=== PATIENT | male | born 1990 | race Caucasian/White ===

== ENCOUNTER 2018-06-21 15:54 | Emergency (ER) | payer OTHER, SELFPAY ==
--- NOTE | 2018-06-21 15:56 | ED_ITS ---
HPI - Extremity Injury (Upper) <DORINDA Quevedo - Last Filed: 06/21/18 21:51> General Chief Complaint: Skin/Abscess/Foreign Body Stated Complaint: LT HAND INJURY Time Seen by Provider: 06/21/18 15:55 Source: patient Mode of arrival: ambulatory Limitations: no limitations History of Present Illness HPI narrative: 28-year-old male here for complaint of lacerations and abrasions to his left hand. He states that he got his hand caught into a drill press when he was wearing a glove and the glove caught in the bit of the drill press pulling his hand into the drill bit. He reports this happened just prior to arrival. He reports pain across the dorsal aspect of the left hand. Increased pain with motion of the left hand. He does not know when his last tetanus was. He denies any other injuries or concerns at this timeframe. complaint: injury to: left Related Data Home Medications Medication Instructions Recorded Confirmed No Known Home Medications 06/21/18 06/21/18 Allergies Allergy/AdvReac Type Severity Reaction Status Date / Time No Known Drug Allergies Allergy Verified 06/21/18 16:00 Review of Systems <DORINDA Quevedo - Last Filed: 06/21/18 21:51> Constitutional Denies chills, Denies fever(s), Denies lethargy and Denies weakness Eyes Denies change in vision, Denies eye discharge, Denies irritation and Denies loss of vision ENT Ears, Nose, Mouth, and Throat: Denies change in voice, Denies neck pain and Denies sore throat Cardiovascular Denies chest pain, Denies irregular heart rhythm, Denies lightheadedness, Denies palpitations, Denies dyspnea, Denies dyspnea on exertion and Denies orthopnea Respiratory Denies cough, Denies dyspnea, Denies dyspnea on exertion and Denies wheezing Gastrointestinal Gastrointestinal: Denies abdominal pain, Denies change in bowel habits, Denies diarrhea, Denies nausea and Denies vomiting Genitourinary Denies hematuria, Denies flank pain, Denies urinary incontinence and Denies urinary urgency Musculoskeletal Denies neck pain Comments: Left hand pain and abrasions Integumentary/Breasts Denies pruritus, Denies erythema, Denies rash and Denies wounds Neurologic Denies confusion, Denies loss of vision and Denies weakness Psychiatric Denies anxiety, Denies confusion, Denies depression, Denies homicidal ideation and Denies suicidal ideation Endocrine Denies palpitations Hematologic/Lymphatic Denies easy bruising Allergic/Immunologic Denies wheezing Exam <DORINDA Quevedo - Last Filed: 06/21/18 21:51> Initial Vital Signs Initial Vital Signs: Vital Signs Temperature 98.9 F 06/21/18 15:57 Pulse Rate 63 06/21/18 15:57 Respiratory Rate 14 06/21/18 15:57 Blood Pressure 119/77 06/21/18 15:57 Pulse Oximetry 97 06/21/18 15:57 Const General: cooperative and well developed Nutritional Appearance: well nourished Orientation: alert, awake, oriented x3 and not confused HENMT Mouth: oral mucosae normal and moist mucous membranes Eyes Conjunctivae: conjunctivae normal Sclera: sclerae normal Pupils: PERRL EOM: EOM intact bilaterally Resp Effort & Inspection: normal respiratory effort, able to speak in complete sentences, no respiratory distress and no use of accessory muscles Auscultation: clear to auscultation bilaterally, no rales, no rhonchi and no wheezes Cardio Rate: regular rate Rhythm: regular rhythm Heart Sounds: no click, no gallops, no murmurs and no rubs Pulses: normal peripheral pulses Skin General: no rashes or lesions noted, No jaundice and No petechiae Neuro General: alert, oriented x3, gait normal and no focal motor deficits Speech: speech normal Extrem Other: Left hand with abrasions to the dorsal aspect of the left hand. 1.5 cm laceration to the dorsal aspect of the left hand proximal to the thumb. Distal sensation is intact. Full range of motion. Distal cap refill less than 2 sec. Distal pulses intact <Regino Rice DO - Last Filed: 06/22/18 12:58> Initial Vital Signs Initial Vital Signs: Vital Signs Temperature 98.9 F 06/21/18 15:57 Pulse Rate 63 06/21/18 15:57 Respiratory Rate 14 06/21/18 15:57 Blood Pressure 119/77 06/21/18 15:57 Pulse Oximetry 97 06/21/18 15:57 Procedures <DORINDA Quevedo - Last Filed: 06/21/18 21:51> Laceration Repair Laceration 1: Site: hand Side (If applicable): left Size (cm): 2 Description: irregular Depth: simple, single layer Local Anesthetic: lidocaine 1% Amount of anesthesia used (mL): 2 Pre-repair: wound explored and irrigated extensively Skin layer closed with: nylon Size (cm): 5-0 Number of sutures: 4 Technique: simple, interrupted Course <DORINDA Quevedo - Last Filed: 06/21/18 21:51> Orders Ordered: Discontinued Medications Diphtheria/Tetanus/Acell Pertussis (Adacel) 0.5 ml IM .ONCE ONE Stop: 06/21/18 16:16 Last Admin: 06/21/18 17:05 Dose: 0.5 ml Vital Signs - 8 hr 06/21/18 15:57 06/21/18 18:38 Temperature 98.9 F Pulse Rate 63 80 Respiratory Rate 14 18 Blood Pressure 119/77 113/70 Pulse Oximetry 97 100 <Regino Rice DO - Last Filed: 06/22/18 12:58> Orders Ordered: Discontinued Medications Diphtheria/Tetanus/Acell Pertussis (Adacel) 0.5 ml IM .ONCE ONE Stop: 06/21/18 16:16 Last Admin: 06/21/18 17:05 Dose: 0.5 ml Vital Signs - 8 hr 06/21/18 15:57 06/21/18 18:38 Temperature 98.9 F Pulse Rate 63 80 Respiratory Rate 14 18 Blood Pressure 119/77 113/70 Pulse Oximetry 97 100 MDM - Extremity Injury (Upper) <DORINDA Quevedo - Last Filed: 06/21/18 21:51> Imaging Data Left hand: Radiologist's impression: XRay Report Signed Patient: Ciaran Garcia MR#: [id number] : 1990 Acct:[id number] Age/Sex: 28 / M Date of Service: 06/21/18 Loc: ED Accession Number: [id number] Procedure: XR hand LT min 3V Ordering Provider: Ciaran Tavarez PROCEDURE: XR HAND LT MIN 3V INDICATIONS: LEFT HAND PAIN TECHNIQUE: 3 views of the hand(s) acquired. COMPARISON: None. FINDINGS: Bones: No fractures or dislocations. Carpal bones are normally aligned. No suspicious bony lesions. Soft tissues: No suspicious soft tissue calcifications. IMPRESSION: No acute radiographic findings. If pain persists, repeat study in 5 -7 days is recommended to exclude occult fracture. Dictated by: Sherri Frost M.D. on 06/21/2018 at 18:01 Approved by: Sherri Frost M.D. on 06/21/2018 at 18:02 [facility] Narrative Medical decision making narrative: x-ray of left hand was obtained and was negative for fracture. Laceration to the left hand was closed with 4 sutures. Wounds dressed with bacitracin and a dressing. Tetanus was updated in the emergency room. Sutures removed in 7-10 days. Follow up with primary care provider later this week for re-evaluation. For any worsening symptoms return to the emergency room. Dress wound daily with bacitracin and a dressing until healed. Keep wound clean and dry for the next 24 hr. After this timeframe a shower briefly. No swimming or emergent. After shower dry wound dressed with bacitracin and dressing. [id number] Tylenol or Motrin as needed for any discomfort. Discharge Plan Departure Patient Disposition: Home Clinical Impression: Injury of hand, left, Laceration of hand, left Discharge Date/Time: 06/21/18 18:38 Interventions: ED Discharge Assessment Last Done: 06/21/18 18:38 Instructions: DI for Hand Injury Activity Restrictions/Additional Instructions: x-ray of left hand was obtained and was negative for fracture. Laceration to the left hand was closed with 4 sutures. Wounds dressed with bacitracin and a dressing. Tetanus was updated in the emergency room. Sutures removed in 7-10 days. Follow up with primary care provider later this week for re-evaluation. For any worsening symptoms return to the emergency room. Dress wound daily with bacitracin and a dressing until healed. Keep wound clean and dry for the next 24 hr. After this timeframe a shower briefly. No swimming or emergent. After shower dry wound dressed with bacitracin and dressing. [id number] Tylenol or Motrin as needed for any discomfort. Prescriptions: No Action No Known Home Medications RF: 0 Referrals: Ora Friend PA-C [Primary Care Provider] - Stand Alone Forms: Against Medical Advice <Regino Rice DO - Last Filed: 06/22/18 12:58> Cosign ED Attending Cosignature Attestation: I was immediately available in the department for consultation. Documentation has been reviewed. I agree with assessment and plan.
[2018-06-21 15:57] VITALS: BP 119/77; PULSE 63; RESP 14; TEMP 37.2; O2SAT 97; BMI 21.7
[2018-06-21] MEDS: TET,DIPH,PERTUSS(ACELL),VAC/PF 0.5 ML SYRINGE IM (17:05)
--- NOTE | 2018-06-21 17:45 | DI.RAD.S_ITS ---
PROCEDURE: XR HAND LT MIN 3V INDICATIONS: LEFT HAND PAIN TECHNIQUE: 3 views of the hand(s) acquired. COMPARISON: None. FINDINGS: Bones: No fractures or dislocations. Carpal bones are normally aligned. No suspicious bony lesions. Soft tissues: No suspicious soft tissue calcifications. IMPRESSION: No acute radiographic findings. If pain persists, repeat study in 5-7 days is recommended to exclude occult fracture. Dictated by: Sherri Frost M.D. on 06/21/2018 at 18:01 Approved by: Sherri Frost M.D. on 06/21/2018 at 18:02
--- NOTE | 2018-06-21 18:02 | PC.NURSE ---
placed telfa, conform and bacitracin per Corby.
[2018-06-21 18:38] VITALS: BP 113/70; PULSE 80; RESP 18; O2SAT 100
== END 2018-06-21 18:38 | disposition home or self-care (01) ==
PROVIDERS: Emergency Provider Nurse Practitioner Family; PCP Physician Assistant
DX: S61.412A Laceration without foreign body of left hand, initial encounter (principal); W31.1XXA Contact with metalworking machines, initial encounter
CPT/HCPCS: 12002; 73130; 90471; 99282; 99283; 90715

== ENCOUNTER → 2020-06-09 16:49 | Outpatient (CLI) | payer OTHER, MEDICAID, SELFPAY ==
--- NOTE | 2020-06-09 16:53 | DI.RAD.S_ITS ---
PROCEDURE: XR TIBIA FIBULA RT 2V INDICATIONS: trauma to hernandez, 2x2cm nontender lump, r/o bony abnormality TECHNIQUE: 2 views of the tibia and fibula were acquired. COMPARISON: None. FINDINGS: Bones: No fractures or dislocations. No suspicious bony lesions. Mild anterior soft tissue swelling IMPRESSION: No fracture Dictated by: Keanu Angel M.D. on 06/09/2020 at 17:20 Approved by: Keanu Angel M.D. on 06/09/2020 at 17:21
== END ==
PROVIDERS: Referring Provider Physician Assistant; Visit Provider Physician Assistant
DX: R22.42 Localized swelling, mass and lump, left lower limb (principal); S89.91XA Unspecified injury of right lower leg, initial encounter; X58.XXXA Exposure to other specified factors, initial encounter
CPT/HCPCS: 73590

== ENCOUNTER 2020-09-05 17:22 | Emergency (ER) | payer OTHER, MEDICAID, SELFPAY ==
--- NOTE | 2020-09-05 17:39 | DI.RAD.S_ITS ---
PROCEDURE: XR HIP W PEL IF DONE RT 2V INDICATIONS: Trauma, fell off skateboard hitting hip on concrete TECHNIQUE: Two views of the right hip (AP view of the pelvis and frog-leg view of the right hip) COMPARISON: None. FINDINGS: Bones: No fractures or dislocations. No suspicious bony lesions. The visualized pelvic ring appears intact. Soft tissues: No suspicious soft tissue calcifications or masses. IMPRESSION: Normal study. Dictated by: Jeferson Fonseca M.D. on 09/05/2020 at 18:15 Approved by: Jeferson Fonseca M.D. on 09/05/2020 at 18:15
[2020-09-05 17:40] VITALS: BP 125/78; PULSE 71; RESP 14; TEMP 36.7; O2SAT 99; BMI 21.1
[2020-09-05] MEDS: KETOROLAC 60 MG/2 ML VIAL 30 MG IM (18:24)
--- NOTE | 2020-09-05 19:16 | ED.LOWEXIN ---
HPI - Extremity Injury (Lower) <MERRITT Phan - Last Filed: 09/05/20 19:19> General Chief Complaint: Extremity Injury, Lower Stated Complaint: skateboard fall, injured right side hip Time Seen by Provider: 09/05/20 17:40 Source: patient Mode of arrival: Wheelchair Limitations: no limitations History of Present Illness HPI Narrative: The patient is a 30-year-old male former smoker with no pertinent medical history presents with a chief complaint of right-sided hip pain after falling off a skateboard. He slipped and fell this hip on a cement edge. He has an abrasion there. He states has been increasing his painful since that happened this afternoon. He did not hit his head, denies any neck or back pain. He states his tetanus is within the past few years. Related Data Home Medications Medication Instructions Recorded Confirmed No Known Home Medications 06/21/18 06/09/20 Previous Rx's Medication Instructions Recorded ketorolac 10 mg PO TID PRN #14 tab 09/05/20 Allergies Allergy/AdvReac Type Severity Reaction Status Date / Time No Known Drug Allergies Allergy Verified 09/05/20 17:40 Review of Systems <MERRITT Phan - Last Filed: 09/05/20 19:19> Review of Systems Narrative: GENERAL: Denies chills, fatigue, malaise, fever, sweats. HEENT: Denies sinus pain, ear pain, sore throat, difficulty swallowing, dizziness. RESPIRATORY: Denies dyspnea, cough, wheezing, hemoptysis, sputum. CARDIOVASCULAR: Denies chest pain, palpitations, orthopnea, edema, GASTROINTESTINAL: Denies nausea, vomiting, abdominal pain, diarrhea, constipation, melena. : Denies dysuria, frequency, incontinence, hematuria, urinary retention. MUSCULOSKELETAL: See HPI SKIN: See HPI NEUROLOGIC: Denies weakness, headache, numbness, change in speech, confusion, seizures, incoordination. PSYCHIATRIC: No concerning psychosocial issues. 12 point review of systems is negative except for those stated above Patient History <MERRITT Phan - Last Filed: 09/05/20 19:19> Medical History Lump of skin of left lower extremity (Acute) No significant past medical history (Acute) Family History Father Essential hypertension Heart muscle disorder caused by another medical condition Mother Essential hypertension Irritable bowel syndrome without diarrhea Alcoholism Social History Smoking Status: Former smoker Smoking Status: Former smoker alcohol intake frequency: 0-2 drinks per day Substance Use Type: does not use Exam <MERRITT Phan - Last Filed: 09/05/20 19:19> Narrative Exam Narrative: GENERAL: This is a well-nourished, well-developed patient, in no acute distress HEAD: Atraumatic. Normocephalic. No temporal or scalp tenderness. EYES: Pupils equal round and reactive. Extraocular motions intact. No scleral icterus. No injection or drainage. ENT: Nose without bleeding, purulent drainage or septal hematoma. Wearing a mask Airway patent. NECK: Trachea midline. No JVD or lymphadenopathy. Supple, nontender, no meningeal signs. CARDIOVASCULAR: Regular rate and rhythm without murmurs, gallops, or rubs. RESPIRATORY: Clear to auscultation. Breath sounds equal bilaterally. No wheezes, rales, or rhonchi. No cough. No increased respiratory effort. No accessory muscle use. GI: Active bowel sounds all 4 quadrants. No pain to palpation, no guarding EXTREMITIES: See skin exam. Pain to palpation generalized right hip. Decreased range of motion all montes. Positive right pedal pulses. BACK: No pain to CT or L-spine palpation. Nontender without deformity or crepitance. No flank tenderness. NEURO: AOx3. SKIN: 2 x 3 cm abrasion noted on right hip. Surrounded ecchymosis. Initial Vital Signs Initial Vital Signs: Vital Signs Temperature 98.0 F 09/05/20 17:40 Pulse Rate 71 09/05/20 17:40 Respiratory Rate 14 09/05/20 17:40 Blood Pressure 125/78 09/05/20 17:40 Pulse Oximetry 99 09/05/20 17:40 <Memo Castillo DO - Last Filed: 09/05/20 19:28> Initial Vital Signs Initial Vital Signs: Vital Signs Temperature 98.0 F 09/05/20 17:40 Pulse Rate 71 09/05/20 17:40 Respiratory Rate 14 09/05/20 17:40 Blood Pressure 125/78 09/05/20 17:40 Pulse Oximetry 99 09/05/20 17:40 Scores <MERRITT Phan - Last Filed: 09/05/20 19:19> GCS Branch coma scale eye opening: Spontaneous Lacey coma scale verbal response: Orientated Branch coma scale motor response: Obey commands Lacey coma scale total score: 15 Course <MERRITT Phan - Last Filed: 09/05/20 19:19> Orders Ordered: ED Orders 09/05/20 17:39 XR hip w pel if done RT 2V Stat Discontinued Medications Ketorolac Tromethamine (Toradol) 30 mg IM NOW ONE Stop: 09/05/20 18:21 Last Admin: 09/05/20 18:24 Dose: 30 mg Documented by: ARIANE Vital Signs Vital signs: Vital Signs - 8 hr 09/05/20 17:40 09/05/20 19:22 Temperature 98.0 F Pulse Rate 71 61 Respiratory Rate 14 14 Blood Pressure 125/78 119/66 Pulse Oximetry 99 98 <Memo Castillo DO - Last Filed: 09/05/20 19:28> Orders Ordered: ED Orders 09/05/20 17:39 XR hip w pel if done RT 2V Stat Discontinued Medications Ketorolac Tromethamine (Toradol) 30 mg IM NOW ONE Stop: 09/05/20 18:21 Last Admin: 09/05/20 18:24 Dose: 30 mg Documented by: ARIANE Vital Signs Vital signs: Vital Signs - 8 hr 09/05/20 17:40 09/05/20 19:22 Temperature 98.0 F Pulse Rate 71 61 Respiratory Rate 14 14 Blood Pressure 125/78 119/66 Pulse Oximetry 99 98 MDM - Extremity Injury (Lower) <MERRITT Phan - Last Filed: 09/05/20 19:19> Imaging Data Hip x-ray: Radiologist's Impression: [address] [place] [id number] XRay Report Signed Patient: Ciaran Garcia [facility]#: [id number] : 1990Acct:[id number] Age/Sex: 30 / MDate of Service: 09/05/20 Loc: ED Accession Number: [id number] Procedure: XR hip w pel if done RT 2V Ordering Provider: Nakita Mlils D.O. PROCEDURE: XR HIP W PEL IF DONE RT 2V INDICATIONS: Trauma, fell off skateboard hitting hip on concrete TECHNIQUE: Two views of the right hip (AP view of the pelvis and frog-leg view of the right hip) COMPARISON: None. FINDINGS: Bones: No fractures or dislocations. No suspicious bony lesions. The visualized pelvic ring appears intact. Soft tissues: No suspicious soft tissue calcifications or masses. IMPRESSION: Normal study. Dictated by: Jeferson Fonseca M.D. on 09/05/2020 at 18:15 Approved by: Jeferson Fonseca M.D. on 09/05/2020 at 18:15 [facility] Narrative Medical decision making narrative: The patient is a 30-year-old male who presents with a chief complaint of hip pain after follow-up of his skateboard. He is neurovascularly intact, has a negative x-ray nasal ambulate well. Toradol helped improve his pain, small prescription provided. Discussed not combining with Aleve or ibuprofen. Encouraged follow-up with primary care provider in the next few days. Discussed monitoring his abrasion for signs symptoms of infection such as redness extending erythema etcetera. Patient has no questions or concerns upon discharge and states understanding return precautions as well as follow-up care. He is able to ambulate hemodynamically stable upon discharge. Discharge Plan Departure Patient Disposition: Home Clinical Impression: Fall from skateboard, initial encounter, Abrasion Contusion of hip Qualifiers: Encounter type: initial encounter Laterality: right Qualified Code(s): S70.01XA - Contusion of right hip, initial encounter Discharge Date/Time: 09/05/20 19:22 Instructions: Help for Hip Pain, DI for Contusion, DI for Abrasion, DI for Hip Pain Activity Restrictions/Additional Instructions: Thank you for trusting us with your care today As I discussed, your x-ray shows no acute fracture. This does not rule out a soft tissue injury such as a ligament or tendon injury. It is important that you follow up with primary care provider, especially if worsening or no improvement. There can be fractures that did not show up on initial x-ray. I have given you a prescription of Toradol. This is an NSAID. Do not combine it with other NSAIDs such as Aleve or ibuprofen. I suggest taking it with some food, as it can irritate your stomach. Please use rest and ice as well. Please come back to emergency department for any acute concerns. Please follow-up with primary care provider next few days Prescriptions: New ketorolac 10 mg tablet 10 mg PO TID PRN (Reason: pain) Qty: 14 RF: 0 No Action No Known Home Medications RF: 0 <Memo Castillo, DO - Last Filed: 09/05/20 19:28> Cosign ED Attending Cosignature Attestation: Dr Castillo Co-Sign Statement: I was available for consultation during this patient's emergency department visit. This chart is signed by myself for administrative purposes only. I did not have direct contact with this patient during this visit. They were seen independently by the APC.
[2020-09-05 19:22] VITALS: BP 119/66; PULSE 61; RESP 14; O2SAT 98
== END 2020-09-05 19:22 | disposition home or self-care (01) ==
PROVIDERS: Emergency Provider Nurse Practitioner Family
DX: S70.01XA Contusion of right hip, initial encounter (principal); S70.211A Abrasion, right hip, initial encounter; V00.131A Fall from skateboard, initial encounter
CPT/HCPCS: 73502; 96372; 99283; J1885

== ENCOUNTER → 2020-09-19 09:54 | Outpatient (CLI) | payer OTHER, MEDICAID, SELFPAY ==
[2020-09-19 10:26] LABS: Add Manual Diff / Slide Review NO; Basophils Absolute Auto 0 /uL (0-100); Basophils Percent Auto 0.5 % (0-2); Eosinophils Absolute Auto 100 /uL (0-450); Eosinophils Percent Auto 2.8 % (2-4); Hematocrit 41.7 % (41-53); Hemoglobin 14.2 g/dL (13.5-17.5); Lymphocytes Absolute Auto 1100 /uL (1100-4500); Lymphocytes Percent Auto 43.7 % (25-40); Mean Corpuscular HGB Conc 34.1 % (30-36); Mean Corpuscular Hemoglobin 32.1 PG (26-34); Mean Corpuscular Volume 94.1 fL (80-100); Monocytes Absolute Auto 200 /uL (0-900); Monocytes Percent Auto 6.4 % (3-14); Neutrophils Absolute Auto 1200 /uL (1500-7000); Neutrophils Percent Auto 46.6 % (50-75); Platelet Count 203 X10^3/uL (150-400); Red Blood Cell Count 4.43 X10^6/uL (4.5-5.9); White Blood Cell Count 2.5 X10^3/uL (4.5-11.0)
[2020-09-19 10:41] LABS: Alanine Aminotransferase 17 IU/L (<50); Albumin 4.5 g/dL (3.5-5.0); Albumin Globulin Ratio 1.6 (1.0-2.8); Alkaline Phosphatase 71 U/L (38-126); Aspartate Aminotransferase 30 IU/L (17-59); BUN Creatinine Ratio 16.7 (6-22); Bilirubin Total 1.5 mg/dL (0.2-1.3); Blood Urea Nitrogen 13 mg/dL (9-20); Calcium 9.8 mg/dL (8.4-10.2); Carbon Dioxide 31 mmol/L (22-32); Chloride 103 mmol/L (98-107); Cholesterol 168 mg/dL (140-199); Estimated Glomerular Filt Rate > 60.0 mL/min (>60); Globulin 2.9 g/dL (1.7-4.1); Glucose 95 mg/dL (70-100); HDL Cholesterol 65 mg/dL (40-60); HEMOLYSIS < 15 (0-50); LDL Cholesterol Calculated 83 mg/dL (<100); Potassium 4.7 mmol/L (3.4-5.1); Sodium 137 mmol/L (137-145); Total Protein 7.4 g/dL (6.3-8.2); Triglycerides 99 mg/dL (35-150)
[2020-09-19 11:17] LABS: Creatinine Urine Random 49.5 mg/dL; Microalbumin Urine Random < 0.6 mg/dL (0-1.6)
[2020-09-19 11:37] LABS: TSH w/ Reflex to FT4 2.61 uIU/mL (0.47-4.68)
== END ==
PROVIDERS: PCP Family Medicine; Referring Provider Family Medicine; Visit Provider Family Medicine
DX: Z13.220 Encounter for screening for lipoid disorders (principal); Z13.228 Encounter for screening for other metabolic disorders; Z13.29 Encounter for screening for other suspected endocrine disorder; Z82.49 Family history of ischemic heart disease and other diseases of the circulatory system
CPT/HCPCS: 36415; 80053; 80061; 82043; 82570; 84443; 85025

== ENCOUNTER → 2020-09-29 10:43 | Outpatient (CLI) | payer OTHER, MEDICAID, SELFPAY ==
[2020-09-29 12:15] LABS: Add Manual Diff / Slide Review NO; Basophils Absolute Auto 0 /uL (0-100); Basophils Percent Auto 0.6 % (0-2); Eosinophils Absolute Auto 100 /uL (0-450); Eosinophils Percent Auto 2.8 % (2-4); Hematocrit 42.6 % (41-53); Hemoglobin 14.5 g/dL (13.5-17.5); Lymphocytes Absolute Auto 1500 /uL (1100-4500); Lymphocytes Percent Auto 47.9 % (25-40); Mean Corpuscular HGB Conc 34.1 % (30-36); Mean Corpuscular Volume 93.8 fL (80-100); Monocytes Absolute Auto 200 /uL (0-900); Monocytes Percent Auto 7.5 % (3-14); Neutrophils Absolute Auto 1300 /uL (1500-7000); Neutrophils Percent Auto 41.2 % (50-75); Platelet Count 184 X10^3/uL (150-400); Red Blood Cell Count 4.54 X10^6/uL (4.5-5.9); White Blood Cell Count 3.1 X10^3/uL (4.5-11.0)
== END ==
PROVIDERS: PCP Family Medicine; Referring Provider Family Medicine; Visit Provider Family Medicine
DX: Z13.220 Encounter for screening for lipoid disorders (principal); Z13.228 Encounter for screening for other metabolic disorders; Z13.29 Encounter for screening for other suspected endocrine disorder; Z82.49 Family history of ischemic heart disease and other diseases of the circulatory system
CPT/HCPCS: 36415; 85025

== ENCOUNTER → 2022-09-17 14:28 | Outpatient (CLI) | payer OTHER, MEDICAID, SELFPAY ==
[2022-09-17 15:35] LABS: Add Manual Diff / Slide Review NO; Basophils Absolute Auto 0 /uL (0-100); Basophils Percent Auto 0.4 % (0-2); Eosinophils Absolute Auto 0 /uL (0-450); Eosinophils Percent Auto 1.1 % (2-4); Hematocrit 38.4 % (41-53); Hemoglobin 13.1 g/dL (13.5-17.5); Lymphocytes Absolute Auto 1000 /uL (1100-4500); Lymphocytes Percent Auto 34.4 % (25-40); Mean Corpuscular HGB Conc 34.1 % (30-36); Mean Corpuscular Hemoglobin 31.8 PG (26-34); Mean Corpuscular Volume 93.2 fL (80-100); Monocytes Absolute Auto 200 /uL (0-900); Monocytes Percent Auto 6.8 % (3-14); Neutrophils Absolute Auto 1600 /uL (1500-7000); Neutrophils Percent Auto 57.3 % (50-75); Platelet Count 195 X10^3/uL (150-400); Red Blood Cell Count 4.12 X10^6/uL (4.5-5.9); Red Cell Distribution Width 13.3 % (11.6-14.8); White Blood Cell Count 2.9 X10^3/uL (4.5-11.0)
[2022-09-17 15:46] LABS: Hemoglobin A1C% w Est Avg Glu 5.1 % (4.0-6.0)
[2022-09-17 16:24] LABS: Alanine Aminotransferase 23 IU/L (<50); Albumin 4.5 g/dL (3.5-5.0); Albumin Globulin Ratio 1.6 (1.0-2.8); Alkaline Phosphatase 73 U/L (38-126); Aspartate Aminotransferase 36 IU/L (17-59); BUN Creatinine Ratio 16.3 (6-22); Bilirubin Total 1.8 mg/dL (0.2-1.3); Blood Urea Nitrogen 14 mg/dL (9-20); Calcium 9.1 mg/dL (8.4-10.2); Carbon Dioxide 29 mmol/L (22-32); Chloride 100 mmol/L (98-107); Cholesterol 164 mg/dL (140-199); Estimated Glomerular Filt Rate > 60 mL/min (>60); Globulin 2.9 g/dL (1.7-4.1); Glucose 87 mg/dL (70-100); HDL Cholesterol 76 mg/dL (40-60); HEMOLYSIS < 15 (0-50); LDL Cholesterol Calculated 76 mg/dL (<100); Sodium 137 mmol/L (137-145); Total Protein 7.4 g/dL (6.3-8.2); Triglycerides 62 mg/dL (35-150)
== END ==
PROVIDERS: PCP Family Medicine; Referring Provider Family Medicine; Visit Provider Family Medicine
DX: Z00.00 Encounter for general adult medical examination without abnormal findings (principal); Z13.9 Encounter for screening, unspecified
CPT/HCPCS: 36415; 80053; 80061; 83036; 84443; 85025

== ENCOUNTER → 2023-03-01 10:38 | Outpatient (CLI) | payer OTHER, MEDICAID, SELFPAY ==
[2023-03-01 11:31] LABS: Add Manual Diff / Slide Review NO; Basophils Absolute Auto 0 /uL (0-100); Basophils Percent Auto 0.4 % (0-2); Eosinophils Absolute Auto 100 /uL (0-450); Eosinophils Percent Auto 1.7 % (2-4); Hematocrit 41.1 % (41-53); Hemoglobin 14.1 g/dL (13.5-17.5); Lymphocytes Absolute Auto 1100 /uL (1100-4500); Lymphocytes Percent Auto 31.7 % (25-40); Mean Corpuscular HGB Conc 34.4 % (30-36); Mean Corpuscular Hemoglobin 32.2 PG (26-34); Mean Corpuscular Volume 93.6 fL (80-100); Monocytes Absolute Auto 200 /uL (0-900); Monocytes Percent Auto 5.2 % (3-14); Neutrophils Absolute Auto 2100 /uL (1500-7000); Platelet Count 178 X10^3/uL (150-400); Red Blood Cell Count 4.39 X10^6/uL (4.5-5.9); Red Cell Distribution Width 13.6 % (11.6-14.8); White Blood Cell Count 3.4 X10^3/uL (4.5-11.0)
[2023-03-01 13:15] LABS: HEMOLYSIS 18 (0-50); Iron 110 ug/dL (49-181)
[2023-03-01 13:20] LABS: Alanine Aminotransferase 26 IU/L (<50); Albumin 4.5 g/dL (3.5-5.0); Albumin Globulin Ratio 1.9 (1.0-2.8); Alkaline Phosphatase 77 U/L (38-126); Aspartate Aminotransferase 34 IU/L (17-59); BUN Creatinine Ratio 21.5 (6-22); Bilirubin Total 1.1 mg/dL (0.2-1.3); Blood Urea Nitrogen 17 mg/dL (9-20); Calcium 9.3 mg/dL (8.4-10.2); Carbon Dioxide 27 mmol/L (22-32); Chloride 103 mmol/L (98-107); Estimated Glomerular Filt Rate > 60 mL/min (>60); Globulin 2.4 g/dL (1.7-4.1); Glucose 72 mg/dL (70-100); HEMOLYSIS < 15 (0-50); Potassium 4.4 mmol/L (3.4-5.1); Sodium 138 mmol/L (137-145); Total Protein 6.9 g/dL (6.3-8.2)
[2023-03-01 13:27] LABS: Percent Iron Saturation 36 % (20-50); Total Iron Binding Capacity 302 ug/dL (261-462); Transferrin 231 mg/dL (206-381)
[2023-03-01 14:05] LABS: Vitamin B12 333 pg/mL (239-931)
[2023-03-01 15:31] LABS: Vitamin D 25 Hydroxy (D3) 25.4 ng/mL (30.0-100.0)
[2023-03-02 07:36] LABS: x Labcorp Estim. Avg Glu (eAG) 105 mg/dL (.); x Labcorp Hemoglobin A1c 5.3 % (4.8-5.6)
== END ==
PROVIDERS: Family Provider Family Medicine; PCP Family Medicine; Referring Provider Family Medicine; Visit Provider Family Medicine
DX: Z00.00 Encounter for general adult medical examination without abnormal findings (principal); Z13.1 Encounter for screening for diabetes mellitus; Z13.9 Encounter for screening, unspecified
CPT/HCPCS: 36415; 80053; 82306; 82607; 83036; 83540; 83550; 85025

== ENCOUNTER 2023-05-06 15:15 | Outpatient (RCR) | payer OTHER, MEDICAID, SELFPAY ==
--- NOTE | 2023-03-29 15:30 | PT.OIE ---
Current Diagnoses Stiffness of right hip, not elsewhere classified (03/29/23) Stiffness of left hip, not elsewhere classified (03/29/23) Stiffness of other specified joint, not elsewhere classified (03/29/23) Low back pain, unspecified (03/29/23) Past Medical History (Last Reviewed 03/16/23 @ 09:23 by Ruel Best DO) Allergic rhinitis Encounter for well adult exam without abnormal findings History of anemia due to vitamin B12 deficiency Leukopenia Lump of skin of left lower extremity Male fertility problem No significant past medical history Right hip pain Vitamin D deficiency Visit Care Team Role Provider Type Ruel Best DO Attending Provider Physician Family Provider Primary Care Provider Referring Provider Specialty: [facility] Practice Address: [address] [place] [address], [facility] Email: [email or web address] Physical Therapy Initial Evaluation PT-OP-A Visit Information Start: 03/29/23 17:38 Freq: Status: Active Protocol: Document 03/29/23 14:45 DCW (Rec: 03/29/23 17:47 DCW [id number]) Out-Patient Physical Therapy Visit Information Visit Information Visit Type Initial Evaluation Visit Start Time 14:45 Visit Stop Time 15:25 Total Visit Minutes 40 Visit Number 1 Number of SKIN CARE INSTRUCTOR Visits 0 Evaluation Information Evaluation Date 03/29/23 PT-OP-B Current Condition Start: 03/29/23 17:38 Freq: Status: Active Protocol: Document 03/29/23 14:45 DCW (Rec: 03/29/23 17:47 DCW [id number]) Current Condition History of Current Condition Onset Date A few month history Current Complaints Low back pain and stiffness History of Current Condition Pt is a 33 year old male presenting with a 2-3 month history of low back pain and stiffness. 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 Upon return to work, pt was noticing that his back just wasn't feeling right, and reports unusual nerve sensations, but only in his back, not down his legs. Notes his pain might be a little better since it began, has been seeing a chiropractor, does a lot of foam roll and LE stretching. Pain seems to be worse with extended static standing, bending over his sink to do dishes, or lifting weight. PT-OP-C Subjective Start: 03/29/23 17:38 Freq: Status: Active Protocol: Document 03/29/23 14:45 DCW (Rec: 03/29/23 17:47 DCW [id number]) OP-PT Subjective Patient Comments Patient Comments I know this is really fairly moderate pain, I just don't want it to get worse. Patient Questionnaires Oswestry Low Back Index Oswestry Score 8/50 = 16% OP-PT Pain Assessment Pain Assessment Grid Paper Pain Assessment Grid Completed See scan PT-OP-F Manual Assessment Start: 03/29/23 17:38 Freq: Status: Active Protocol: Document 03/29/23 14:45 DCW (Rec: 03/30/23 16:10 DCW [id number]) Manual Assessments Soft Tissue Assessment Soft Tissue Mobility Assessment Lumbar paraspinals (L>R) moderate tone with tenderness to palpation 2/4: Pain with wincing Joint Mobility Assessment Joint Mobility Assessment L1-L5 hypomobility PT-OP-K Range of Motion Start: 03/29/23 17:38 Freq: Status: Active Protocol: Document 03/29/23 14:45 DCW (Rec: 03/29/23 17:50 DCW [id number]) Lumbar Spine Range of Motion Lumbar Spine Active Degrees Testing Position Standing Flexion 75 Extension 10 Lateral Flexion Left 57 Lateral Flexion Right 61 ROM Limitations Bony Restriction Comments Lateral flexion measured in cm from fingertips to floor PT-OP-L Special Tests Start: 03/29/23 17:38 Freq: Status: Active Protocol: Document 03/29/23 14:45 DCW (Rec: 03/29/23 17:50 DCW [id number]) Special Tests Lumbar Spine Special Tests Vertical Spine Loading Test Results Increased pain with compression during left lateral flexion Straight Leg Raise Test Results Hamstring tightness at 50? bilaterally Standing Flexion Test Results Negative Slump Test Results Negative Manual Traction Test Results Negative Compression Test Results Negative A-P Shearing Test Results Negative PT-OP-M Strength Start: 03/29/23 17:38 Freq: Status: Active Protocol: Document 03/29/23 14:45 DCW (Rec: 03/30/23 16:10 DCW [id number]) Trunk Strength Trunk Manual Muscle Testing Core Stabilization Good core contraction, able to maintain abdominal bracing with double leg lift. PT-OP-T Assessment and Plan Start: 03/29/23 17:38 Freq: Status: Active Protocol: Document 03/29/23 14:45 DCW (Rec: 03/30/23 16:23 DCW [id number]) Physical Therapy Assessment Rehab Potential Rehabilitation Potential Good Evaluation Complexity Number of Personal Factors/Comorbidities 0 Number of Body Systems Impaired 1-2 Clinical Presentation at Evaluation Stable Impairments Impairments Activity Tolerance,Functional Activities,Functional Mobility ,Pain,Posture,ROM,Soft Tissue Mobility,Strength,Tone Goals Three Impairment Standing lumbar extension measured at 10? Chipper Operator Goal (LTG) Pt to display an increase in active lumbar extension of at least 15? to 25? to demonstrate ability to participate in pain-free functional mobility LTG Duration 05/29/23 Two Impairment Pt experiences increased pain when standing bent over at his sink Chipper Operator Goal (LTG) Pt to report ability to stand and wash dishes for 30 minutes without increased back pain. LTG Duration 05/29/23 One Impairment Pt does not have an appropriate home exercise program Short Term Goal (STG) Pt to be independent and compliant with an appropriate HEP STG Duration 04/29/23 Assessment Summary Assessment Pt presents with signs and symptoms consistent with referring diagnosis of low back pain. Pt has general soft tissue stiffness in paraspinals musculature, as well as hypomobility of lumbar vertebrae, both with joint mobilizations and limitations actively getting into extension. Also demonstrates hamstring tightness and hip flexor tightness, which is likely increasing limitations of lumbar mobility. Pt does display good overall strength, and has already begun an good low back stretching routine. Biggest current limitations include bending over at the sink to wash dishes, static standing, or lifting weights. Will benefit from skilled therapy focusing on body mechanics, stretching/ flexibility, ROM, core stabilization education, and traction. Physical Therapy Plan Frequency and Duration Frequency of Treatment 2x/Week Plan of Care Start Date 03/29/23 Plan of Care End Date 05/29/23 Therapeutic Interventions Therapeutic Interventions Home Exercise Program,Joint Mobilizations,Manual Therapy, Neuromuscular Re-education, Patient/Caregiver Education, Self-Care/Home Management,Soft Tissue Mobilization, Therapeutic Activities, Therapeutic Exercises Modalities Cold Pack/Ice Massage,Electric Stimulation,Hot Packs, Ultrasound Next Visit Focus/Plan Next Note Type Treatment Note Next Visit Plan Lumbar mobility, body mechanics training, STM
--- NOTE | 2023-03-29 15:30 | PT.OPPOC ---
Physical, Occupational & Speech Therapy At [facility] Current Diagnoses Stiffness of right hip, not elsewhere classified (03/29/23) Stiffness of left hip, not elsewhere classified (03/29/23) Stiffness of other specified joint, not elsewhere classified (03/29/23) Low back pain, unspecified (03/29/23) Visit Care Team Role Provider Type Ruel Best DO Attending Provider Physician Family Provider Primary Care Provider Referring Provider Specialty: Family Practice Address: [address] [place] [address] Email: [email or web address] Plan Of Care PT-OP-T Assessment and Plan Start: 03/29/23 17:38 Freq: Status: Active Protocol: Document 03/29/23 14:45 DCW (Rec: 03/30/23 16:23 DCW [id number]) Physical Therapy Assessment Rehab Potential Rehabilitation Potential Good Evaluation Complexity Number of Personal Factors/Comorbidities 0 Number of Body Systems Impaired 1-2 Clinical Presentation at Evaluation Stable Impairments Impairments Activity Tolerance,Functional Activities,Functional Mobility ,Pain,Posture,ROM,Soft Tissue Mobility,Strength,Tone Goals Three Impairment Standing lumbar extension measured at 10? Or Nurse Manager Goal (LTG) Pt to display an increase in active lumbar extension of at least 15? to 25? to demonstrate ability to participate in pain-free functional mobility LTG Duration 05/29/23 Two Impairment Pt experiences increased pain when standing bent over at his sink Care Home Goal (LTG) Pt to report ability to stand and wash dishes for 30 minutes without increased back pain. LTG Duration 05/29/23 One Impairment Pt does not have an appropriate home exercise program Short Term Goal (STG) Pt to be independent and compliant with an appropriate HEP STG Duration 04/29/23 Assessment Summary Assessment Pt presents with signs and symptoms consistent with referring diagnosis of low back pain. Pt has general soft tissue stiffness in paraspinals musculature, as well as hypomobility of lumbar vertebrae, both with joint mobilizations and limitations actively getting into extension. Also demonstrates hamstring tightness and hip flexor tightness, which is likely increasing limitations of lumbar mobility. Pt does display good overall strength, and has already begun an good low back stretching routine. Biggest current limitations include bending over at the sink to wash dishes, static standing, or lifting weights. Will benefit from skilled therapy focusing on body mechanics, stretching/ flexibility, ROM, core stabilization education, and traction. Physical Therapy Plan Frequency and Duration Frequency of Treatment 2x/Week Plan of Care Start Date 03/29/23 Plan of Care End Date 05/29/23 Therapeutic Interventions Therapeutic Interventions Home Exercise Program,Joint Mobilizations,Manual Therapy, Neuromuscular Re-education, Patient/Caregiver Education, Self-Care/Home Management,Soft Tissue Mobilization, Therapeutic Activities, Therapeutic Exercises Modalities Cold Pack/Ice Massage,Electric Stimulation,Hot Packs, Ultrasound Next Visit Focus/Plan Next Note Type Treatment Note Next Visit Plan Lumbar mobility, body mechanics training, STM Plan of Care Dates Plan of Care Start Date 03/29/23 Plan of Care End Date 05/29/23 Electronically Signed by: Omero Fox, PT 03/30/23 4126 If you are in agreement with this Plan of Care, please return a signed and dated copy. I have reviewed this Plan of Care and certify that the skilled therapy services above are required to meet the patient?s needs. Physician Signature Date Printed Name and Credentials Clinical Instructor Signature Printed Name and Credentials
--- NOTE | 2023-03-31 14:45 | PT.OTN ---
Current Diagnoses Stiffness of right hip, not elsewhere classified (03/31/23) Stiffness of left hip, not elsewhere classified (03/31/23) Stiffness of other specified joint, not elsewhere classified (03/31/23) Low back pain, unspecified (03/31/23) Physical Therapy Treatment Note PT-OP-A Visit Information Start: 03/29/23 17:38 Freq: Status: Active Protocol: Document 03/31/23 14:00 DCW (Rec: 03/31/23 14:45 DCW [id number]) Out-Patient Physical Therapy Visit Information Visit Information Visit Type Treatment Note Visit Start Time 14:00 Visit Stop Time 14:45 Total Visit Minutes 45 Visit Number 2 Number of RADIO DIVISION OFFICER Visits 0 Evaluation Information Evaluation Date 03/29/23 PT-OP-B Current Condition Start: 03/29/23 17:38 Freq: Status: Active Protocol: Document 03/29/23 14:45 DCW (Rec: 03/29/23 17:47 DCW [id number]) Current Condition History of Current Condition Onset Date A few month history Current Complaints Low back pain and stiffness History of Current Condition Pt is a 33 year old male presenting with a 2-3 month history of low back pain and stiffness. 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 Upon return to work, pt was noticing that his back just wasn't feeling right, and reports unusual nerve sensations, but only in his back, not down his legs. Notes his pain might be a little better since it began, has been seeing a chiropractor, does a lot of foam roll and LE stretching. Pain seems to be worse with extended static standing, bending over his sink to do dishes, or lifting weight. PT-OP-C Subjective Start: 03/29/23 17:38 Freq: Status: Active Protocol: Document 03/31/23 14:00 DCW (Rec: 03/31/23 14:45 DCW [id number]) OP-PT Subjective Patient Comments Patient Comments Pt reports his back feels pretty good, admits that he has been working on his hamstring stretch, but has maybe hit it too hard. PT-OP-F Manual Assessment Start: 03/29/23 17:38 Freq: Status: Active Protocol: Document 03/29/23 14:45 DCW (Rec: 03/30/23 16:10 DCW [id number]) Manual Assessments Soft Tissue Assessment Soft Tissue Mobility Assessment Lumbar paraspinals (L>R) moderate tone with tenderness to palpation 2/4: Pain with wincing Joint Mobility Assessment Joint Mobility Assessment L1-L5 hypomobility PT-OP-K Range of Motion Start: 03/29/23 17:38 Freq: Status: Active Protocol: Document 03/29/23 14:45 DCW (Rec: 03/29/23 17:50 DCW [id number]) Lumbar Spine Range of Motion Lumbar Spine Active Degrees Testing Position Standing Flexion 75 Extension 10 Lateral Flexion Left 57 Lateral Flexion Right 61 ROM Limitations Bony Restriction Comments Lateral flexion measured in cm from fingertips to floor PT-OP-L Special Tests Start: 03/29/23 17:38 Freq: Status: Active Protocol: Document 03/29/23 14:45 DCW (Rec: 03/29/23 17:50 DCW [id number]) Special Tests Lumbar Spine Special Tests Vertical Spine Loading Test Results Increased pain with compression during left lateral flexion Straight Leg Raise Test Results Hamstring tightness at 50? bilaterally Standing Flexion Test Results Negative Slump Test Results Negative Manual Traction Test Results Negative Compression Test Results Negative A-P Shearing Test Results Negative PT-OP-M Strength Start: 03/29/23 17:38 Freq: Status: Active Protocol: Document 03/29/23 14:45 DCW (Rec: 03/30/23 16:10 DCW [id number]) Trunk Strength Trunk Manual Muscle Testing Core Stabilization Good core contraction, able to maintain abdominal bracing with double leg lift. PT-OP-Q Treatments Start: 03/29/23 17:38 Freq: Status: Active Protocol: Document 03/31/23 14:00 DCW (Rec: 03/31/23 14:45 DCW [id number]) Gym Equipment Therapeutic Ball Pelvic tilts/circles Exercise Details Pelvic tilts/circles Ball Size/Color Green - 65 cm Body Position Sitting Therapeutic Exercises Standing Exercises Pallof press Standing Exercise Name Pallof press Side bilateral Resistance Green Manual Therapy Treatment Soft Tissue Mobilization Lumbar Paraspinals Body Location Lumbar paraspinals Mobilization Type Strumming,Sustained Pressure Intensity/Depth Moderate Body Position Prone Joint Mobilizations Lumbar Joint L1-5 Direction P-A Grade III Manual Traction Lower Extremity Details Short-axis B LE traction Body Position Hooklying Nerve Glides Sciatic Nerve glide Nerve Siatic nerve glide Body Position Seated Comments Hold LAQ with cervical flexion /extension combined with PF/DF PT-OP-T Assessment and Plan Start: 03/29/23 17:38 Freq: Status: Active Protocol: Document 03/31/23 14:00 DCW (Rec: 03/31/23 14:45 DCW [id number]) Physical Therapy Assessment Impairments Impairments Activity Tolerance,Functional Activities,Functional Mobility ,Pain,Posture,ROM,Soft Tissue Mobility,Strength,Tone Goals Three Impairment Standing lumbar extension measured at 10? Concrete Sculptor Goal (LTG) Pt to display an increase in active lumbar extension of at least 15? to 25? to demonstrate ability to participate in pain-free functional mobility LTG Duration 05/29/23 Two Impairment Pt experiences increased pain when standing bent over at his sink Concrete Sculptor Goal (LTG) Pt to report ability to stand and wash dishes for 30 minutes without increased back pain. LTG Duration 05/29/23 One Impairment Pt does not have an appropriate home exercise program Short Term Goal (STG) Pt to be independent and compliant with an appropriate HEP STG Duration 04/29/23 Assessment Summary Assessment Pt noted some small achiness with treatment, but admitted it felt really good to get it moving. Tolerated treatment well, continue to focus on decreasing lumbar paraspinal tone and work to address lifting mechanics. Physical Therapy Plan Frequency and Duration Frequency of Treatment 2x/Week Plan of Care Start Date 03/29/23 Plan of Care End Date 05/29/23 Therapeutic Interventions Therapeutic Interventions Home Exercise Program,Joint Mobilizations,Manual Therapy, Neuromuscular Re-education, Patient/Caregiver Education, Self-Care/Home Management,Soft Tissue Mobilization, Therapeutic Activities, Therapeutic Exercises Modalities Cold Pack/Ice Massage,Electric Stimulation,Hot Packs, Ultrasound Next Visit Focus/Plan Next Note Type Treatment Note Next Visit Plan Lumbar mobility, body mechanics training, STM
--- NOTE | 2023-04-06 11:04 | PT.OTN ---
Current Diagnoses Stiffness of right hip, not elsewhere classified (04/06/23) Stiffness of left hip, not elsewhere classified (04/06/23) Stiffness of other specified joint, not elsewhere classified (04/06/23) Low back pain, unspecified (04/06/23) Physical Therapy Treatment Note PT-OP-A Visit Information Start: 03/29/23 17:38 Freq: Status: Active Protocol: Document 04/06/23 10:15 DCW (Rec: 04/06/23 11:04 DCW [id number]) Out-Patient Physical Therapy Visit Information Visit Information Visit Type Treatment Note Visit Start Time 10:15 Visit Stop Time 11:00 Total Visit Minutes 45 Visit Number 3 Number of PASTRY SOUS CHEF Visits 0 Evaluation Information Evaluation Date 03/29/23 PT-OP-B Current Condition Start: 03/29/23 17:38 Freq: Status: Active Protocol: Document 03/29/23 14:45 DCW (Rec: 03/29/23 17:47 DCW [id number]) Current Condition History of Current Condition Onset Date A few month history Current Complaints Low back pain and stiffness History of Current Condition Pt is a 33 year old male presenting with a 2-3 month history of low back pain and stiffness. 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 Upon return to work, pt was noticing that his back just wasn't feeling right, and reports unusual nerve sensations, but only in his back, not down his legs. Notes his pain might be a little better since it began, has been seeing a chiropractor, does a lot of foam roll and LE stretching. Pain seems to be worse with extended static standing, bending over his sink to do dishes, or lifting weight. PT-OP-C Subjective Start: 03/29/23 17:38 Freq: Status: Active Protocol: Document 04/06/23 10:15 DCW (Rec: 04/06/23 11:04 DCW [id number]) OP-PT Subjective Patient Comments Patient Comments I feel like I irritated it over the weekend. PT-OP-F Manual Assessment Start: 03/29/23 17:38 Freq: Status: Active Protocol: Document 03/29/23 14:45 DCW (Rec: 03/30/23 16:10 DCW [id number]) Manual Assessments Soft Tissue Assessment Soft Tissue Mobility Assessment Lumbar paraspinals (L>R) moderate tone with tenderness to palpation 2/4: Pain with wincing Joint Mobility Assessment Joint Mobility Assessment L1-L5 hypomobility PT-OP-K Range of Motion Start: 03/29/23 17:38 Freq: Status: Active Protocol: Document 03/29/23 14:45 DCW (Rec: 03/29/23 17:50 DCW [id number]) Lumbar Spine Range of Motion Lumbar Spine Active Degrees Testing Position Standing Flexion 75 Extension 10 Lateral Flexion Left 57 Lateral Flexion Right 61 ROM Limitations Bony Restriction Comments Lateral flexion measured in cm from fingertips to floor PT-OP-L Special Tests Start: 03/29/23 17:38 Freq: Status: Active Protocol: Document 03/29/23 14:45 DCW (Rec: 03/29/23 17:50 DCW [id number]) Special Tests Lumbar Spine Special Tests Vertical Spine Loading Test Results Increased pain with compression during left lateral flexion Straight Leg Raise Test Results Hamstring tightness at 50? bilaterally Standing Flexion Test Results Negative Slump Test Results Negative Manual Traction Test Results Negative Compression Test Results Negative A-P Shearing Test Results Negative PT-OP-M Strength Start: 03/29/23 17:38 Freq: Status: Active Protocol: Document 03/29/23 14:45 DCW (Rec: 03/30/23 16:10 DCW [id number]) Trunk Strength Trunk Manual Muscle Testing Core Stabilization Good core contraction, able to maintain abdominal bracing with double leg lift. PT-OP-Q Treatments Start: 03/29/23 17:38 Freq: Status: Active Protocol: Document 04/06/23 10:15 DCW (Rec: 04/06/23 11:04 DCW [id number]) Gym Equipment Therapeutic Ball Pelvic tilts/circles Exercise Details Pelvic tilts/circles Ball Size/Color Green - 65 cm Body Position Sitting Therapeutic Exercises Supine Exercises Piriformis Supine Exercise Name Piriformis stretch Side bilateral Comments Opposite knee to shoulder Prone Exercises Hip Flexors Prone Exercise Name Hip Flexor stretch Side bilateral Comments Manual hip extension stretch Sidelying Exercises Open Book Sidelying Exercise Name Open Book Side bilateral Manual Therapy Treatment Soft Tissue Mobilization Lumbar Paraspinals Body Location Lumbar paraspinals Mobilization Type Strumming,Sustained Pressure Intensity/Depth Moderate Body Position Prone Joint Mobilizations Lumbar Joint L1-5 Direction P-A Grade III Manual Traction Lower Extremity Details Short-axis B LE traction Body Position Hooklying PT-OP-T Assessment and Plan Start: 03/29/23 17:38 Freq: Status: Active Protocol: Document 04/06/23 10:15 DCW (Rec: 04/06/23 11:04 DCW [id number]) Physical Therapy Assessment Impairments Impairments Activity Tolerance,Functional Activities,Functional Mobility ,Pain,Posture,ROM,Soft Tissue Mobility,Strength,Tone Goals Three Impairment Standing lumbar extension measured at 10? Chcf Goal (LTG) Pt to display an increase in active lumbar extension of at least 15? to 25? to demonstrate ability to participate in pain-free functional mobility LTG Duration 05/29/23 Two Impairment Pt experiences increased pain when standing bent over at his sink Chcf Goal (LTG) Pt to report ability to stand and wash dishes for 30 minutes without increased back pain. LTG Duration 05/29/23 One Impairment Pt does not have an appropriate home exercise program Short Term Goal (STG) Pt to be independent and compliant with an appropriate HEP STG Duration 04/29/23 Assessment Summary Assessment Pt felt as though his back has loosened up after treatment today, benefitting from stretching. Still requires better core bracing with most activities Physical Therapy Plan Frequency and Duration Frequency of Treatment 2x/Week Plan of Care Start Date 03/29/23 Plan of Care End Date 05/29/23 Therapeutic Interventions Therapeutic Interventions Home Exercise Program,Joint Mobilizations,Manual Therapy, Neuromuscular Re-education, Patient/Caregiver Education, Self-Care/Home Management,Soft Tissue Mobilization, Therapeutic Activities, Therapeutic Exercises Modalities Cold Pack/Ice Massage,Electric Stimulation,Hot Packs, Ultrasound Next Visit Focus/Plan Next Note Type Treatment Note Next Visit Plan Lumbar mobility, body mechanics training, STM
--- NOTE | 2023-04-08 09:00 | PT.OTN ---
Addendum entered and electronically signed by Caitlin Dixon PTA 04/08/23 17:31: Pt good feedback response to use foam roller and stretching to incorporate at work for decreased tightness BLEs. He no irritation in LS during added LS rotation and revisit palloff press. Pt will pay attention later day and home over weekend. Original Note: Current Diagnoses Stiffness of right hip, not elsewhere classified (04/08/23) Stiffness of left hip, not elsewhere classified (04/08/23) Stiffness of other specified joint, not elsewhere classified (04/08/23) Low back pain, unspecified (04/08/23) Physical Therapy Treatment Note PT-OP-A Visit Information Start: 03/29/23 17:38 Freq: Status: Active Protocol: Document 04/08/23 08:18 SP (Rec: 04/08/23 09:02 SP [id number]) Out-Patient Physical Therapy Visit Information Visit Information Visit Type Treatment Note Visit Start Time 08:18 Visit Stop Time 09:00 Total Visit Minutes 42 Visit Number 4 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 Upon return to work, pt was noticing that his back just wasn't feeling right, and reports unusual nerve sensations, but only in his back, not down his legs. Notes his pain might be a little better since it began, has been seeing a chiropractor, does a lot of foam roll and LE stretching. Pain seems to be worse with extended static standing, bending over his sink to do dishes, or lifting weight. 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 Doesn't have a tball to do at home. He reports has been engaging TA with activities as instructed to support back during job duties. Patient Reported Progress Improving PT-OP-F Manual Assessment Start: 03/29/23 17:38 Freq: Status: Active Protocol: Document 03/29/23 14:45 DCW (Rec: 03/30/23 16:10 DCW [id number]) Manual Assessments Soft Tissue Assessment Soft Tissue Mobility Assessment Lumbar paraspinals (L>R) moderate tone with tenderness to palpation 2/4: Pain with wincing Joint Mobility Assessment Joint Mobility Assessment L1-L5 hypomobility PT-OP-K Range of Motion Start: 03/29/23 17:38 Freq: Status: Active Protocol: Document 03/29/23 14:45 DCW (Rec: 03/29/23 17:50 DCW [id number]) Lumbar Spine Range of Motion Lumbar Spine Active Degrees Testing Position Standing Flexion 75 Extension 10 Lateral Flexion Left 57 Lateral Flexion Right 61 ROM Limitations Bony Restriction Comments Lateral flexion measured in cm from fingertips to floor PT-OP-L Special Tests Start: 03/29/23 17:38 Freq: Status: Active Protocol: Document 03/29/23 14:45 DCW (Rec: 03/29/23 17:50 DCW [id number]) Special Tests Lumbar Spine Special Tests Vertical Spine Loading Test Results Increased pain with compression during left lateral flexion Straight Leg Raise Test Results Hamstring tightness at 50? bilaterally Standing Flexion Test Results Negative Slump Test Results Negative Manual Traction Test Results Negative Compression Test Results Negative A-P Shearing Test Results Negative PT-OP-M Strength Start: 03/29/23 17:38 Freq: Status: Active Protocol: Document 03/29/23 14:45 DCW (Rec: 03/30/23 16:10 DCW [id number]) Trunk Strength Trunk Manual Muscle Testing Core Stabilization Good core contraction, able to maintain abdominal bracing with double leg lift. PT-OP-Q Treatments Start: 03/29/23 17:38 Freq: Status: Active Protocol: Document 04/08/23 08:18 SP (Rec: 04/08/23 09:02 SP [id number]) Gym Equipment Therapeutic Ball Pelvic tilts/circles Exercise Details Pelvic tilts/circles/ march/ LAQ/LS rotation (GTB/Rolling stool) Ball Size/Color Green - 65 cm Body Position Sitting Reps/Duration x10 reps each Comments cued slow, elevated posturing, neutral spine Therapeutic Exercises Sitting Exercises foam rolling Sitting Exercise Name REviewed self rolling: glut, HS, ITB, quad Side bilateral Equipment Used foam roller, also lacross ball HS&glut Reps/Minutes 5 min total Comments occasional cues for trunk/ UE/ LE positioning, tolerance time/pressure Standing Exercises Pallof press Standing Exercise Name Pallof press Side bilateral Resistance Green TB (seated roll stool) Reps/Minutes x10 Other Exercises Child's pose Other Exercise Name reviewed a self stretch Reps/Minutes 30 x2 Comments cued not over pressure or to long irritate back has experienced in past. 1/2 kneel hip flexor stretch Other Exercise Name added to HEP Side bilateral Reps/Minutes 60 Comments cued reach OH and neutral pelvis. Good stretch reported Self-Care/Home Management Treatment Education Patient Education Body Mechanics,Home Exercise Program,Joint Protection,Pain Management,Posture,Safety Other Education Brief time spent on TA and mechanics during ADLs, landscaping and importance of core stabililzation for back health with balance of flexibility use of foam roller has and proper use. PT-OP-T Assessment and Plan Start: 03/29/23 17:38 Freq: Status: Active Protocol: Document 04/08/23 08:18 SP (Rec: 04/08/23 09:02 SP [id number]) Physical Therapy Assessment Goals Three Impairment Standing lumbar extension measured at 10? Extension Edger Goal (LTG) Pt to display an increase in active lumbar extension of at least 15? to 25? to demonstrate ability to participate in pain-free functional mobility LTG Duration 05/29/23 Two Impairment Pt experiences increased pain when standing bent over at his sink Usp Goal (LTG) Pt to report ability to stand and wash dishes for 30 minutes without increased back pain. LTG Duration 05/29/23 One Impairment Pt does not have an appropriate home exercise program Short Term Goal (STG) Pt to be independent and compliant with an appropriate HEP STG Duration 04/29/23 Assessment Summary Assessment Pt good feedback response to review self use of foam roller for decreased tightness BLEs. He no irritation in LS during added resisted LS rotation and revisit palloff press with no adverse affects. Will pay attention later day and home over weekend. Declined HO. Physical Therapy Plan Frequency and Duration Frequency of Treatment 2x/Week Plan of Care Start Date 03/29/23 Plan of Care End Date 05/29/23 Therapeutic Interventions Therapeutic Interventions Home Exercise Program,Joint Mobilizations,Manual Therapy, Neuromuscular Re-education, Patient/Caregiver Education, Self-Care/Home Management,Soft Tissue Mobilization, Therapeutic Activities, Therapeutic Exercises Modalities Cold Pack/Ice Massage,Electric Stimulation,Hot Packs, Ultrasound Next Visit Focus/Plan Next Note Type Treatment Note Next Visit Plan REcheck added foam roller/ self STMs, progressed tball/ core progression. 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 POC: Lumbar mobility, body mechanics training, STM
--- NOTE | 2023-04-08 09:02 | PT.OTN ---
Current Diagnoses Stiffness of right hip, not elsewhere classified (04/08/23) Stiffness of left hip, not elsewhere classified (04/08/23) Stiffness of other specified joint, not elsewhere classified (04/08/23) Low back pain, unspecified (04/08/23) Physical Therapy Treatment Note PT-OP-A Visit Information Start: 03/29/23 17:38 Freq: Status: Active Protocol: Document 04/08/23 08:18 SP (Rec: 04/08/23 09:02 SP [id number]) Out-Patient Physical Therapy Visit Information Visit Information Visit Type Treatment Note Visit Start Time 08:18 Visit Stop Time 09:00 Total Visit Minutes 42 Visit Number 4 Number of UNDERCOVER COP Visits 1 Evaluation Information Evaluation Date 03/29/23 PT-OP-B Current Condition Start: 03/29/23 17:38 Freq: Status: Active Protocol: Document 03/29/23 14:45 DCW (Rec: 03/29/23 17:47 DCW [id number]) Current Condition History of Current Condition Onset Date A few month history Current Complaints Low back pain and stiffness History of Current Condition Pt is a 33 year old male presenting with a 2-3 month history of low back pain and stiffness. 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 Upon return to work, pt was noticing that his back just wasn't feeling right, and reports unusual nerve sensations, but only in his back, not down his legs. Notes his pain might be a little better since it began, has been seeing a chiropractor, does a lot of foam roll and LE stretching. Pain seems to be worse with extended static standing, bending over his sink to do dishes, or lifting weight. 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 Doesn't have a tball to do at home. He reports has been engaging TA with activities as instructed to support back. PT-OP-F Manual Assessment Start: 03/29/23 17:38 Freq: Status: Active Protocol: Document 03/29/23 14:45 DCW (Rec: 03/30/23 16:10 DCW [id number]) Manual Assessments Soft Tissue Assessment Soft Tissue Mobility Assessment Lumbar paraspinals (L>R) moderate tone with tenderness to palpation 2/4: Pain with wincing Joint Mobility Assessment Joint Mobility Assessment L1-L5 hypomobility PT-OP-K Range of Motion Start: 03/29/23 17:38 Freq: Status: Active Protocol: Document 03/29/23 14:45 DCW (Rec: 03/29/23 17:50 DCW [id number]) Lumbar Spine Range of Motion Lumbar Spine Active Degrees Testing Position Standing Flexion 75 Extension 10 Lateral Flexion Left 57 Lateral Flexion Right 61 ROM Limitations Bony Restriction Comments Lateral flexion measured in cm from fingertips to floor PT-OP-L Special Tests Start: 03/29/23 17:38 Freq: Status: Active Protocol: Document 03/29/23 14:45 DCW (Rec: 03/29/23 17:50 DCW [id number]) Special Tests Lumbar Spine Special Tests Vertical Spine Loading Test Results Increased pain with compression during left lateral flexion Straight Leg Raise Test Results Hamstring tightness at 50? bilaterally Standing Flexion Test Results Negative Slump Test Results Negative Manual Traction Test Results Negative Compression Test Results Negative A-P Shearing Test Results Negative PT-OP-M Strength Start: 03/29/23 17:38 Freq: Status: Active Protocol: Document 03/29/23 14:45 DCW (Rec: 03/30/23 16:10 DCW [id number]) Trunk Strength Trunk Manual Muscle Testing Core Stabilization Good core contraction, able to maintain abdominal bracing with double leg lift. PT-OP-Q Treatments Start: 03/29/23 17:38 Freq: Status: Active Protocol: Document 04/08/23 08:18 SP (Rec: 04/08/23 09:02 SP [id number]) Gym Equipment Therapeutic Ball Pelvic tilts/circles Exercise Details Pelvic tilts/circles/ march/ LAQ/LS rotation (GTB/Rolling stool) Ball Size/Color Green - 65 cm Body Position Sitting Reps/Duration x10 reps each Comments cued slow, elevated posturing, neutral spine Therapeutic Exercises Sitting Exercises foam rolling Sitting Exercise Name REviewed self rolling: glut, HS, ITB, quad Side bilateral Equipment Used foam roller, also lacross ball HS&glut Reps/Minutes 5 min total Comments occasional cues for trunk/ UE/ LE positioning, tolerance time/pressure Standing Exercises Pallof press Standing Exercise Name Pallof press Side bilateral Resistance Green TB (seated roll stool) Reps/Minutes x10 Other Exercises Child's pose Other Exercise Name reviewed a self stretch Reps/Minutes 30 x2 Comments cued not over pressure or to long irritate back has experienced in past. 1/2 kneel hip flexor stretch Other Exercise Name added to HEP Side bilateral Reps/Minutes 60 Comments cued reach OH and neutral pelvis. Good stretch reported PT-OP-T Assessment and Plan Start: 03/29/23 17:38 Freq: Status: Active Protocol: Document 04/08/23 08:18 SP (Rec: 04/08/23 09:02 SP [id number]) Physical Therapy Assessment Goals Three Impairment Standing lumbar extension measured at 10? Chcf Goal (LTG) Pt to display an increase in active lumbar extension of at least 15? to 25? to demonstrate ability to participate in pain-free functional mobility LTG Duration 05/29/23 Two Impairment Pt experiences increased pain when standing bent over at his sink Chcf Goal (LTG) Pt to report ability to stand and wash dishes for 30 minutes without increased back pain. LTG Duration 05/29/23 One Impairment Pt does not have an appropriate home exercise program Short Term Goal (STG) Pt to be independent and compliant with an appropriate HEP STG Duration 04/29/23 Assessment Summary Assessment Pt good feedback response to use foam roller and stretching to incorporate at work for decreased tightness BLEs. He no irritation in LS during added LS rotation and revisit palloff press. Will pay attention later day and home over weekend. Physical Therapy Plan Frequency and Duration Frequency of Treatment 2x/Week Plan of Care Start Date 03/29/23 Plan of Care End Date 05/29/23 Therapeutic Interventions Therapeutic Interventions Home Exercise Program,Joint Mobilizations,Manual Therapy, Neuromuscular Re-education, Patient/Caregiver Education, Self-Care/Home Management,Soft Tissue Mobilization, Therapeutic Activities, Therapeutic Exercises Modalities Cold Pack/Ice Massage,Electric Stimulation,Hot Packs, Ultrasound Next Visit Focus/Plan Next Note Type Treatment Note Next Visit Plan Lumbar mobility, body mechanics training, STM
--- NOTE | 2023-04-11 08:15 | PT.OTN ---
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 Visit Start Time 07:34 Visit Stop Time 08:15 Total Visit Minutes 41 Visit Number [address] MECHANICAL ENGINEER Visits 2 Evaluation Information Evaluation Date 03/29/23 PT-OP-B Current Condition Start: 03/29/23 17:38 Freq: Status: Active Protocol: Document 03/29/23 14:45 DCW (Rec: 03/29/23 17:47 DCW [id number]) Current Condition History of Current Condition Onset Date A few month history Current Complaints Low back pain and stiffness History of Current Condition Pt is a 33 year old male presenting with a 2-3 month history of low back pain and stiffness. 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 Upon return to work, pt was noticing that his back just wasn't feeling right, and reports unusual nerve sensations, but only in his back, not down his legs. Notes his pain might be a little better since it began, has been seeing a chiropractor, does a lot of foam roll and LE stretching. Pain seems to be worse with extended static standing, bending over his sink to do dishes, or lifting weight. PT-OP-C Subjective Start: 03/29/23 17:38 Freq: Status: Active Protocol: Document 04/11/23 07:34 SP (Rec: 04/11/23 08:19 SP [id number]) OP-PT Subjective Patient Comments Patient Comments Pt reports achiness across back. He felt much more mobile after last tx. Feels firey through his L piriformis. PT-OP-F Manual Assessment Start: 03/29/23 17:38 Freq: Status: Active Protocol: Document 03/29/23 14:45 DCW (Rec: 03/30/23 16:10 DCW [id number]) Manual Assessments Soft Tissue Assessment Soft Tissue Mobility Assessment Lumbar paraspinals (L>R) moderate tone with tenderness to palpation 2/4: Pain with wincing Joint Mobility Assessment Joint Mobility Assessment L1-L5 hypomobility PT-OP-K Range of Motion Start: 03/29/23 17:38 Freq: Status: Active Protocol: Document 03/29/23 14:45 DCW (Rec: 03/29/23 17:50 DCW [id number]) Lumbar Spine Range of Motion Lumbar Spine Active Degrees Testing Position Standing Flexion 75 Extension 10 Lateral Flexion Left 57 Lateral Flexion Right 61 ROM Limitations Bony Restriction Comments Lateral flexion measured in cm from fingertips to floor PT-OP-L Special Tests Start: 03/29/23 17:38 Freq: Status: Active Protocol: Document 03/29/23 14:45 DCW (Rec: 03/29/23 17:50 DCW [id number]) Special Tests Lumbar Spine Special Tests Vertical Spine Loading Test Results Increased pain with compression during left lateral flexion Straight Leg Raise Test Results Hamstring tightness at 50? bilaterally Standing Flexion Test Results Negative Slump Test Results Negative Manual Traction Test Results Negative Compression Test Results Negative A-P Shearing Test Results Negative PT-OP-M Strength Start: 03/29/23 17:38 Freq: Status: Active Protocol: Document 03/29/23 14:45 DCW (Rec: 03/30/23 16:10 DCW [id number]) Trunk Strength Trunk Manual Muscle Testing Core Stabilization Good core contraction, able to maintain abdominal bracing with double leg lift. PT-OP-Q Treatments Start: 03/29/23 17:38 Freq: Status: Active Protocol: Document 04/11/23 07:34 SP (Rec: 04/11/23 08:19 SP [id number]) Gym Equipment Therapeutic Ball Pelvic tilts/circles Exercise Details pelvic tilts, pallof press, lumbar rotation Ball Size/Color silver ball - 85 cm Body Position Sitting Reps/Duration 10 each Comments green band, good form Therapeutic Exercises Supine Exercises vinod stretch Side bilateral Equipment Used strap, rolled towel at low back Reps/Minutes 1 min Comments cued where to feel stretch and how to use strap bug Equipment Used rolled towel at low back Reps/Minutes 8 Comments tactial cues to hold proper form, started to feel heat in left glute Prone Exercises press up Prone Exercise Name added to HEP Reps/Minutes 20 sec hold x 4 Comments with cued breath, no pain or discomfort Other Exercises 1/2 kneel hip flexor stretch Other Exercise Name reviewed HEP - incorporated at work Side bilateral Reps/Minutes 60 Comments cued reach OH and neutral pelvis. Good stretch reported Manual Therapy Treatment Soft Tissue Mobilization Hip Body Location hip external rotators Mobilization Type Rolling,Sustained Pressure, Other Body Position Prone Comments manual STMs and MWM hip IR/ER while providing ed verbal review self mobilization over ball/foam roller. Lumbar Paraspinals Body Location ES, QL Mobilization Type Strumming,Sustained Pressure Intensity/Depth Moderate Body Position Prone Joint Mobilizations Lumbar Joint L1-5 Direction P-A Grade II Body Position Prone PT-OP-T Assessment and Plan Start: 03/29/23 17:38 Freq: Status: Active Protocol: Document 04/11/23 07:34 SP (Rec: 04/11/23 08:19 SP [id number]) Physical Therapy Assessment Goals Three Impairment Standing lumbar extension measured at 10? Legal Entity Controller Goal (LTG) Pt to display an increase in active lumbar extension of at least 15? to 25? to demonstrate ability to participate in pain-free functional mobility LTG Duration 05/29/23 Two Impairment Pt experiences increased pain when standing bent over at his sink Legal Entity Controller Goal (LTG) Pt to report ability to stand and wash dishes for 30 minutes without increased back pain. LTG Duration 05/29/23 One Impairment Pt does not have an appropriate home exercise program Short Term Goal (STG) Pt to be independent and compliant with an appropriate HEP STG Duration 04/29/23 Assessment Summary Assessment Pt reported less tightness over hip flexors and low back post stretching and manual to back and hip external rotators this tx. Initiated prone press up with breath, initial little reported stress on LS improved mobility without discomfort with rep progression. Pt good core effort support with initiated bug and review of resisted tball. Pt will be acquiring tball for home later today. Physical Therapy Plan Frequency and Duration Frequency of Treatment 2x/Week Plan of Care Start Date 03/29/23 Plan of Care End Date 05/29/23 Therapeutic Interventions Therapeutic Interventions Home Exercise Program,Joint Mobilizations,Manual Therapy, Neuromuscular Re-education, Patient/Caregiver Education, Self-Care/Home Management,Soft Tissue Mobilization, Therapeutic Activities, Therapeutic Exercises Modalities Cold Pack/Ice Massage,Electric Stimulation,Hot Packs, Ultrasound Next Visit Focus/Plan Next Note Type Treatment Note Next Visit Plan REcheck vinod stretch, prone press up, bug. Add HS/ITB /ADD/Pirfor stretch. STMs Psoas. 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 POC: Lumbar mobility, body mechanics training, STM
--- NOTE | 2023-04-18 09:00 | PT.OTN ---
Current Diagnoses Stiffness of right hip, not elsewhere classified (04/18/23) Stiffness of left hip, not elsewhere classified (04/18/23) Stiffness of other specified joint, not elsewhere classified (04/18/23) Low back pain, unspecified (04/18/23) Physical Therapy Treatment Note PT-OP-A Visit Information Start: 03/29/23 17:38 Freq: Status: Active Protocol: Document 04/18/23 08:18 SP (Rec: 04/18/23 09:30 SP [id number]) Out-Patient Physical Therapy Visit Information Visit Information Visit Type Treatment Note Visit Note CHAVA England provided instruction to pt of ther ex while under direct supervision and instruction of HYDRAULIC SPINNER Jaymie. Visit Start Time 08:18 Visit Stop Time 09:00 Total Visit Minutes 42 Visit Number 6 Number of HYDRAULIC SPINNER Visits 3 Evaluation Information Evaluation Date 03/29/23 PT-OP-B Current Condition Start: 03/29/23 17:38 Freq: Status: Active Protocol: Document 03/29/23 14:45 DCW (Rec: 03/29/23 17:47 DCW [id number]) Current Condition History of Current Condition Onset Date A few month history Current Complaints Low back pain and stiffness History of Current Condition Pt is a 33 year old male presenting with a 2-3 month history of low back pain and stiffness. 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 Upon return to work, pt was noticing that his back just wasn't feeling right, and reports unusual nerve sensations, but only in his back, not down his legs. Notes his pain might be a little better since it began, has been seeing a chiropractor, does a lot of foam roll and LE stretching. Pain seems to be worse with extended static standing, bending over his sink to do dishes, or lifting weight. PT-OP-C Subjective Start: 03/29/23 17:38 Freq: Status: Active Protocol: Document 04/18/23 08:18 SP (Rec: 04/18/23 09:30 SP [id number]) OP-PT Subjective Patient Comments Patient Comments Pt reports stiffness from sitting in the car for 7+ hours, stated was busy over weekend and didn't perform stretches but feels confident. PT-OP-F Manual Assessment Start: 03/29/23 17:38 Freq: Status: Active Protocol: Document 03/29/23 14:45 DCW (Rec: 03/30/23 16:10 DCW [id number]) Manual Assessments Soft Tissue Assessment Soft Tissue Mobility Assessment Lumbar paraspinals (L>R) moderate tone with tenderness to palpation 2/4: Pain with wincing Joint Mobility Assessment Joint Mobility Assessment L1-L5 hypomobility PT-OP-K Range of Motion Start: 03/29/23 17:38 Freq: Status: Active Protocol: Document 03/29/23 14:45 DCW (Rec: 03/29/23 17:50 DCW [id number]) Lumbar Spine Range of Motion Lumbar Spine Active Degrees Testing Position Standing Flexion 75 Extension 10 Lateral Flexion Left 57 Lateral Flexion Right 61 ROM Limitations Bony Restriction Comments Lateral flexion measured in cm from fingertips to floor PT-OP-L Special Tests Start: 03/29/23 17:38 Freq: Status: Active Protocol: Document 03/29/23 14:45 DCW (Rec: 03/29/23 17:50 DCW [id number]) Special Tests Lumbar Spine Special Tests Vertical Spine Loading Test Results Increased pain with compression during left lateral flexion Straight Leg Raise Test Results Hamstring tightness at 50? bilaterally Standing Flexion Test Results Negative Slump Test Results Negative Manual Traction Test Results Negative Compression Test Results Negative A-P Shearing Test Results Negative PT-OP-M Strength Start: 03/29/23 17:38 Freq: Status: Active Protocol: Document 03/29/23 14:45 DCW (Rec: 03/30/23 16:10 DCW [id number]) Trunk Strength Trunk Manual Muscle Testing Core Stabilization Good core contraction, able to maintain abdominal bracing with double leg lift. PT-OP-Q Treatments Start: 03/29/23 17:38 Freq: Status: Active Protocol: Document 04/18/23 08:18 SP (Rec: 04/18/23 09:30 SP [id number]) Therapeutic Exercises Supine Exercises sciatic nerve glide Supine Exercise Name Siatic nerve glide Side bilateral Comments instructed hold LAQ with cervical flexion/extension combined with PF/DF bug Equipment Used rolled towel at low back Reps/Minutes 8 Comments tactial cues to hold proper form, started to feel heat in left glute Piriformis Supine Exercise Name Piriformis stretch, prone pigeon pose (self HEP) Side bilateral Equipment Used Opposite knee to shoulder Reps/Minutes 2 min total Comments good form Prone Exercises press up Prone Exercise Name reviewed HEP Reps/Minutes 20 sec hold x 4 Comments with cued breath, no pain or discomfort Sitting Exercises foam rolling Sitting Exercise Name REviewed self rolling: glut, HS, ITB, quad, LS/TS, instructed bilateral/pec Side bilateral Equipment Used foam roller, also lacross ball HS&glut Reps/Minutes 5 min total Comments occasional cues for trunk/ UE/ LE positioning, tolerance time/pressure Standing Exercises dynamic lunges Standing Exercise Name lunge steps, set with trunk horizontal/oblique rotation Reps/Minutes 3 laps x 15 ft Comments cued for stride width to maintain balance; cued neutral pel core engagement Other Exercises 1/2 kneel hip flexor stretch Other Exercise Name reviewed HEP - incorporated at work Side bilateral Reps/Minutes 60 Comments cued reach OH and neutral pelvis. Good stretch reported Manual Therapy Treatment Joint Mobilizations Hip Joint Hip Direction P-A Grade II Body Position Prone Comments L>R manual w/ instruction under seld application. 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 Cues for straight back/PPT/TA with hip hinge squat/1/2 kneel for spinal stabilization support. Good demonstration post cuing. Utilized crate and 20# DBs. PT-OP-T Assessment and Plan Start: 03/29/23 17:38 Freq: Status: Active Protocol: Document 04/18/23 08:18 SP (Rec: 04/18/23 09:30 SP [id number]) Physical Therapy Assessment Goals Three Impairment Standing lumbar extension measured at 10? Fdc Goal (LTG) Pt to display an increase in active lumbar extension of at least 15? to 25? to demonstrate ability to participate in pain-free functional mobility LTG Duration 05/29/23 Two Impairment Pt experiences increased pain when standing bent over at his sink Fdc Goal (LTG) Pt to report ability to stand and wash dishes for 30 minutes without increased back pain. LTG Duration 05/29/23 One Impairment Pt does not have an appropriate home exercise program Short Term Goal (STG) Pt to be independent and compliant with an appropriate HEP 04/18/23: reviewed bug, stretching/foam rolling, stretching, added dynamic lunges, sciatic nerve glide, self hip mob. STG Duration 04/29/23 updated 04/18/23 Assessment Summary Assessment Pt good recall to HEP, curing required for JUANA wider to maintain balance with added walking lunges, hip hinge w/ wt close to body, pivot turns and core facilitation during lifting body mechanics to support spinal stabilliztaion. Physical Therapy Plan Frequency and Duration Frequency of Treatment 2x/Week Plan of Care Start Date 03/29/23 Plan of Care End Date 05/29/23
--- NOTE | 2023-04-27 16:29 | PT.OTN ---
Current Diagnoses Stiffness of right hip, not elsewhere classified (04/27/23) Stiffness of left hip, not elsewhere classified (04/27/23) Stiffness of other specified joint, not elsewhere classified (04/27/23) Low back pain, unspecified (04/27/23) Physical Therapy Treatment Note PT-OP-A Visit Information Start: 03/29/23 17:38 Freq: Status: Active Protocol: Document 04/27/23 15:45 DCW (Rec: 04/27/23 16:29 DCW [id number]) Out-Patient Physical Therapy Visit Information Visit Information Visit Type Treatment Note Visit Start Time 15:45 Visit Stop Time 16:30 Total Visit Minutes 45 Visit Number 7 Number of BUSINESS CONTINUITY PLANNING DIRECTOR Visits 0 Evaluation Information Evaluation Date 03/29/23 PT-OP-B Current Condition Start: 03/29/23 17:38 Freq: Status: Active Protocol: Document 03/29/23 14:45 DCW (Rec: 03/29/23 17:47 DCW [id number]) Current Condition History of Current Condition Onset Date A few month history Current Complaints Low back pain and stiffness History of Current Condition Pt is a 33 year old male presenting with a 2-3 month history of low back pain and stiffness. 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 Upon return to work, pt was noticing that his back just wasn't feeling right, and reports unusual nerve sensations, but only in his back, not down his legs. Notes his pain might be a little better since it began, has been seeing a chiropractor, does a lot of foam roll and LE stretching. Pain seems to be worse with extended static standing, bending over his sink to do dishes, or lifting weight. PT-OP-C Subjective Start: 03/29/23 17:38 Freq: Status: Active Protocol: Document 04/27/23 15:45 DCW (Rec: 04/27/23 16:29 DCW [id number]) OP-PT Subjective Patient Comments Patient Comments It was getting better for a while, there were a few days that it wasn't bothering me at all, but I think maybe I stopped stretching as much, and it's not quite as good any more. PT-OP-F Manual Assessment Start: 03/29/23 17:38 Freq: Status: Active Protocol: Document 03/29/23 14:45 DCW (Rec: 03/30/23 16:10 DCW [id number]) Manual Assessments Soft Tissue Assessment Soft Tissue Mobility Assessment Lumbar paraspinals (L>R) moderate tone with tenderness to palpation 2/4: Pain with wincing Joint Mobility Assessment Joint Mobility Assessment L1-L5 hypomobility PT-OP-K Range of Motion Start: 03/29/23 17:38 Freq: Status: Active Protocol: Document 03/29/23 14:45 DCW (Rec: 03/29/23 17:50 DCW [id number]) Lumbar Spine Range of Motion Lumbar Spine Active Degrees Testing Position Standing Flexion 75 Extension 10 Lateral Flexion Left 57 Lateral Flexion Right 61 ROM Limitations Bony Restriction Comments Lateral flexion measured in cm from fingertips to floor PT-OP-L Special Tests Start: 03/29/23 17:38 Freq: Status: Active Protocol: Document 03/29/23 14:45 DCW (Rec: 03/29/23 17:50 DCW [id number]) Special Tests Lumbar Spine Special Tests Vertical Spine Loading Test Results Increased pain with compression during left lateral flexion Straight Leg Raise Test Results Hamstring tightness at 50? bilaterally Standing Flexion Test Results Negative Slump Test Results Negative Manual Traction Test Results Negative Compression Test Results Negative A-P Shearing Test Results Negative PT-OP-M Strength Start: 03/29/23 17:38 Freq: Status: Active Protocol: Document 03/29/23 14:45 DCW (Rec: 03/30/23 16:10 DCW [id number]) Trunk Strength Trunk Manual Muscle Testing Core Stabilization Good core contraction, able to maintain abdominal bracing with double leg lift. PT-OP-Q Treatments Start: 03/29/23 17:38 Freq: Status: Active Protocol: Document 04/27/23 15:45 DCW (Rec: 04/27/23 16:29 DCW [id number]) Gym Equipment Therapeutic Ball Pelvic tilts/circles Exercise Details pelvic tilts Ball Size/Color silver ball - 85 cm Body Position Sitting Reps/Duration 10 each Comments green band, good form Therapeutic Exercises Standing Exercises Hip Extension Standing Exercise Name Hip Extension Side bilateral Resistance Blue Other Exercises Resisted Ambulation Other Exercise Name Resisted side-stepping Resistance Blue Manual Therapy Treatment Soft Tissue Mobilization Hip Body Location hip external rotators Mobilization Type Rolling,Sustained Pressure, Other Body Position Prone Lumbar Paraspinals Body Location ES, QL Mobilization Type Strumming,Sustained Pressure Intensity/Depth Moderate Body Position Prone Joint Mobilizations Lumbar Joint L1-5 Direction P-A Grade II Body Position Prone Manual Traction Lower Extremity Details Short-axis B LE traction Body Position Hooklying PT-OP-T Assessment and Plan Start: 03/29/23 17:38 Freq: Status: Active Protocol: Document 04/27/23 15:45 DCW (Rec: 04/27/23 16:29 DCW [id number]) Physical Therapy Assessment Goals Three Impairment Standing lumbar extension measured at 10? Mcc Goal (LTG) Pt to display an increase in active lumbar extension of at least 15? to 25? to demonstrate ability to participate in pain-free functional mobility LTG Duration 05/29/23 Two Impairment Pt experiences increased pain when standing bent over at his sink Hat Stock Laminating Machine Operator Goal (LTG) Pt to report ability to stand and wash dishes for 30 minutes without increased back pain. LTG Duration 05/29/23 One Impairment Pt does not have an appropriate home exercise program Short Term Goal (STG) Pt to be independent and compliant with an appropriate HEP 04/18/23: reviewed bug, stretching/foam rolling, stretching, added dynamic lunges, sciatic nerve glide, self hip mob. STG Duration 04/29/23 updated 04/18/23 Assessment Summary Assessment Pt doing fairly well with HEP, does admit that he occasionally doesn't have time to do it all before leaving for work. Showing good progress with paraspinal tone and vertebral mobility. Recommend continuing current HEP with addition of new hip strengthening exercises. Physical Therapy Plan Frequency and Duration Frequency of Treatment 2x/Week Plan of Care Start Date 03/29/23 Plan of Care End Date 05/29/23 Therapeutic Interventions Therapeutic Interventions Home Exercise Program,Joint Mobilizations,Manual Therapy, Neuromuscular Re-education, Patient/Caregiver Education, Self-Care/Home Management,Soft Tissue Mobilization, Therapeutic Activities, Therapeutic Exercises Modalities Cold Pack/Ice Massage,Electric Stimulation,Hot Packs, Ultrasound Next Visit Focus/Plan Next Note Type Treatment Note Next Visit Plan Recheck vinod stretch, prone press up, bug. Add HS/ITB /ADD/Pirfor stretch. STMs Psoas. 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 POC: Lumbar mobility, body mechanics training, STM
--- NOTE | 2023-04-29 16:54 | PT.OTN ---
Current Diagnoses Stiffness of right hip, not elsewhere classified (04/29/23) Stiffness of left hip, not elsewhere classified (04/29/23) Stiffness of other specified joint, not elsewhere classified (04/29/23) Low back pain, unspecified (04/29/23) Physical Therapy Treatment Note PT-OP-A Visit Information Start: 03/29/23 17:38 Freq: Status: Active Protocol: Document 04/29/23 16:00 DCW (Rec: 04/29/23 16:54 DCW [id number]) Out-Patient Physical Therapy Visit Information Visit Information Visit Type Treatment Note Visit Start Time 16:00 Visit Stop Time 16:45 Total Visit Minutes 45 Visit Number 8 Number of CARDING MACHINE OPERATOR Visits 0 Evaluation Information Evaluation Date 03/29/23 PT-OP-B Current Condition Start: 03/29/23 17:38 Freq: Status: Active Protocol: Document 03/29/23 14:45 DCW (Rec: 03/29/23 17:47 DCW [id number]) Current Condition History of Current Condition Onset Date A few month history Current Complaints Low back pain and stiffness History of Current Condition Pt is a 33 year old male presenting with a 2-3 month history of low back pain and stiffness. 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 Upon return to work, pt was noticing that his back just wasn't feeling right, and reports unusual nerve sensations, but only in his back, not down his legs. Notes his pain might be a little better since it began, has been seeing a chiropractor, does a lot of foam roll and LE stretching. Pain seems to be worse with extended static standing, bending over his sink to do dishes, or lifting weight. 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 PT-OP-F Manual Assessment Start: 03/29/23 17:38 Freq: Status: Active Protocol: Document 03/29/23 14:45 DCW (Rec: 03/30/23 16:10 DCW [id number]) Manual Assessments Soft Tissue Assessment Soft Tissue Mobility Assessment Lumbar paraspinals (L>R) moderate tone with tenderness to palpation 2/4: Pain with wincing Joint Mobility Assessment Joint Mobility Assessment L1-L5 hypomobility PT-OP-K Range of Motion Start: 03/29/23 17:38 Freq: Status: Active Protocol: Document 03/29/23 14:45 DCW (Rec: 03/29/23 17:50 DCW [id number]) Lumbar Spine Range of Motion Lumbar Spine Active Degrees Testing Position Standing Flexion 75 Extension 10 Lateral Flexion Left 57 Lateral Flexion Right 61 ROM Limitations Bony Restriction Comments Lateral flexion measured in cm from fingertips to floor PT-OP-L Special Tests Start: 03/29/23 17:38 Freq: Status: Active Protocol: Document 03/29/23 14:45 DCW (Rec: 03/29/23 17:50 DCW [id number]) Special Tests Lumbar Spine Special Tests Vertical Spine Loading Test Results Increased pain with compression during left lateral flexion Straight Leg Raise Test Results Hamstring tightness at 50? bilaterally Standing Flexion Test Results Negative Slump Test Results Negative Manual Traction Test Results Negative Compression Test Results Negative A-P Shearing Test Results Negative PT-OP-M Strength Start: 03/29/23 17:38 Freq: Status: Active Protocol: Document 03/29/23 14:45 DCW (Rec: 03/30/23 16:10 DCW [id number]) Trunk Strength Trunk Manual Muscle Testing Core Stabilization Good core contraction, able to maintain abdominal bracing with double leg lift. PT-OP-Q Treatments Start: 03/29/23 17:38 Freq: Status: Active Protocol: Document 04/29/23 16:00 DCW (Rec: 04/29/23 16:54 DCW [id number]) Gym Equipment Shuttle Balance Red Comments WBOS Staggered weight shift Lateral weight shift Therapeutic Exercises Sidelying Exercises Reverse Clamshell Sidelying Exercise Name Reverse Clamshell Side bilateral Resistance Green Clamshell Sidelying Exercise Name Clamshell Side bilateral Resistance Green Other Exercises BOSU Lunge Other Exercise Name BOSU Lunge Side bilateral Equipment Used Blue JUANAU Reps/Minutes x15 each Manual Therapy Treatment Soft Tissue Mobilization Hip Body Location hip external rotators Mobilization Type Rolling,Sustained Pressure, Other Body Position Prone Lumbar Paraspinals Body Location ES, QL Mobilization Type Strumming,Sustained Pressure Intensity/Depth Moderate Body Position Prone Joint Mobilizations Lumbar Joint L1-5 Direction P-A Grade II Body Position Prone Manual Traction Lower Extremity Details Short-axis B LE traction Body Position Hooklying PT-OP-T Assessment and Plan Start: 03/29/23 17:38 Freq: Status: Active Protocol: Document 04/29/23 16:00 DCW (Rec: 04/29/23 16:54 DCW [id number]) Physical Therapy Assessment Goals Three Impairment Standing lumbar extension measured at 10? Radiographic Technologist Goal (LTG) Pt to display an increase in active lumbar extension of at least 15? to 25? to demonstrate ability to participate in pain-free functional mobility LTG Duration 05/29/23 Two Impairment Pt experiences increased pain when standing bent over at his sink Radiographic Technologist Goal (LTG) Pt to report ability to stand and wash dishes for 30 minutes without increased back pain. LTG Duration 05/29/23 One Impairment Pt does not have an appropriate home exercise program Short Term Goal (STG) Pt to be independent and compliant with an appropriate HEP 04/18/23: reviewed bug, stretching/foam rolling, stretching, added dynamic lunges, sciatic nerve glide, self hip mob. STG Duration 04/29/23 updated 04/18/23 Assessment Summary Assessment Noted significant improvement by end of session, showing good progress with HEP stretching and strengthening, happy with recent improvements Physical Therapy Plan Frequency and Duration Frequency of Treatment 2x/Week Plan of Care Start Date 03/29/23 Plan of Care End Date 05/29/23 Therapeutic Interventions Therapeutic Interventions Home Exercise Program,Joint Mobilizations,Manual Therapy, Neuromuscular Re-education, Patient/Caregiver Education, Self-Care/Home Management,Soft Tissue Mobilization, Therapeutic Activities, Therapeutic Exercises Modalities Cold Pack/Ice Massage,Electric Stimulation,Hot Packs, Ultrasound Next Visit Focus/Plan Next Note Type Treatment Note Next Visit Plan Recheck vinod stretch, prone press up, bug. Add HS/ITB /ADD/Pirfor stretch. STMs Psoas. 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 POC: Lumbar mobility, body mechanics training, STM
--- NOTE | 2023-05-06 16:00 | PT.OTN ---
Current Diagnoses Stiffness of right hip, not elsewhere classified (05/06/23) Stiffness of left hip, not elsewhere classified (05/06/23) Stiffness of other specified joint, not elsewhere classified (05/06/23) Low back pain, unspecified (05/06/23) Physical Therapy Treatment Note PT-OP-A Visit Information Start: 03/29/23 17:38 Freq: Status: Active Protocol: Document 05/06/23 15:16 DCW (Rec: 05/06/23 16:00 DCW [id number]) Out-Patient Physical Therapy Visit Information Visit Information Visit Type Treatment Note Visit Start Time 15:16 Visit Stop Time 16:00 Total Visit Minutes 44 Visit Number 9 Number of CUTTER INSPECTOR Visits 0 Evaluation Information Evaluation Date 03/29/23 PT-OP-B Current Condition Start: 03/29/23 17:38 Freq: Status: Active Protocol: Document 03/29/23 14:45 DCW (Rec: 03/29/23 17:47 DCW [id number]) Current Condition History of Current Condition Onset Date A few month history Current Complaints Low back pain and stiffness History of Current Condition Pt is a 33 year old male presenting with a 2-3 month history of low back pain and stiffness. 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 Upon return to work, pt was noticing that his back just wasn't feeling right, and reports unusual nerve sensations, but only in his back, not down his legs. Notes his pain might be a little better since it began, has been seeing a chiropractor, does a lot of foam roll and LE stretching. Pain seems to be worse with extended static standing, bending over his sink to do dishes, or lifting weight. PT-OP-C Subjective Start: 03/29/23 17:38 Freq: Status: Active Protocol: Document 05/06/23 15:16 DCW (Rec: 05/06/23 16:00 DCW [id number]) OP-PT Subjective Patient Comments Patient Comments Feeling better overall, having multiple days without pain, but admits that his was trying to do the Pallof press and it caused some increased back pain. PT-OP-F Manual Assessment Start: 03/29/23 17:38 Freq: Status: Active Protocol: Document 03/29/23 14:45 DCW (Rec: 03/30/23 16:10 DCW [id number]) Manual Assessments Soft Tissue Assessment Soft Tissue Mobility Assessment Lumbar paraspinals (L>R) moderate tone with tenderness to palpation 2/4: Pain with wincing Joint Mobility Assessment Joint Mobility Assessment L1-L5 hypomobility PT-OP-K Range of Motion Start: 03/29/23 17:38 Freq: Status: Active Protocol: Document 03/29/23 14:45 DCW (Rec: 03/29/23 17:50 DCW [id number]) Lumbar Spine Range of Motion Lumbar Spine Active Degrees Testing Position Standing Flexion 75 Extension 10 Lateral Flexion Left 57 Lateral Flexion Right 61 ROM Limitations Bony Restriction Comments Lateral flexion measured in cm from fingertips to floor PT-OP-L Special Tests Start: 03/29/23 17:38 Freq: Status: Active Protocol: Document 03/29/23 14:45 DCW (Rec: 03/29/23 17:50 DCW [id number]) Special Tests Lumbar Spine Special Tests Vertical Spine Loading Test Results Increased pain with compression during left lateral flexion Straight Leg Raise Test Results Hamstring tightness at 50? bilaterally Standing Flexion Test Results Negative Slump Test Results Negative Manual Traction Test Results Negative Compression Test Results Negative A-P Shearing Test Results Negative PT-OP-M Strength Start: 03/29/23 17:38 Freq: Status: Active Protocol: Document 03/29/23 14:45 DCW (Rec: 03/30/23 16:10 DCW [id number]) Trunk Strength Trunk Manual Muscle Testing Core Stabilization Good core contraction, able to maintain abdominal bracing with double leg lift. PT-OP-Q Treatments Start: 03/29/23 17:38 Freq: Status: Active Protocol: Document 05/06/23 15:16 DCW (Rec: 05/06/23 16:00 DCW [id number]) Gym Equipment Shuttle Balance Red Comments Staggered weight shift Lateral weight shift Therapeutic Exercises Supine Exercises Hamstring stretch Supine Exercise Name HS stretch Side bilateral Piriformis Supine Exercise Name Piriformis stretch Side bilateral Equipment Used Opposite knee to shoulder Reps/Minutes 2 min total Comments good form Other Exercises BOSU Lunge Other Exercise Name WU Tesfaye Side bilateral Equipment Used Blue WU Reps/Minutes x15 each Manual Therapy Treatment Soft Tissue Mobilization Hip Body Location hip external rotators Mobilization Type Rolling,Sustained Pressure, Other Body Position Prone Lumbar Paraspinals Body Location ES, QL Mobilization Type Strumming,Sustained Pressure Intensity/Depth Moderate Body Position Prone Joint Mobilizations Lumbar Joint L1-5 Direction P-A Grade II Body Position Prone PT-OP-T Assessment and Plan Start: 03/29/23 17:38 Freq: Status: Active Protocol: Document 05/06/23 15:16 DCW (Rec: 05/06/23 16:00 DCW [id number]) Physical Therapy Assessment Goals Three Impairment Standing lumbar extension measured at 10? Survey And Mapping Technician Goal (LTG) Pt to display an increase in active lumbar extension of at least 15? to 25? to demonstrate ability to participate in pain-free functional mobility LTG Duration 05/29/23 Two Impairment Pt experiences increased pain when standing bent over at his sink Custodial Goal (LTG) Pt to report ability to stand and wash dishes for 30 minutes without increased back pain. LTG Duration 05/29/23 One Impairment Pt does not have an appropriate home exercise program Short Term Goal (STG) Pt to be independent and compliant with an appropriate HEP 04/18/23: reviewed bug, stretching/foam rolling, stretching, added dynamic lunges, sciatic nerve glide, self hip mob. STG Duration 04/29/23 updated 04/18/23 Assessment Summary Assessment Pt continues to show good improvement with lumbar mobility, decreased paraspinal tone. Doing well with HEP compliance. Physical Therapy Plan Frequency and Duration Frequency of Treatment 2x/Week Plan of Care Start Date 03/29/23 Plan of Care End Date 05/29/23 Therapeutic Interventions Therapeutic Interventions Home Exercise Program,Joint Mobilizations,Manual Therapy, Neuromuscular Re-education, Patient/Caregiver Education, Self-Care/Home Management,Soft Tissue Mobilization, Therapeutic Activities, Therapeutic Exercises Modalities Cold Pack/Ice Massage,Electric Stimulation,Hot Packs, Ultrasound Next Visit Focus/Plan Next Note Type Treatment Note Next Visit Plan Recheck vinod stretch, prone press up, bug. Add HS/ITB /ADD/Pirfor stretch. STMs Psoas. 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 POC: Lumbar mobility, body mechanics training, STM
--- NOTE | 2023-12-12 16:36 | PT.OPDS ---
Current Diagnoses Stiffness of right hip, not elsewhere classified (05/06/23) Stiffness of left hip, not elsewhere classified (05/06/23) Stiffness of other specified joint, not elsewhere classified (05/06/23) Low back pain, unspecified (05/06/23) Visit Care Team Role Provider Type Ruel Best DO Attending Provider Physician Family Provider Primary Care Provider Referring Provider Specialty: [facility] Practice Address: [address] [place] [address], [facility] Email: [email or web address] Visit Number Visit Number 9 Discharge Summary PT-OP-B Current Condition Start: 03/29/23 17:38 Freq: Status: Active Protocol: Document 03/29/23 14:45 DCW (Rec: 03/29/23 17:47 DCW [id number]) Current Condition History of Current Condition Onset Date A few month history Current Complaints Low back pain and stiffness History of Current Condition Pt is a 33 year old male presenting with a 2-3 month history of low back pain and stiffness. 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 Upon return to work, pt was noticing that his back just wasn't feeling right, and reports unusual nerve sensations, but only in his back, not down his legs. Notes his pain might be a little better since it began, has been seeing a chiropractor, does a lot of foam roll and LE stretching. Pain seems to be worse with extended static standing, bending over his sink to do dishes, or lifting weight. PT-OP-C Subjective Start: 03/29/23 17:38 Freq: Status: Active Protocol: Document 05/06/23 15:16 DCW (Rec: 05/06/23 16:00 DCW [id number]) OP-PT Subjective Patient Comments Patient Comments Feeling better overall, having multiple days without pain, but admits that his was trying to do the Pallof press and it caused some increased back pain. PT-OP-F Manual Assessment Start: 03/29/23 17:38 Freq: Status: Active Protocol: Document 03/29/23 14:45 DCW (Rec: 03/30/23 16:10 DCW [id number]) Manual Assessments Soft Tissue Assessment Soft Tissue Mobility Assessment Lumbar paraspinals (L>R) moderate tone with tenderness to palpation 2/4: Pain with wincing Joint Mobility Assessment Joint Mobility Assessment L1-L5 hypomobility PT-OP-K Range of Motion Start: 03/29/23 17:38 Freq: Status: Active Protocol: Document 03/29/23 14:45 DCW (Rec: 03/29/23 17:50 DCW [id number]) Lumbar Spine Range of Motion Lumbar Spine Active Degrees Testing Position Standing Flexion 75 Extension 10 Lateral Flexion Left 57 Lateral Flexion Right 61 ROM Limitations Bony Restriction Comments Lateral flexion measured in cm from fingertips to floor PT-OP-L Special Tests Start: 03/29/23 17:38 Freq: Status: Active Protocol: Document 03/29/23 14:45 DCW (Rec: 03/29/23 17:50 DCW [id number]) Special Tests Lumbar Spine Special Tests Vertical Spine Loading Test Results Increased pain with compression during left lateral flexion Straight Leg Raise Test Results Hamstring tightness at 50? bilaterally Standing Flexion Test Results Negative Slump Test Results Negative Manual Traction Test Results Negative Compression Test Results Negative A-P Shearing Test Results Negative PT-OP-M Strength Start: 03/29/23 17:38 Freq: Status: Active Protocol: Document 03/29/23 14:45 DCW (Rec: 03/30/23 16:10 DCW [id number]) Trunk Strength Trunk Manual Muscle Testing Core Stabilization Good core contraction, able to maintain abdominal bracing with double leg lift. PT-OP-T Assessment and Plan Start: 03/29/23 17:38 Freq: Status: Active Protocol: Document 12/12/23 16:35 DCW (Rec: 12/12/23 16:36 DCW [id number]) Physical Therapy Assessment Assessment Summary Assessment Pt no-showed to last scheduled visit, and has now not been seen in more than seven months . Pt has no further follow-up visits scheduled. Pt will be discharged from skilled therapy at this time, will require a new referral in order to return in the future. Physical Therapy Plan Discharge Physical Therapy Discharge Reasons No Longer Attending PT
== END 2023-12-14 10:36 | disposition home or self-care (01) ==
LOC: PHYS 15:15
PROVIDERS: Family Provider Family Medicine; PCP Family Medicine; Referring Provider Family Medicine; Visit Provider Family Medicine
DX: M54.50 Low back pain, unspecified (principal); M25.69 Stiffness of other specified joint, not elsewhere classified; M25.651 Stiffness of right hip, not elsewhere classified; M25.652 Stiffness of left hip, not elsewhere classified
CPT/HCPCS: 97110; 97140; 97161; 97535

== ENCOUNTER → 2023-12-16 07:03 | Outpatient (CLI) | payer OTHER, MEDICAID, SELFPAY ==
--- NOTE | 2023-12-16 07:04 | DI.ECHO.S_ITS ---
[facility]---------+ [facility] +---------+ : : [address] : : : : [id number] : : : : Phone: [phone] +---------+ Echocardiogram Report + + :Name: JAYSHREE PERALTA Study Date: 12/16/2023 Height: 73 in : :[facility] ReadingLocation: Weight: 165 lb : : Gender: Male BSA: 2.0 m2 : :: 1990 Age: 33 yrs BP: 119/78 mmHg: :Reason For Study: CHEST PAIN : :Ordering Physician: JANY, : :ALE Performed By: Jeferson Dumont : :Referring: ALE CARMICHAEL : + + Interpretation Summary The ejection fraction is estimated to be 60-65%. The right ventricular systolic function is normal. The IVC is dilated (diameter is greater than 2.1 cm) and it collapses less than 50% with a sniff. This suggests a high right atrial pressure of 15 mm Hg. No significant valvular abnormality. Procedure: A two-dimensional transthoracic echocardiogram with color flow and Doppler was performed. The study quality was technically adequate. Comparison is made with the echocardiogram of 12/26/15. The patient was in normal sinus rhythm during the exam. The heart rate ranged between 46-56 bpm during the study. Left Ventricle: The left ventricle is normal in size and wall thickness. The ejection fraction is estimated to be 60-65%. There are no obvious focal wall motion abnormalities noted but poor endocardial definition reduces the sensitivity for the detection of such. Diastolic parameters suggest probable normal left ventricular diastolic function and normal filling pressures. Right Ventricle: The right ventricle is borderline dilated. The right ventricular systolic function is normal. Atria: The left atrial size is normal. Right atrial size is normal. Mitral Valve: The mitral valve is normal in structure and function. There is no mitral valve stenosis. There is trace mitral regurgitation. Aortic Valve: The aortic valve is trileaflet. There is no aortic valve stenosis. No aortic regurgitation is present. Tricuspid Valve: The tricuspid valve is normal in structure and function. There is no tricuspid stenosis. There is a trace or physiologic amount of tricuspid regurgitation. Pulmonic Valve: The pulmonic valve is normal in structure and function. There is no pulmonic valvular stenosis. There is no pulmonic valvular regurgitation. Great Vessels: The aortic root is normal size. The dimensions of the ascending aorta are normal. The IVC is dilated (diameter is greater than 2.1 cm) and it collapses less than 50% with a sniff. This suggests a high right atrial pressure of 15 mm Hg. Pericardium/ Pleura There is no pericardial effusion. There is no pleural effusion. MMode/2D Measurements & Calculations LVIDd: 5.3 cm LVOT diam: 2.1 cm LVIDs: 3.5 cm Ao root diam: 3.3 cm FS: 34.9 % asc Aorta Diam: 3.2 cm IVSd: 0.64 cm Ao Arch Diam (Prox Trans): 2.3 cm LVPWd: 0.73 cm LV barreto. diameter/BSA (cm/m^2): 2.7 LV sys. diameter/BSA (cm/m^2): 1.8 LA A2 area: 17.5 cm2 RA long axis: 4.7 cm LA A4 area: 18.8 cm2 RA area: 18.5 cm2 LA length (vol): 5.1 cm RA vol: 62.1 ml LA vol: 54.9 ml RA : 31.3 ml/m2 LA vol index: 27.7 ml/m2 IVC diam: 2.8 cm RVD1 (basal): 4.1 cm RVD2 (mid): 3.8 cm TAPSE: 2.7 cm Doppler Measurements & Calculations Ao V2 max: 138.0 cm/sec LVOT Max Javon: 113.5 cm/sec Ao V2 mean: 94.7 cm/sec LV V1 max P.2 mmHg Ao max P.6 mmHg LV V1 VTI: 28.9 cm Ao mean P.1 mmHg EJ(I,D): 2.8 cm2 Ao V2 VTI: 36.2 cm EJ(V,D): 2.9 cm2 sev ratio: 0.80 EJ indexed to BSA (cm^2/m^2): 1.4 MV E max javon: 121.8 cm/sec PA V2 max: 104.7 cm/sec MV A max javon: 57.3 cm/sec PA V2 mean: 75.7 cm/sec MV E/A: 2.1 PA mean P.6 mmHg Med Peak E' Javon: 13.1 cm/sec PA pr(Accel): 7.1 mmHg E/E' med: 9.3 Lat Peak E' Javon: 15.9 cm/sec E/E' lat: 7.7 E/e' average: 8.5 MV dec time: 0.20 sec SVLVOT): 102.0 ml Reading Physician:FLORIAN
== END ==
LOC: ECHO 07:04
PROVIDERS: Family Provider Family Medicine; PCP Family Medicine; Referring Provider Family Medicine; Visit Provider Family Medicine
DX: R07.9 Chest pain, unspecified (principal); Z82.49 Family history of ischemic heart disease and other diseases of the circulatory system
CPT/HCPCS: 93306

== ENCOUNTER → 2023-12-21 15:07 | Outpatient (CLI) | payer OTHER, MEDICAID, SELFPAY | LOC: CAR 15:08 | PROVIDERS: Family Provider Family Medicine; PCP Family Medicine; Referring Provider Family Medicine; Visit Provider Family Medicine | DX: R07.9 Chest pain, unspecified (principal); Z82.49 Family history of ischemic heart disease and other diseases of the circulatory system | CPT/HCPCS: 93242 ==

== ENCOUNTER → 2024-02-08 09:11 | Outpatient (CLI) | payer OTHER, MEDICAID, SELFPAY ==
[2024-02-08 09:55] LABS: Add Manual Diff / Slide Review NO; Basophils Absolute Auto 0 /uL (0-100); Basophils Percent Auto 0.7 % (0-2); Eosinophils Absolute Auto 100 /uL (0-450); Eosinophils Percent Auto 2.6 % (2-4); Hematocrit 41.8 % (41-53); Hemoglobin 14.1 g/dL (13.5-17.5); Lymphocytes Absolute Auto 1400 /uL (1100-4500); Mean Corpuscular HGB Conc 33.7 % (30-36); Mean Corpuscular Hemoglobin 31.5 PG (26-34); Mean Corpuscular Volume 93.4 fL (80-100); Monocytes Absolute Auto 200 /uL (0-900); Monocytes Percent Auto 6.6 % (3-14); Neutrophils Absolute Auto 1000 /uL (1500-7000); Neutrophils Percent Auto 38.1 % (50-75); Platelet Count 207 X10^3/uL (150-400); Red Blood Cell Count 4.47 X10^6/uL (4.5-5.9); Red Cell Distribution Width 13.3 % (11.6-14.8); White Blood Cell Count 2.7 X10^3/uL (4.5-11.0)
[2024-02-08 10:11] LABS: HEMOLYSIS 25 (0-50); Iron 161 ug/dL (49-181)
[2024-02-08 10:24] LABS: Percent Iron Saturation 55 % (20-50); Total Iron Binding Capacity 295 ug/dL (261-462); Transferrin 243 mg/dL (206-381)
[2024-02-08 10:44] LABS: TSH w/ Reflex to FT4 1.72 uIU/mL (0.47-4.68)
[2024-02-08 11:04] LABS: Vitamin B12 815 pg/mL (239-931)
[2024-02-08 16:52] LABS: Vitamin D 25 Hydroxy (D3) 34.1 ng/mL (30.0-100.0)
== END ==
LOC: LAB 09:13
PROVIDERS: Family Provider Family Medicine; PCP Family Medicine; Referring Provider Family Medicine; Visit Provider Family Medicine
DX: D72.819 Decreased white blood cell count, unspecified (principal); E55.9 Vitamin D deficiency, unspecified; Z86.2 Personal history of diseases of the blood and blood-forming organs and certain disorders involving the immune mechanism; Z82.49 Family history of ischemic heart disease and other diseases of the circulatory system; R13.10 Dysphagia, unspecified
CPT/HCPCS: 36415; 82306; 82607; 83540; 83550; 84443; 85025

== ENCOUNTER 2025-04-01 16:38 | Emergency (ER) | payer OTHER, SELFPAY ==
[2025-04-01] VITALS (7 sets, daily range): BP systolic 103–109; BP diastolic 55–65; PULSE 58–72; RESP 16–20; TEMP 36.8; O2SAT 69–100; BMI 21.2
--- NOTE | 2025-04-01 16:59 | DI.RAD.S_ITS ---
PROCEDURE: XR HAND RT MIN 3V INDICATIONS: fall TECHNIQUE: 3 views of the hand acquired. COMPARISON: None. FINDINGS: Bones: Comminuted minimally displaced fractures of the 3rd and 4th metacarpal shafts. Remaining visualized osseous structures are intact. Soft tissues: No suspicious soft tissue calcifications. IMPRESSION: Comminuted minimally displaced fractures of the 3rd and 4th metacarpal shafts. Approved by: Cj Oro M.D. on 04/01/2025 at 17:02
--- NOTE | 2025-04-01 17:11 | DI.RAD.S_ITS ---
PROCEDURE: XR RIBS LT MIN 3V W CXR1V INDICATIONS: skateboard trauma/Lft rib px TECHNIQUE: 2 views of the ribs were acquired, along with a single view chest. COMPARISON: None. FINDINGS: Surgical changes and devices: None. Bones and chest wall: No acute displaced rib fracture. No suspicious bony lesions. Overlying soft tissues appear unremarkable. Lungs and pleura: No pleural effusions or pneumothorax. Lungs appear clear. Mediastinum: Mediastinal contours appear normal. Heart size is normal. IMPRESSION: No acute displaced rib fracture or pneumothorax. Approved by: Cj Oro M.D. on 04/01/2025 at 17:04
--- NOTE | 2025-04-01 18:35 | ED_ITS ---
HPI - Fall General Chief Complaint: Fall Stated Complaint: fell RT hand, can't move and swelling Time Seen by Provider: 04/01/25 18:00 Mode of arrival: Ambulatory History of Present Illness HPI Narrative: 35-year-old gentleman healthy otherwise with no significant past medical or past surgical history presents with skateboard injury with complaints of left-sided chest wall pain and right hand injury. He denies headache, dizziness, loss of consciousness, neck pain, chest pain, shortness of breath, dyspnea on exertion, bowel or bladder incontinence, abdominal pain or back pain. Other than what is stated 14 point review of system is negative. Related Data Previous Rx's Medication Instructions Recorded minoxidil 2.5 mg tablet 2.5 mg PO DAILY #90 tabs 07/16/24 hydrocodone 5 mg-acetaminophen 325 1 tab PO Q4-6H PRN pain #20 tabs 04/01/25 mg tablet Allergies Allergy/AdvReac Type Severity Reaction Status Date / Time No Known Drug Allergies Allergy Verified 07/16/24 14:54 Review of Systems Review of Systems ROS Unobtainable: All systems reviewed & are unremarkable except as noted in HPI and below Patient History Medical History Hair loss ADD (attention deficit disorder) Dysphagia Leukopenia Vitamin D deficiency History of anemia due to vitamin B12 deficiency Encounter for well adult exam without abnormal findings Male fertility problem Allergic rhinitis Right hip pain Lump of skin of left lower extremity No significant past medical history Family History Father Essential hypertension Heart muscle disorder caused by another medical condition Mother Essential hypertension Irritable bowel syndrome without diarrhea Alcoholism Smoking Status: Former smoker alcohol intake frequency: 0-2 drinks per day Exam Narrative Exam Narrative: GENERAL: [35] year old patient appears stated age. Well-developed patient, in mild distress. HEAD: Atraumatic. Normocephalic. EYES: Pupils equal round and reactive. Extraocular motions intact. No scleral icterus. No injection or drainage. NECK: Trachea midline. Non tender CARDIOVASCULAR: Regular rate and rhythm without murmurs, gallops, or rubs. L sided chest wall TTP anterolateral region 6-10 with no crepitus RESPIRATORY: Clear to auscultation. Breath sounds equal bilaterally. No wheezes, rales, or rhonchi. EXTREMITIES: R dorsum hand swelling 3rd and 4th metacarpal region, motor and sensory intact +2 rad pulse cap refill <2secs, able to make a fist and make stop sign with his hand. FROM OF R shoulder, elbow, and wrist. BACK: Nontender without deformity or crepitance. No flank tenderness. NEURO: AOx3. GCS 15 nonfocal neuro exam moving all limbs spontaneously with no difficulty SKIN: No rash or erythema of visible areas Initial Vital Signs Initial Vital Signs: Vital Signs Temperature 98.2 F 04/01/25 16:46 Pulse Rate 72 04/01/25 16:46 Respiratory Rate 20 04/01/25 16:46 Blood Pressure 103/64 04/01/25 16:46 Pulse Oximetry 69 L 04/01/25 16:46 Oxygen Delivery Method Room Air 04/01/25 16:46 Course Orders Ordered: ED Orders 04/01/25 16:59 XR hand RT min 3V Stat 04/01/25 17:11 XR ribs LT min 3V w CXR1V Stat Vital Signs Vital signs: Vital Signs - 8 hr 04/01/25 16:46 Temperature 98.2 F Pulse Rate 72 Respiratory Rate 20 Blood Pressure 103/64 Pulse Oximetry 69 L Oxygen Delivery Method Room Air MDM - Fall Imaging Data Chest x-ray: Radiologist's Impression: [place] [address] XRay Report Signed Patient: Ciaran Garcia MR#: [id number] : 1990 Acct:[id number] Age/Sex: 35 / M Date of Service: 04/01/25 Loc: ED Accession Number: [id number] Procedure: XR ribs LT min 3V w CXR1V Ordering Provider: Christopher Gonzalez MD PROCEDURE: XR RIBS LT MIN 3V W CXR1V INDICATIONS: skateboard trauma/Lft rib px TECHNIQUE: 2 views of the ribs were acquired, along with a single view chest. COMPARISON: None. FINDINGS: Surgical changes and devices: None. Bones and chest wall: No acute displaced rib fracture. No suspicious bony lesions. Overlying soft tissues appear unremarkable. Lungs and pleura: No pleural effusions or pneumothorax. Lungs appear clear. Mediastinum: Mediastinal contours appear normal. Heart size is normal. IMPRESSION: No acute displaced rib fracture or pneumothorax. Extremity x-ray #1: Radiologist's Impression: [address] [address] XRay Report Signed Patient: Ciaran Garcia MR#: [id number] : 1990 Acct:[id number] Age/Sex: 35 / M Date of Service: 04/01/25 Loc: ED Accession Number: [id number] Procedure: XR hand RT min 3V Ordering Provider: Christopher Gonzalez MD PROCEDURE: XR HAND RT MIN 3V INDICATIONS: fall TECHNIQUE: 3 views of the hand acquired. COMPARISON: None. FINDINGS: Bones: Comminuted minimally displaced fractures of the 3rd and 4th metacarpal shafts. Remaining visualized osseous structures are intact. Soft tissues: No suspicious soft tissue calcifications. IMPRESSION: Comminuted minimally displaced fractures of the 3rd and 4th metacarpal shafts. MDM Narrative Medical decision making narrative: Vital signs, nurse triage note, medication list, previous ER visits, and all imaging studies reviewed. Chest x-ray did not show any acute displaced rib fracture or pneumothorax. Hand x-ray showed comminuted minimally displaced fractures of the 3rd and 4th metacarpal chest. Patient placed in a short-arm cast given ibuprofen and Soso here. Patient will follow up as outpatient with Dr. Shaw at [facility]. Differential diagnosis includes fracture, dislocation, pneumothorax, rib fractures, and contusion. Discharge Plan Departure Patient Disposition: Home Clinical Impression: Chest wall contusion Qualifiers: Encounter type: initial encounter Laterality: left Qualified Code(s): S20.212A - Contusion of left front wall of thorax, initial encounter Fracture, metacarpal shaft Qualifiers: Encounter type: initial encounter Metacarpal bone: third Fracture type: closed Fracture alignment: displaced Laterality: right Qualified Code(s): S62.322A - Displaced fracture of shaft of third metacarpal bone, right hand, initial encounter for closed fracture Activity Restrictions/Additional Instructions: Return with new or worsening symptoms. Take medicines as directed. Follow up with Dr. Cohn [facility]. Prescriptions: New hydrocodone-acetaminophen 5-325 mg tablet 1 tab PO Q4-6H PRN (Reason: pain) Qty: 20 0RF No Action minoxidil 2.5 mg tablet 2.5 mg PO DAILY Qty: 90 3RF Referrals: Ruel Best DO [Primary Care Provider] - Angel Shaw MD [Physician] - 3-5 days Stand Alone Forms: Patient Portal/API/Survey
[2025-04-01] MEDS: HYDROCODONE/ACET 5/325 TABLET 1 TAB PO (19:22)
[2025-04-01] MEDS: IBUPROFEN 400 MG TABLET 800 MG PO (19:24)
== END 2025-04-01 19:54 | disposition home or self-care (01) ==
PROVIDERS: Emergency Provider Family Medicine; Family Provider Family Medicine; PCP Family Medicine
DX: S62.322A Displaced fracture of shaft of third metacarpal bone, right hand, initial encounter for closed fracture (principal); S20.212A Contusion of left front wall of thorax, initial encounter; V00.131A Fall from skateboard, initial encounter
CPT/HCPCS: 71101; 73130; 99283

== ENCOUNTER 2025-08-27 11:30 | Outpatient (RCR) | payer OTHER, SELFPAY ==
--- NOTE | 2025-06-04 13:16 | OT.OPPOC ---
Physical, Occupational & Speech Therapy At [facility] GarciaCiaran [id number] 1990 Visit Care Team Role Provider Type Ruel Best DO Family Provider Physician Primary Care Provider Address: [address] [place] [address], [address] Hoa Rojas PA-C Attending Provider Advanced Relief Map Modeler Referring Provider Address: [address] [place] [address], [id number] Occupational Therapy Plan of Care OT Outpatient Adult Evaluation Start: 06/04/25 08:31 Freq: Status: Active Protocol: Document 06/04/25 09:45 (Rec: 06/04/25 08:48 [id number]) General Information - Adult Visit Information Visit Number 1 of 12 Plan of Care Dates 06/04/25-08/27/25 Insurance no pre-auth;no copay/deductible;max 12 OT visits, Information including 1 evaluation, pe Session Time Visit Start Date 06/04/25 Visit Start Time 09:45 Visit Stop Time 10:30 Setting Treatment Setting Outpatient Care Visit Type Note Type Initial Evaluation Referral Referring Physician Hoa Rojas PA-C Reason for Referral right 3rd and 4th metacarpal fractures Identification Identification Yes Confirmed Identification EMR Confirmed By Social Information Social History I have noticed my hand and fingers will start to tingle mostly at night, but just in the last week or so Patient Questionnaires Quick Dash- Upper Extremity Quick Dash UE Score 34.1 Quick Dash- Work and Sports Modules Quick Dash W&S Score W: 56.3, S: 31.3 Quick Dash Work and 40 to 59% Impaired (Score 40-59) Sport Impairment Goals Objective Measurements Objective Gore Inserter Strength (Average of 3 trials): Measurements ? R: 19.7 lbs () ? L: 62 lbs (6262/62) 3-Jaw Kobe Pinch (Average of 3 trials): ? R: 17.3 lbs (18) ? L: 31.3 lbs (3032/32) AROM Measurements: Left Hand MCPs: 1st: 83?, 2nd: 92?, 3rd: 90?, 4th: 91? PIPs: 1st: 110?, 2nd: 108?, 3rd: 108?, 4th: 102? DIPs: 1st: 82?, 2nd: 90?, 3rd: 80?, 4th: 84? Right Hand MCPs: 1st: 94?, 2nd: 80?, 3rd: 72?, 4th: 70? PIPs: 1st: 96?, 2nd: 96?, 3rd: 100?, 4th: 94? DIPs: 1st: 62?, 2nd: 80?, 3rd: 60?, 4th: 64? Otenies significant pain but reports general stiffness and tightness in hand with use. Treatment Treatment Patient was educated on the physiology of fracture healing and potential causes of current paresthesia symptoms, which may be related to prolonged immobilization or increased activity demands. Discussion included expected progression through therapy, potential use of ice or heat modalities for inflammation, stiffness, or discomfort, and strategies for monitoring symptom provocation. Patient was instructed in a home exercise program including gentle active range of motion exercises for the wrist and digits, tendon gliding exercises, and thumb opposition with use of the left hand to assist as needed. Emphasis was placed on remaining within a pain-free range and avoiding overexertion. 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 Patient demonstrated good understanding and return demonstration of the home program. Short Term Goals Short Term Goals Within 6 weeks: 1. Patient will perform home tendon gliding and AROM exercises independently with 100% accuracy in form and adherence at least 5 days/week as reported or documented. 2. Patient will report a =50% reduction in frequency and severity of paresthesia in R hand during daily activities and sleep, as measured by subjective report and symptom log. 3. 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 Half-Way Goals Half-Way Goals Within 10 weeks: 1. 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 2. Patient will perform all functional grasp, release, and manipulation tasks with RUE during simulated work tasks without symptom provocation and with normalized movement patterns. 3. Patient will demonstrate full pain-free AROM of the R hand and wrist, including digit flexion and extension within functional limits for age and job demands. 4. Patient will increase perceived level of independence during ADL and IADL task as evidenced by a QuickDASH score of </= 20 for all sections. Assessment/Plan Assessment Patient Response Good Rehabilitation Excellent Potential Impairments ADLs,Body Mechanics,Coordination/Dexterity,Flexibility, Identified Functional Activities,Motor Function,Weakness,Range of Motion,Recreational Activities,Meaningful Activities, Stiffness Treatment Assessment 35 year old RHD male referred to occupational therapy by Hoa Rojas PA-C after a ground level fall while skateboarding on 04/01/25. Pt presents today at 9 weeks post R 3rd and 4th metacarpal fractures with residual stiffness and moderate weakness of the R hand. 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 Paresthesia in the ulnar nerve distribution has emerged in the last week, potentially related to post-immobilization nerve irritation or cumulative stress with return to activity. Patient is highly motivated and demonstrates good insight and carryover. Will continue to benefit from skilled OT for progression of AROM, strengthening, edema/paresthesia management, and functional task retraining for return to full work participation. Home Exercise introduced tendon glides, AROM stretches Program Reviewed with Goals,Progress Being Made,Home Exercise Program Patient Patient Good Understanding Plan Length of treatment 12 (weeks) Plan of Care Start 06/04/25 Date Plan of Care End 08/27/25 Date Comment 1-2x week as needed Treatment Frequency Once a Week Treatment Duration 45 Minutes Therapeutic Contents Active Range of Motion,Client Education,Functional Activities,Home Exercise Program,Education,Self-Care, Stretching/Flexibility Activities,Therapeutic Activities,Therapeutic Exercises,Modalities Modalities As Needed Types of Modalities Other Additional Types of ice bath, MHP, paraffin Modalities Patient Instruction Home Exercise Program,Plan of Care,Questions/Concerns Patient Continue with Current Program Recommendations Electronically Signed by: Ana Hickman OT 06/04/25 5039 If you are in agreement with this Plan of Care, please return a signed and dated copy. I have reviewed this Plan of Care and certify that the skilled therapy services above are required to meet the patient?s needs. Physician Signature Date Printed Name and Credentials Clinical Instructor Signature Printed Name and Credentials
--- NOTE | 2025-06-05 13:31 | OT.OP.TRT ---
Visit Care Team Role Provider Type Ruel Best DO Family Provider Physician Primary Care Provider Specialty: Family Practice Address: [address] [place] [address], [address] Email: [email or web address] Hoa Rojas PA-C Attending Provider Advanced Cardiac Cath Rn Referring Provider Specialty: Orthopedics Orthopedic Surgery Address: [address] [place] [address], [id number] Email: [email or web address] Occupational Therapy Treatment Note OT Outpatient Treatment Note - Adult Start: 06/04/25 08:31 Freq: Status: Active Protocol: Document 06/05/25 10:45 (Rec: 06/05/25 10:42 [id number]) OT Outpatient Adult Treatment Note Session Time Visit Start Date 06/05/25 Visit Start Time 10:45 Visit Stop Time 11:30 Visit Information Visit Number 2 of 12 Plan of Care Dates 06/04/25-08/27/25 Insurance no pre-auth;no copay/deductible;max 12 OT visits, Information including 1 evaluation Setting Treatment Setting Outpatient Care Visit Type Note Type Treatment Note - Subjective Identification Type Name Identification Medical Record Reconciled With Observations I haven't really had a chance to look at the exercises you gave me yet - Objective Objective Flowers Pinch: [L: , average 27lb ] [R: , Measurements average 23lb] Short Term Goals Within 6 weeks: 1. Patient will perform home tendon gliding and AROM exercises independently with 100% accuracy in form and adherence at least 5 days/week as reported or documented. 2. Patient will report a =50% reduction in frequency and severity of paresthesia in R hand during daily activities and sleep, as measured by subjective report and symptom log. 3. 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 Fpc Goals Within 10 weeks: 1. 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 2. Patient will perform all functional grasp, release, and manipulation tasks with RUE during simulated work tasks without symptom provocation and with normalized movement patterns. 3. Patient will demonstrate full pain-free AROM of the R hand and wrist, including digit flexion and extension within functional limits for age and job demands. 4. Patient will increase perceived level of independence during ADL and IADL task as evidenced by a QuickDASH score of </= 20 for all sections. - Exercises 1 Descriptor Reviewed HEP: Including tendon glides, theraputty exercises for hook/ flat/composite fists, finger abduction/adduction, wrist flex/ext, ulnar/radial deviation, finger extension, thumb opposition Reviewed retrograde massage as pt with significant swelling in R hand versus at eval the day prior. Pt stated actively holding a table top position with MCPs caused some low grade pain (1-2/10) and introduced use of coban for prolonged stretching, pt verbalized good understanding and fair return demo of all exercises with max verbal and visual cues. Educated patient on heat versus ice for pain and swelling management with pt verbalizing good understanding Side Right - Assessment Patient Response to Good Treatment Rehabilitation Excellent Potential Impairments ADLs,Body Mechanics,Coordination/Dexterity,Flexibility, Identified Functional Activities,Motor Function,Weakness,Range of Motion,Recreational Activities,Meaningful Activities, Stiffness Progress Towards Good Progress Goals Assessment of Improving Overall Progress Assessment of Patient presents with continued deficits in right hand Improvement strength and ROM following 3rd and 4th metacarpal fractures, with new lateral pinch strength measured at 23 lbs (compared to 27 lbs on L). Notable increase in R hand swelling since prior session, potentially due to recent activity. Patient demonstrated mild pain (1?2/10 ) during sustained MCP flexion in tabletop position, indicating soft tissue tightness and early joint stiffness. HEP was expanded to include tendon glides, graded putty work for composite and differential grasp patterns, and wrist/forearm AROM. Coban wrap was introduced for prolonged stretch, and retrograde massage was reviewed for edema management. Patient required maximal cues for correct execution of exercises but demonstrated fair return demonstration and good insight. Will continue to benefit from skilled OT to address edema, improve AROM and strength, and support safe reintegration into functional tasks. Home Exercise Tendon glides, theraputty hand/finger/wrist, retrograde Program massage Reviewed with Goals,Progress Being Made,Home Exercise Program Patient/Caregiver Patient/Caregiver Good Understanding - Plan Therapy Continue with Current Program Recommendations Amount of Therapy 2-3 Months Recommended Comment 1-2x/week as needed Frequency of Once a Week Treatment Length of Session 45 Minutes Therapeutic Contents Active Range of Motion,Client Education,Functional Activities,Home Exercise Program,Education,Self-Care, Stretching/Flexibility Activities,Therapeutic Activities,Therapeutic Exercises,Modalities Modalities As Needed Types of Modalities Other Additional Types of ice bath, MHP, paraffin Modalities
--- NOTE | 2025-06-11 13:38 | OT.OP.TRT ---
Visit Care Team Role Provider Type Ruel Best DO Family Provider Physician Primary Care Provider Specialty: Family Practice Address: [address] [place] [address], [id number] Email: [email or web address] Hoa Rojas PA-C Attending Provider Advanced Display Designer Referring Provider Specialty: Orthopedics Orthopedic Surgery Address: [address] [place] [address], [address] Email: [email or web address] Occupational Therapy Treatment Note OT Outpatient Treatment Note - Adult Start: 06/04/25 08:31 Freq: Status: Active Protocol: Document 06/11/25 11:40 (Rec: 06/11/25 08:53 [id number]) OT Outpatient Adult Treatment Note Session Time Visit Start Date 06/05/25 Visit Start Time 11:30 Visit Stop Time 12:15 Visit Information Visit Number 3 of 12 Plan of Care Dates 06/04/25-08/27/25 Insurance no pre-auth;no copay/deductible;max 12 OT visits, Information including 1 evaluation Setting Treatment Setting Outpatient Care Visit Type Note Type Treatment Note - Subjective Identification Type Name Identification Medical Record Reconciled With Observations The tingling is a lot better and I feel like my fingers go into a fist easier - Objective Short Term Goals Within 6 weeks: 1. Patient will perform home tendon gliding and AROM exercises independently with 100% accuracy in form and adherence at least 5 days/week as reported or documented. 2. Patient will report a =50% reduction in frequency and severity of paresthesia in R hand during daily activities and sleep, as measured by subjective report and symptom log. 3. 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 Type Disk Quality Control Supervisor Goals Within 10 weeks: 1. 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 2. Patient will perform all functional grasp, release, and manipulation tasks with RUE during simulated work tasks without symptom provocation and with normalized movement patterns. 3. Patient will demonstrate full pain-free AROM of the R hand and wrist, including digit flexion and extension within functional limits for age and job demands. 4. Patient will increase perceived level of independence during ADL and IADL task as evidenced by a QuickDASH score of </= 20 for all sections. - Treatment 1 Descriptor Therapeutic education was provided regarding continued swelling, including review of proper icing protocol, use of retrograde massage, activity modification, and elevation of the hand. A compression glove was discussed as a potential adjunct for edema control pending ongoing symptom monitoring. Exercises 1 Descriptor Flexbar (Red) 2x10 for the following on R hand: 1. wrist flex/ext 2. Radial/ulnar deviation 3. Pronation/supination FA massage with flexbar Green finger extension exercises 2x10 - Assessment Patient Response to Good Treatment Rehabilitation Excellent Potential Impairments ADLs,Body Mechanics,Coordination/Dexterity,Flexibility, Identified Functional Activities,Motor Function,Weakness,Range of Motion,Recreational Activities,Meaningful Activities, Stiffness Progress Towards Good Progress Goals Assessment of Improving Overall Progress Assessment of Patient continues to demonstrate swelling, stiffness, Improvement and mild weakness in the right hand and forearm following metacarpal fractures. Therapeutic exercises were well tolerated with no increase in reported symptoms during or after activity. Edema remains a primary limiting factor for both motion and functional use, and may be contributing to intermittent paresthesia. Patient was receptive to education regarding edema management strategies and demonstrated appropriate insight into the need for activity modification. Will continue skilled OT to support edema reduction, restore strength and mobility, and promote functional reintegration into daily and work-related tasks. Home Exercise Tendon glides, theraputty hand/finger/wrist, retrograde Program massage Reviewed with Goals,Progress Being Made,Home Exercise Program Patient/Caregiver Patient/Caregiver Good Understanding - Plan Therapy Continue with Current Program Recommendations Amount of Therapy 2-3 Months Recommended Comment 1-2x/week as needed Frequency of Once a Week Treatment Length of Session 45 Minutes Therapeutic Contents Active Range of Motion,Client Education,Functional Activities,Home Exercise Program,Education,Self-Care, Stretching/Flexibility Activities,Therapeutic Activities,Therapeutic Exercises,Modalities Modalities As Needed Types of Modalities Other Additional Types of ice bath, MHP, paraffin Modalities
--- NOTE | 2025-06-14 17:05 | OT.OP.TRT ---
Visit Care Team Role Provider Type Ruel Best DO Family Provider Physician Primary Care Provider Specialty: Family Practice Address: [address] [place] [address], [id number] Email: [email or web address] Hoa Rojas PA-C Attending Provider Advanced Locomotive Operator Referring Provider Specialty: Orthopedics Orthopedic Surgery Address: [address] [place] [address] Email: [email or web address] Occupational Therapy Treatment Note OT Outpatient Treatment Note - Adult Start: 06/04/25 08:31 Freq: Status: Active Protocol: Document 06/14/25 16:15 (Rec: 06/13/25 16:17 [id number]) OT Outpatient Adult Treatment Note Session Time Visit Start Date 06/14/25 Visit Start Time 16:15 Visit Stop Time 17:00 Visit Information Visit Number 4 of 12 Plan of Care Dates 06/04/25-08/27/25 Insurance no pre-auth;no copay/deductible;max 12 OT visits, Information including 1 evaluation Setting Treatment Setting Outpatient Care Visit Type Note Type Treatment Note - Subjective Identification Type Name Identification Medical Record Reconciled With Observations I got a couple of compression sleeves that really seemed to help Patient/Caregiver Good Compliance with Home Exercise Program - Objective Short Term Goals Within 6 weeks: 1. Patient will perform home tendon gliding and AROM exercises independently with 100% accuracy in form and adherence at least 5 days/week as reported or documented. 2. Patient will report a =50% reduction in frequency and severity of paresthesia in R hand during daily activities and sleep, as measured by subjective report and symptom log. 3. 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 Detention Goals Within 10 weeks: 1. 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 2. Patient will perform all functional grasp, release, and manipulation tasks with RUE during simulated work tasks without symptom provocation and with normalized movement patterns. 3. Patient will demonstrate full pain-free AROM of the R hand and wrist, including digit flexion and extension within functional limits for age and job demands. 4. Patient will increase perceived level of independence during ADL and IADL task as evidenced by a QuickDASH score of </= 20 for all sections. - Exercises 1 Descriptor Flexbar (Red) 2x10 for the following on R hand: 1. wrist flex/ext 2. Radial/ulnar deviation 3. Pronation/supination FA massage with flexbar Yellow putty with 20 beads, good return demo In-hand manipulation tasks using coins of various sizes and weights - Assessment Patient Response to Good Treatment Rehabilitation Excellent Potential Impairments ADLs,Body Mechanics,Coordination/Dexterity,Flexibility, Identified Functional Activities,Motor Function,Weakness,Range of Motion,Recreational Activities,Meaningful Activities, Stiffness Progress Towards Good Progress Goals Assessment of Improving Overall Progress Assessment of Patient presents with notable improvement in right hand Improvement edema since last session, reporting that consistent use of compression sleeves has been beneficial. Visible reduction in swelling observed, with restored knuckle creases evident today. Patient demonstrated decreased fine motor control during in-hand manipulation tasks, with multiple drops noted when translating coins from palm to fingertips, indicating ongoing deficits in intrinsic muscle coordination and dexterity. Therapeutic exercise session focused on progressive wrist and forearm strengthening using red Flexbar ( wrist flexion/extension, radial/ulnar deviation, pronation/supination) and forearm massage with Flexbar to promote circulation and tissue mobility. Yellow putty activity with 20 beads was performed to challenge grasp/release, coordination, and endurance, with good return demonstration. Patient is making measurable progress toward edema reduction and tolerance for strengthening, but continues to require skilled OT to address fine motor coordination, mold builder stability, and strength for work-related and daily functional tasks. Home Exercise Tendon glides, theraputty hand/finger/wrist, retrograde Program massage Reviewed with Goals,Progress Being Made,Home Exercise Program Patient/Caregiver Patient/Caregiver Good Understanding - Plan Therapy Continue with Current Program Recommendations Amount of Therapy 2-3 Months Recommended Comment 1-2x/week as needed Frequency of Once a Week Treatment Length of Session 45 Minutes Therapeutic Contents Active Range of Motion,Client Education,Functional Activities,Home Exercise Program,Education,Self-Care, Stretching/Flexibility Activities,Therapeutic Activities,Therapeutic Exercises,Modalities Modalities As Needed Types of Modalities Other Additional Types of ice bath, MHP, paraffin Modalities
--- NOTE | 2025-06-18 12:57 | OT.OPPN ---
Current Diagnoses Displaced fracture of shaft of third metacarpal bone, right hand, subsequent encounter for fracture with routine healing (06/18/25) Displaced fracture of shaft of fourth metacarpal bone, right hand, subsequent encounter for fracture with routine healing (06/18/25) OT Progress Note OT Outpatient Treatment Note - Adult Start: 06/04/25 08:31 Freq: Status: Active Protocol: Document 06/18/25 11:30 (Rec: 06/18/25 10:53 [id number]) OT Outpatient Adult Treatment Note Session Time Visit Start Date 06/18/25 Visit Start Time 11:30 Visit Stop Time 12:15 Visit Information Visit Number 5 of 12 Plan of Care Dates 06/04/25-08/27/25 Insurance no pre-auth;no copay/deductible;max 12 OT visits, Information including 1 evaluation Setting Treatment Setting Outpatient Care Visit Type Note Type Progress Note - Subjective Identification Type Name Identification Medical Record Reconciled With Observations After the coban stretching this week, I was able to get my finger tips to touch my palm which was new! Patient/Caregiver Good Compliance with Home Exercise Program - Objective Short Term Goals Within 6 weeks: 1. Patient will perform home tendon gliding and AROM exercises independently with 100% accuracy in form and adherence at least 5 days/week as reported or documented. [MET 06/18/25] 2. Patient will report a =50% reduction in frequency and severity of paresthesia in R hand during daily activities and sleep, as measured by subjective report and symptom log. [PROGRESSING 06/18/25] 3. Patient will improve R rear admiral strength to =30 lbs to support return to modified work tasks without increased symptoms. [PROGRESSING 06/18/25] Detention Goals Within 10 weeks: 1. 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 [ PROGRESSING 06/18/25] 2. Patient will perform all functional grasp, release, and manipulation tasks with RUE during simulated work tasks without symptom provocation and with normalized movement patterns. [PROGRESSING 06/18/25] 3. Patient will demonstrate full pain-free AROM of the R hand and wrist, including digit flexion and extension within functional limits for age and job demands. [ PROGRESSING 06/18/25] 4. Patient will increase perceived level of independence during ADL and IADL task as evidenced by a QuickDASH score of </= 20 for all sections. [ PROGRESSING 06/18/25] - Treatment 1 Descriptor HEP was reviewed and modified to focus on increased strengthening through use of theraputty and rubber bands, as well as incorporation of in-hand manipulation activities such as [id number] assembly, clothespin transfers, and Kapandji-type thumb opposition exercises . Patient participated in in-hand manipulation training using the game [employer], holding multiple pieces in the palm and using the thumb, index, and middle fingers to orient and place each piece. Patient reported this was easier than coin translation but noted fatigue along the ulnar side of the hand with sustained holding . Education was also provided regarding positioning strategies to reduce nighttime numbness/tingling, including sleeping with the elbow elevated; patient reports partial benefit from this but difficulty keeping pillow in place overnight. Exercises 1 Descriptor 2x10 for all exercises performed: Patient completed finger extension exercises using a green finger extensor band, performing full MCP extension and joint- blocked extension at the PIP and DIP joints of each digit. This was followed by finger flexion and extension with isometric resistance for each finger individually. The patient then completed usual Flexbar exercises (wrist flexion/extension, radial/ulnar deviation, pronation/supination) with progression from red to green Flexbar, reporting the increased resistance as a good challenge. Finger extension exercises were also performed with the hand flat on the table, lifting each finger individually with good return demonstration. Side Right Visual Cues Max Cues Verbal Cues Mod Cues - Assessment Patient Response to Good Treatment Rehabilitation Excellent Potential Impairments ADLs,Body Mechanics,Coordination/Dexterity,Flexibility, Identified Functional Activities,Motor Function,Weakness,Range of Motion,Recreational Activities,Meaningful Activities, Stiffness Progress Towards Good Progress Goals Assessment of Improving Overall Progress Assessment of Patient demonstrates ongoing progress in R hand Improvement recovery with improved strength tolerance, ability to achieve hook fist to palm following coban stretch, and increased challenge tolerated with green Flexbar compared to red. Notable endurance limitations remain in intrinsic musculature, evidenced by ulnar-sided hand fatigue during sustained in-hand manipulation. Patient continues to require maximal cueing for correct execution of extensor strengthening, but demonstrates good return demonstration and high motivation. Paresthesia symptoms remain intermittently present, particularly in the morning, but appear reduced with improved edema management and positional modifications. Patient is overall pleased with progress and will continue to benefit from skilled OT for progressive strengthening, dexterity retraining, and targeted coordination work to support return to full occupational and functional demands. Home Exercise Tendon glides, theraputty hand/finger/wrist, retrograde Program massage, extension/flexion with resistance Reviewed with Goals,Progress Being Made,Home Exercise Program Patient/Caregiver Patient/Caregiver Good Understanding - Plan Therapy Continue with Current Program Recommendations Amount of Therapy 2-3 Months Recommended Comment 1-2x/week as needed Frequency of Once a Week Treatment Length of Session 45 Minutes Therapeutic Contents Active Range of Motion,Client Education,Functional Activities,Home Exercise Program,Education,Self-Care, Stretching/Flexibility Activities,Therapeutic Activities,Therapeutic Exercises,Modalities Modalities As Needed Types of Modalities Other Additional Types of ice bath, MHP, paraffin Modalities If you are in agreement with this Plan of Care, please return a signed and dated copy. I have reviewed this Plan of Care and certify that the skilled therapy services above are required to meet the patient?s needs. Physician Signature Date Printed Name and Credentials Clinical Instructor Signature Printed Name and Credentials
--- NOTE | 2025-06-25 12:56 | OT.OP.TRT ---
Visit Care Team Role Provider Type Ruel Best DO Family Provider Physician Primary Care Provider Specialty: Family Practice Address: [address] [place] [address], [address] Email: [email or web address] Attending Provider Advanced Pbx Manager Referring Provider Specialty: Orthopedics Orthopedic Surgery Address: [address] [place] [address], [id number] Email: [email or web address] Occupational Therapy Treatment Note OT Outpatient Treatment Note - Adult Start: 06/04/25 08:31 Freq: Status: Active Protocol: Document 06/25/25 11:30 (Rec: 06/25/25 08:23 [id number]) OT Outpatient Adult Treatment Note Session Time Visit Start Date 06/25/25 Visit Start Time 11:30 Visit Stop Time 12:15 Visit Information Visit Number 6 of 12 Plan of Care Dates 06/04/25-08/27/25 Insurance no pre-auth;no copay/deductible;max 12 OT visits, Information including 1 evaluation Setting Treatment Setting Outpatient Care Visit Type Note Type Treatment Note - Subjective Identification Type Name Identification Medical Record Reconciled With Observations I don't know if my hand feels stronger per se, but my wrist definitely hurts less than it used to when I am gripping Patient/Caregiver Good Compliance with Home Exercise Program - Objective Short Term Goals Within 6 weeks: 1. Patient will perform home tendon gliding and AROM exercises independently with 100% accuracy in form and adherence at least 5 days/week as reported or documented. [MET 06/18/25] 2. Patient will report a =50% reduction in frequency and severity of paresthesia in R hand during daily activities and sleep, as measured by subjective report and symptom log. [PROGRESSING 06/18/25] 3. Patient will improve R nut roaster strength to =30 lbs to support return to modified work tasks without increased symptoms. [PROGRESSING 06/18/25] Mcc Goals Within 10 weeks: 1. 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 [ PROGRESSING 06/18/25] 2. Patient will perform all functional grasp, release, and manipulation tasks with RUE during simulated work tasks without symptom provocation and with normalized movement patterns. [PROGRESSING 06/18/25] 3. Patient will demonstrate full pain-free AROM of the R hand and wrist, including digit flexion and extension within functional limits for age and job demands. [ PROGRESSING 06/18/25] 4. Patient will increase perceived level of independence during ADL and IADL task as evidenced by a QuickDASH score of </= 20 for all sections. [ PROGRESSING 06/18/25] - Treatment 1 Descriptor Patient engaged in an in-hand manipulation task using a [employer] activity, holding multiple pegs in the ulnar side of the palm while translating them to radial digits for placement into the design board. Patient reported the task was not difficult, but noted mild fatigue toward the end of the activity, particularly during peg removal, and stated he had to focus on translation movements. Patient verbalized that this activity was easier to manage than the prior coin translation activity. Exercises 1 Descriptor Flexbar (Green) 2x10 for the following on R hand: 1. wrist flex/ext 2. Radial/ulnar deviation 3. Pronation/supination FA massage with flexbar Patient was also instructed in upper extremity nerve glides for the ulnar, radial, and median nerves, and demonstrated good return performance. Prayer and reverse prayer forearm stretches were introduced for additional flexibility and forearm extensibility. Tolerance Good Complexity Upgraded - Assessment Patient Response to Good Treatment Rehabilitation Excellent Potential Impairments ADLs,Body Mechanics,Coordination/Dexterity,Flexibility, Identified Functional Activities,Motor Function,Weakness,Range of Motion,Recreational Activities,Meaningful Activities, Stiffness Progress Towards Good Progress Goals Assessment of Improving Overall Progress Assessment of Patient continues to make gradual progress in right Improvement hand function with improved tolerance for strengthening and functional dexterity activities. Flexbar strengthening was well tolerated, and progression to green resistance is appropriate at this stage of recovery. Ongoing intermittent paresthesia is primarily localized to the ulnar digits, though at times affects the entire hand, warranting continued monitoring. Patient demonstrated good engagement and return demonstration of multi-nerve glides and forearm stretches, indicating readiness to integrate these into his HEP. In-hand manipulation tasks are improving in ease, though endurance deficits persist with sustained grasp and translation, evidenced by ulnar-sided fatigue during [employer] activity. Patient remains motivated and is progressing toward goals of restoring strength, coordination, and functional use of the right hand for work and daily activities. Pt will continue to benefit from skilled OT to address ongoing deficits for increased independence and function during ADL and IADL tasks. Home Exercise Tendon glides, theraputty hand/finger/wrist, retrograde Program massage, extension/flexion with resistance, ADDED: upper extremity nerve glides for the ulnar, radial, and median nerves, prayer/reverse prayer stretches Reviewed with Goals,Progress Being Made,Home Exercise Program Patient/Caregiver Patient/Caregiver Good Understanding - Plan Therapy Continue with Current Program Recommendations Amount of Therapy 2-3 Months Recommended Comment 1-2x/week as needed Frequency of Once a Week Treatment Length of Session 45 Minutes Treatment Emphasis figure 8 in-hand manipulation Next Session Therapeutic Contents Active Range of Motion,Client Education,Functional Activities,Home Exercise Program,Education,Self-Care, Stretching/Flexibility Activities,Therapeutic Activities,Therapeutic Exercises,Modalities Modalities As Needed Types of Modalities Other Additional Types of ice bath, MHP, paraffin Modalities
--- NOTE | 2025-07-02 12:40 | OT.OP.TRT ---
Visit Care Team Role Provider Type Ruel Best DO Family Provider Physician Primary Care Provider Specialty: Family Practice Address: [address] [place] [address], [id number] Email: [email or web address] Attending Provider Advanced [employer] Sciences Department Chair Referring Provider Specialty: Orthopedics Orthopedic Surgery Address: [address] [place] [address], [id number] Email: [email or web address] Occupational Therapy Treatment Note OT Outpatient Treatment Note - Adult Start: 06/04/25 08:31 Freq: Status: Active Protocol: Document 07/02/25 11:30 (Rec: 07/02/25 09:56 [id number]) OT Outpatient Adult Treatment Note Session Time Visit Start Date 07/02/25 Visit Start Time 11:30 Visit Stop Time 12:15 Visit Information Visit Number 7 of 12 Plan of Care Dates 06/04/25-08/27/25 Insurance no pre-auth;no copay/deductible;max 12 OT visits, Information including 1 evaluation Setting Treatment Setting Outpatient Care Visit Type Note Type Treatment Note - Subjective Identification Type Name Identification Medical Record Reconciled With Observations The tingling and numbness has gotten a lot better, I didn't even notice it last night Patient/Caregiver Good Compliance with Home Exercise Program - Objective Short Term Goals Within 6 weeks: 1. Patient will perform home tendon gliding and AROM exercises independently with 100% accuracy in form and adherence at least 5 days/week as reported or documented. [MET 06/18/25] 2. Patient will report a =50% reduction in frequency and severity of paresthesia in R hand during daily activities and sleep, as measured by subjective report and symptom log. [PROGRESSING 06/18/25] 3. 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 [PROGRESSING 06/18/25] Bull Gang Supervisor Goals Within 10 weeks: 1. 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 [ PROGRESSING 06/18/25] 2. Patient will perform all functional grasp, release, and manipulation tasks with RUE during simulated work tasks without symptom provocation and with normalized movement patterns. [PROGRESSING 06/18/25] 3. Patient will demonstrate full pain-free AROM of the R hand and wrist, including digit flexion and extension within functional limits for age and job demands. [ PROGRESSING 06/18/25] 4. Patient will increase perceived level of independence during ADL and IADL task as evidenced by a QuickDASH score of </= 20 for all sections. [ PROGRESSING 06/18/25] - Exercises 2 Descriptor Patient demonstrated subjective improvement of AROM in both composite and hook fists. Patient also completed figure-8 ball coordination activity, reporting mild tension but no pain or fatigue. Card shuffling with both regular and mini playing cards was performed, with patient noting some tension when pressing cards with index fingers but otherwise tolerating activity well and identifying the coordination aspect as the main challenge. In-hand manipulation was further challenged through the [employer] game with concurrent squeezing of a blue foam block in the ulnar digits; patient noted early fatigue and described this as a good intrinsic endurance challenge. Education provided to continue massage, icing as needed, and monitoring for tightness or blanching in digits. 1 Descriptor Flexbar (Green and progressed to Blue) 2x10 for the following on R hand: 1. wrist flex/ext 2. Radial/ulnar deviation 3. Pronation/supination FA massage with flexbar Patient also indep with upper extremity nerve glides for the ulnar, radial, and median nerves as well as Prayer and reverse prayer forearm stretches with good compliance reported at home. Tolerance Good Complexity Upgraded - Assessment Patient Response to Good Treatment Rehabilitation Excellent Potential Impairments ADLs,Body Mechanics,Coordination/Dexterity,Flexibility, Identified Functional Activities,Motor Function,Weakness,Range of Motion,Recreational Activities,Meaningful Activities, Stiffness Progress Towards Good Progress Goals Assessment of Improving Overall Progress Assessment of Patient continues to demonstrate gradual improvement in Improvement right hand mobility, coordination, and strength with appropriate challenge at progressed resistance levels. Notable carryover is observed in AROM gains and tolerance for dexterity activities, with no pain reproduction during exercises. Early fatigue remains a limiting factor in intrinsic musculature, particularly with sustained ulnar-sided loading. Mild blanching at finger joints suggests ongoing but improving intrinsic swelling, though global edema is largely resolved. Patient also reported a prior episode of extensive dorsal hand bruising following incidental hyperextension of the middle finger in the context of wrist extension. No current tenderness, pain, or functional limitation is present, and mechanism is unclear but appears to be resolving spontaneously without complication. Patient remains highly engaged and is making steady progress toward functional congregational. Continued OT is indicated to further progress strengthening, coordination, and intrinsic endurance for return to full work demands. Home Exercise Tendon glides, theraputty hand/finger/wrist, retrograde Program massage, extension/flexion with resistance, ADDED: upper extremity nerve glides for the ulnar, radial, and median nerves, prayer/reverse prayer stretches Reviewed with Goals,Progress Being Made,Home Exercise Program Patient/Caregiver Patient/Caregiver Good Understanding - Plan Therapy Continue with Current Program Recommendations Amount of Therapy 2-3 Months Recommended Comment 1-2x/week as needed Frequency of Once a Week Treatment Length of Session 45 Minutes Therapeutic Contents Active Range of Motion,Client Education,Functional Activities,Home Exercise Program,Education,Self-Care, Stretching/Flexibility Activities,Therapeutic Activities,Therapeutic Exercises,Modalities Modalities As Needed Types of Modalities Other Additional Types of ice bath, MHP, paraffin Modalities
--- NOTE | 2025-07-09 12:50 | OT.OP.TRT ---
Visit Care Team Role Provider Type Ruel Best DO Family Provider Physician Primary Care Provider Specialty: Family Practice Address: [address] [place] [address], [id number] Email: [email or web address] Attending Provider [employer] Consultant Referring Provider Specialty: Orthopedics Orthopedic Surgery Address: [address] [place] [address], [id number] Email: [email or web address] Occupational Therapy Treatment Note OT Outpatient Treatment Note - Adult Start: 06/04/25 08:31 Freq: Status: Active Protocol: Document 07/09/25 11:30 (Rec: 07/05/25 18:50 [id number]) OT Outpatient Adult Treatment Note Session Time Visit Start Date 07/09/25 Visit Start Time 11:30 Visit Stop Time 12:15 Visit Information Visit Number 8 of 12 Plan of Care Dates 06/04/25-08/27/25 Insurance no pre-auth;no copay/deductible;max 12 OT visits, Information including 1 evaluation Setting Treatment Setting Outpatient Care Visit Type Note Type Treatment Note - Subjective Identification Type Name Identification Medical Record Reconciled With Observations I've noticed my hand hurts a lot less when I am gripping although it seems to hurt now when I extend my wrist with my fingers flat ever since that bruise showed up Patient/Caregiver Good Compliance with Home Exercise Program - Objective Short Term Goals Within 6 weeks: 1. Patient will perform home tendon gliding and AROM exercises independently with 100% accuracy in form and adherence at least 5 days/week as reported or documented. [MET 06/18/25] 2. Patient will report a =50% reduction in frequency and severity of paresthesia in R hand during daily activities and sleep, as measured by subjective report and symptom log. [PROGRESSING 06/18/25] 3. Patient will improve R lens coater strength to =30 lbs to support return to modified work tasks without increased symptoms. [PROGRESSING 06/18/25] Nursing Home Goals Within 10 weeks: 1. 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 [ PROGRESSING 06/18/25] 2. Patient will perform all functional grasp, release, and manipulation tasks with RUE during simulated work tasks without symptom provocation and with normalized movement patterns. [PROGRESSING 06/18/25] 3. Patient will demonstrate full pain-free AROM of the R hand and wrist, including digit flexion and extension within functional limits for age and job demands. [ PROGRESSING 06/18/25] 4. Patient will increase perceived level of independence during ADL and IADL task as evidenced by a QuickDASH score of </= 20 for all sections. [ PROGRESSING 06/18/25] - Treatment 1 Descriptor Patient participated in dexterity and fine motor training tasks. Patient also engaged in the Dexteria ? Tap It!? activity for fine motor coordination and reaction time, achieving the following scores: Level 1 ? 17.96 sec, 96.9% accuracy; Level 2 ? 18.87 sec, 100% accuracy; Level 3 ? 20.20 sec, 96.9% accuracy; Level 4 ? 13.38 sec, 88.6% accuracy; Level 5 ? trial 1: 14.82 sec, 63.3% accuracy; trial 2: 10.53 sec, 100% accuracy. Patient reported needing to focus to sustain accuracy during higher levels, though was able to self-correct with repetition, good endurance and finger isolation as levels progressed. The tuning fork sequence was completed to address residual neural tension and fascial thickening at the volar wrist crease, as well as ongoing paresthesia in the right ring finger. Sequence targeted interosseous spaces with weighted fork placement for local tissue and intrinsic activation, and was followed by unweighted clearing passes for neural calming and integration. Patient tolerated the sequence well with no symptom provocation. Verbal Cues Min Cues Tolerance Excellent Exercises 2 Descriptor He completed the spring clip ladder using isolated digits completing 3 sets of 6 with digits 2-5, performing three sets with each finger. Accuracy diminished by the third set, with patient reporting the activity provided a strong challenge for both strength and dexterity. Assistance with setup and correction of clip placement was required, primarily when using the right ring and small fingers. Patient performed isometric wrist flexion and extension (1 set of 10 reps each direction) and weight-bearing through both upper extremities to target wrist proprioception, stretching, and strengthening. He required moderate verbal and visual cues for setup and form but demonstrated excellent return demonstration. Nerve glides for the ulnar, median, and radial nerves were reviewed, with patient reporting consistent tingling at the tip of the right ring finger but decreased frequency of full-hand numbness at night when glides are performed regularly. Side Right Visual Cues Mod Cues Verbal Cues Mod Cues Tolerance Excellent - Assessment Patient Response to Good Treatment Rehabilitation Excellent Potential Impairments ADLs,Body Mechanics,Coordination/Dexterity,Flexibility, Identified Functional Activities,Motor Function,Weakness,Range of Motion,Recreational Activities,Meaningful Activities, Stiffness Progress Towards Good Progress Goals Assessment of Improving Overall Progress Assessment of Patient demonstrates ongoing progress in strength, Improvement dexterity, and nerve symptom management. He reports less pain during gripping for work and functional tasks , indicating improved tolerance for daily activities. Nerve glides appear beneficial for reducing nocturnal paresthesia, though low-grade tingling persists at the tip of the right ring finger, suggesting residual ulnar nerve irritability or incomplete neural recovery. Dexterity challenges, particularly with isolated use of the ring and small fingers, remain evident as seen in spring clip activity where accuracy decreased with fatigue and setup required assistance. Performance on the Dexteria task indicates strong accuracy at lower levels with some decline in speed/precision at higher levels, though ability to self-correct and improve with repetition reflects good neuroplastic potential. Overall, patient is making steady gains in coordination , strength, and proprioception. Continued skilled OT is warranted to progress intrinsic and extrinsic hand strength, refine dexterity under fatigue, and reinforce neural mobility to reduce residual paresthesia and optimize functional hand use. Home Exercise Tendon glides, theraputty hand/finger/wrist, retrograde Program massage, extension/flexion with resistance, ADDED: upper extremity nerve glides for the ulnar, radial, and median nerves, prayer/reverse prayer stretches-UPDATED 07/09/25-WB on BUE at table with graded pressure, isometric wrist flex/ext Reviewed with Goals,Progress Being Made,Home Exercise Program Patient/Caregiver Patient/Caregiver Good Understanding - Plan Therapy Continue with Current Program Recommendations Amount of Therapy 2-3 Months Recommended Comment 1-2x/week as needed Frequency of Once a Week Treatment Length of Session 45 Minutes Therapeutic Contents Active Range of Motion,Client Education,Functional Activities,Home Exercise Program,Education,Self-Care, Stretching/Flexibility Activities,Therapeutic Activities,Therapeutic Exercises,Modalities Modalities As Needed Types of Modalities Other Additional Types of ice bath, MHP, paraffin Modalities
--- NOTE | 2025-08-06 12:49 | OT.OP.TRT ---
Visit Care Team Role Provider Type Ruel Best DO Family Provider Physician Primary Care Provider Specialty: Family Practice Address: [address] [place] [address], [id number] Email: [email or web address] Attending Provider Advanced [employer] Pipeman Referring Provider Specialty: Orthopedics Orthopedic Surgery Address: [address] [place] [address], [id number] Email: [email or web address] Occupational Therapy Treatment Note OT Outpatient Treatment Note - Adult Start: 06/04/25 08:31 Freq: Status: Active Protocol: Document 08/06/25 11:35 (Rec: 08/06/25 11:36 [id number]) OT Outpatient Adult Treatment Note Session Time Visit Start Date 08/06/25 Visit Start Time 11:30 Visit Stop Time 12:15 Visit Information Visit Number 9 of 12 Plan of Care Dates 06/04/25-08/27/25 Insurance no pre-auth;no copay/deductible;max 12 OT visits, Information including 1 evaluation Setting Treatment Setting Outpatient Care Visit Type Note Type Progress Note - Subjective Identification Type Name Identification Medical Record Reconciled With Observations The numbness has been so much better Patient/Caregiver Good Compliance with Home Exercise Program - Objective Objective Quick Dash: 18 (34.1 on eval) Measurements W: 18.75 (56.3 on eval), S: 12.5 (31.3 on eval) Welt Butter Hand Strength (Average of 3 trials): (mistakenly noted in eval as lb, measurements on eval were measured in kg for respite worker in eval and today) 06/04/25 (on eval)-R: 19.7 kg () L: 62 kg (62/ 62/62) 08/06/25 R: Avg 42kg (44, 44 painful at wrist, 38) L: Avg 64.2kg (65, 66, 62) 3-Jaw Kobe Pinch (Average of 3 trials): 06/04/25 R: 17.3 lbs (1816/18) ? L: 31.3 lbs (3032/32) 08/06/25 R: Avg 20.3lbs ( 21, 19, 21 ); L: Avg 31.3 (30 , 32, 32) AROM Measurements: Left Hand: 06/04/25 MCPs: 1st: 83?, 2nd: 92?, 3rd: 90?, 4th: 91? 08/06/25 MCPs 1st: 96?, 2nd: 104?, 3rd: 102?, 4th: 96? 06/04/25 PIPs: 1st: 110?, 2nd: 108?, 3rd: 108?, 4th: 102? 08/06/25 PIPs: 1st:108 ?, 2nd: 106?, 3rd: 112?, 4th: 102 06/04/25 DIPs: 1st: 82?, 2nd: 90?, 3rd: 80?, 4th: 84? 08/06/35 1st: 74?, 2nd: 90?, 3rd: 86?, 4th: 89 Right Hand: 06/04/25 MCPs: 1st: 94?, 2nd: 80?, 3rd: 72?, 4th: 70? 08/06/25 MCPs 1st: 98?, 2nd: 94?, 3rd: 84?, 4th: 88 06/04/25 PIPs: 1st: 96?, 2nd: 96?, 3rd: 100?, 4th: 94? 08/06/25 PIPs 1st: 108?, 2nd: 108?, 3rd: 112?, 4th: 106? 06/04/25 DIPs: 1st: 62?, 2nd: 80?, 3rd: 60?, 4th: 64? 08/06/25 DIPs: 1st: 90?, 2nd: 92?, 3rd: 80?, 4th: 80 Short Term Goals Within 6 weeks: 1. Patient will perform home tendon gliding and AROM exercises independently with 100% accuracy in form and adherence at least 5 days/week as reported or documented. [MET 06/18/25] 2. Patient will report a =50% reduction in frequency and severity of paresthesia in R hand during daily activities and sleep, as measured by subjective report and symptom log. [MET 08/06/25] 3. Patient will improve R respite worker strength to =30 kg to support return to modified work tasks without increased symptoms. [PROGRESSING 08/06/25] Group Home Goals Within 10 weeks: 1. 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 [ PROGRESSING 06/18/25] 2. Patient will perform all functional grasp, release, and manipulation tasks with RUE during simulated work tasks without symptom provocation and with normalized movement patterns. [MET 08/06/25] 3. Patient will demonstrate full pain-free AROM of the R hand and wrist, including digit flexion and extension within functional limits for age and job demands. [MET 08/06/25] 4. Patient will increase perceived level of independence during ADL and IADL task as evidenced by a QuickDASH score of </= 20 for all sections. [ PROGRESSING 08/06/25] - Treatment 1 Descriptor Patient was seen for reassessment following a three- week lapse in visits due to scheduling conflicts and vacation. He reports fair compliance with his home exercise program, noting he has not consistently performed theraputty exercises but continues to use his right hand as normally as possible in daily activities and has resumed skateboarding and most hobbies with only slight limitations and no pain. No visible swelling was observed today. Objective measures were repeated, including respite worker and pinch strength, AROM, and QuickDASH. QuickDASH score improved to 18 (from 34.1 at evaluation), with work subscale 18.75 (from 56.3) and symptom subscale 12.5 (from 31.3). Welt Butter Hand strength improved significantly, with right hand average now 42 kg (from 19.7 kg at evaluation), compared to left hand 64.2 kg. Three-jaw kobe pinch strength improved modestly to right 20.3 lbs (from 17.3 lbs), with left unchanged at 31.3 lbs. AROM improved bilaterally, with right hand MCPs, PIPs, and DIPs all demonstrating increased degrees of motion, now within functional limits compared to left. Patient verbalized continued understanding of HEP and demonstrated good functional use of the right hand during daily tasks. - Assessment Patient Response to Good Treatment Rehabilitation Excellent Potential Impairments ADLs,Body Mechanics,Coordination/Dexterity,Flexibility, Identified Functional Activities,Motor Function,Weakness,Range of Motion,Recreational Activities,Meaningful Activities, Stiffness Progress Towards Good Progress Goals Assessment of Improving Overall Progress Assessment of Patient demonstrates excellent progress since Improvement evaluation, with significant improvements in functional scores, respite worker and pinch strength, and AROM. He now reports no pain with daily use, minimal swelling, and ability to resume most hobbies and occupational tasks. Strength deficits remain present, with right hand respite worker averaging approximately 22 kg lower than the left, representing a clinically meaningful variance in dominant versus non-dominant function. Pinch strength has improved but remains below baseline of the unaffected side. AROM is now within normal limits and symmetric bilaterally, indicating resolution of stiffness. Patient continues to progress toward goals, but ongoing strengthening is indicated to address residual respite worker and pinch deficits and to support return to full, unrestricted use of the right hand in higher- level occupational and recreational demands. Continuation of current plan of care with emphasis on strengthening is recommended. Home Exercise Tendon glides, theraputty hand/finger/wrist, retrograde Program massage, extension/flexion with resistance, ADDED: upper extremity nerve glides for the ulnar, radial, and median nerves, prayer/reverse prayer stretches-UPDATED 07/09/25-WB on BUE at table with graded pressure, isometric wrist flex/ext Reviewed with Goals,Progress Being Made,Home Exercise Program Patient/Caregiver Patient/Caregiver Good Understanding - Plan Therapy Continue with Current Program Recommendations Amount of Therapy 2-3 Months Recommended Comment 1-2x/week as needed Frequency of Once a Week Treatment Length of Session 45 Minutes Therapeutic Contents Active Range of Motion,Client Education,Functional Activities,Home Exercise Program,Education,Self-Care, Stretching/Flexibility Activities,Therapeutic Activities,Therapeutic Exercises,Modalities Modalities As Needed Types of Modalities Other Additional Types of ice bath, MHP, paraffin Modalities
--- NOTE | 2025-08-27 12:59 | OT.OP.DC ---
Visit Care Team Role Provider Type Ruel Best DO Family Provider Physician Primary Care Provider Address: [address] [place] [address], [id number] Email: [email or web address] Hoa Rojas PA-C Attending Provider Advanced Shuttle Van Driver Referring Provider Address: [address] [place] [address], [id number] Email: [email or web address] OT Outpatient Adult Evaluation Start: 06/04/25 08:31 Freq: Status: Active Protocol: Document 06/04/25 09:45 (Rec: 06/04/25 08:48 [id number]) General Information - Adult Visit Information Visit Number 1 of 12 Plan of Care Dates 06/04/25- Insurance no pre-auth;no copay/deductible;max 12 OT visits, Information including 1 evaluation, pe Session Time Visit Start Date 06/04/25 Visit Start Time 09:45 Visit Stop Time 10:30 Setting Treatment Setting Outpatient Care Visit Type Note Type Initial Evaluation Referral Referring Physician Hoa Rojas PA-C Reason for Referral right 3rd and 4th metacarpal fractures Identification Identification Yes Confirmed Identification EMR Confirmed By Social Information Social History I have noticed my hand and fingers will start to tingle mostly at night, but just in the last week or so Patient Questionnaires Quick Dash- Upper Extremity Quick Dash UE Score 34.1 Quick Dash- Work and Sports Modules Quick Dash W&S Score W: 56.3, S: 31.3 Quick Dash Work and 40 to 59% Impaired (Score 40-59) Sport Impairment Goals Objective Measurements Objective Rug Designer Strength (Average of 3 trials): Measurements ? R: 19.7 lbs () ? L: 62 lbs (6262/62) 3-Jaw Kobe Pinch (Average of 3 trials): ? R: 17.3 lbs (1618) ? L: 31.3 lbs (/32) AROM Measurements: Left Hand MCPs: 1st: 83?, 2nd: 92?, 3rd: 90?, 4th: 91? PIPs: 1st: 110?, 2nd: 108?, 3rd: 108?, 4th: 102? DIPs: 1st: 82?, 2nd: 90?, 3rd: 80?, 4th: 84? Right Hand MCPs: 1st: 94?, 2nd: 80?, 3rd: 72?, 4th: 70? PIPs: 1st: 96?, 2nd: 96?, 3rd: 100?, 4th: 94? DIPs: 1st: 62?, 2nd: 80?, 3rd: 60?, 4th: 64? Otenies significant pain but reports general stiffness and tightness in hand with use. Treatment Treatment Patient was educated on the physiology of fracture healing and potential causes of current paresthesia symptoms, which may be related to prolonged immobilization or increased activity demands. Discussion included expected progression through therapy, potential use of ice or heat modalities for inflammation, stiffness, or discomfort, and strategies for monitoring symptom provocation. Patient was instructed in a home exercise program including gentle active range of motion exercises for the wrist and digits, tendon gliding exercises, and thumb opposition with use of the left hand to assist as needed. Emphasis was placed on remaining within a pain-free range and avoiding overexertion. 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 Patient demonstrated good understanding and return demonstration of the home program. Short Term Goals Short Term Goals Within 6 weeks: 1. Patient will perform home tendon gliding and AROM exercises independently with 100% accuracy in form and adherence at least 5 days/week as reported or documented. 2. Patient will report a =50% reduction in frequency and severity of paresthesia in R hand during daily activities and sleep, as measured by subjective report and symptom log. 3. Patient will improve R binding folder machine strength to =30 lbs to support return to modified work tasks without increased symptoms. Longterm Goals Longterm Goals Within 10 weeks: 1. 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 2. Patient will perform all functional grasp, release, and manipulation tasks with RUE during simulated work tasks without symptom provocation and with normalized movement patterns. 3. Patient will demonstrate full pain-free AROM of the R hand and wrist, including digit flexion and extension within functional limits for age and job demands. 4. Patient will increase perceived level of independence during ADL and IADL task as evidenced by a QuickDASH score of </= 20 for all sections. Assessment/Plan Assessment Patient Response Good Rehabilitation Excellent Potential Impairments ADLs,Body Mechanics,Coordination/Dexterity,Flexibility, Identified Functional Activities,Motor Function,Weakness,Range of Motion,Recreational Activities,Meaningful Activities, Stiffness Treatment Assessment 35 year old RHD male referred to occupational therapy by Hoa Rojas PA-C after a ground level fall while skateboarding on 04/01/25. Pt presents today at 9 weeks post R 3rd and 4th metacarpal fractures with residual stiffness and moderate weakness of the R hand. Objective deficits include significant reductions in binding folder machine and pinch strength compared to the L hand, and mild to moderate ROM limitations primarily in the 3rd and 4th digits. Paresthesia in the ulnar nerve distribution has emerged in the last week, potentially related to post-immobilization nerve irritation or cumulative stress with return to activity. Patient is highly motivated and demonstrates good insight and carryover. Will continue to benefit from skilled OT for progression of AROM, strengthening, edema/paresthesia management, and functional task retraining for return to full work participation. Home Exercise introduced tendon glides, AROM stretches Program Reviewed with Goals,Progress Being Made,Home Exercise Program Patient Patient Good Understanding Plan Length of treatment 12 (weeks) Plan of Care Start 06/04/25 Date Plan of Care End 08/27/25 Date Comment 1-2x week as needed Treatment Frequency Once a Week Treatment Duration 45 Minutes Therapeutic Contents Active Range of Motion,Client Education,Functional Activities,Home Exercise Program,Education,Self-Care, Stretching/Flexibility Activities,Therapeutic Activities,Therapeutic Exercises,Modalities Modalities As Needed Types of Modalities Other Additional Types of ice bath, MHP, paraffin Modalities Patient Instruction Home Exercise Program,Plan of Care,Questions/Concerns Patient Continue with Current Program Recommendations Functional Wrist/Hand Scan Hand Side Sensory Assessment Sensory Profile2 OT Outpatient Treatment Note - Adult Start: 06/04/25 08:31 Freq: Status: Active Protocol: Document 08/27/25 11:30 (Rec: 08/16/25 09:28 [id number]) OT Outpatient Adult Treatment Note Session Time Visit Start Date 08/27/25 Visit Start Time 11:30 Visit Stop Time 12:15 Visit Information Visit Number 10 of 12 Plan of Care Dates 06/04/25-08/27/25 Insurance no pre-auth;no copay/deductible;max 12 OT visits, Information including 1 evaluation Setting Treatment Setting Outpatient Care Visit Type Note Type Discharge Summary - Subjective Identification Type Name Identification Medical Record Reconciled With Observations I feel like I haven't been doing a good job of doing my exercises Patient/Caregiver Good Compliance with Home Exercise Program - Objective Objective Tinel's sign (+), Phalen's test (+) Measurements Quick Dash: 18 (34.1 on eval) W: 18.75 (56.3 on eval), S: 12.5 (31.3 on eval) Rug Designer Strength (Average of 3 trials): (mistakenly noted in eval as lb, measurements on eval were measured in kg for binding folder machine in eval and today) 06/04/25 (on eval)-R: 19.7 kg (//18) L: 62 kg (62/ 62/62) 08/06/25 R: Avg 42kg (44, 44 painful at wrist, 38) L: Avg 64.2kg (65, 66, 62) 3-Jaw Kobe Pinch (Average of 3 trials): 06/04/25 R: 17.3 lbs (18/16/18) ? L: 31.3 lbs (30/32/32) 08/06/25 R: Avg 20.3lbs ( 21, 19, 21 ); L: Avg 31.3 (30 , 32, 32) AROM Measurements: Left Hand: 06/04/25 MCPs: 1st: 83?, 2nd: 92?, 3rd: 90?, 4th: 91? 08/06/25 MCPs 1st: 96?, 2nd: 104?, 3rd: 102?, 4th: 96? 06/04/25 PIPs: 1st: 110?, 2nd: 108?, 3rd: 108?, 4th: 102? 08/06/25 PIPs: 1st:108 ?, 2nd: 106?, 3rd: 112?, 4th: 102 06/04/25 DIPs: 1st: 82?, 2nd: 90?, 3rd: 80?, 4th: 84? 08/06/35 1st: 74?, 2nd: 90?, 3rd: 86?, 4th: 89 Right Hand: 06/04/25 MCPs: 1st: 94?, 2nd: 80?, 3rd: 72?, 4th: 70? 08/06/25 MCPs 1st: 98?, 2nd: 94?, 3rd: 84?, 4th: 88 06/04/25 PIPs: 1st: 96?, 2nd: 96?, 3rd: 100?, 4th: 94? 08/06/25 PIPs 1st: 108?, 2nd: 108?, 3rd: 112?, 4th: 106? 06/04/25 DIPs: 1st: 62?, 2nd: 80?, 3rd: 60?, 4th: 64? 08/06/25 DIPs: 1st: 90?, 2nd: 92?, 3rd: 80?, 4th: 80 Short Term Goals Within 6 weeks: 1. Patient will perform home tendon gliding and AROM exercises independently with 100% accuracy in form and adherence at least 5 days/week as reported or documented. [MET 06/18/25] 2. Patient will report a =50% reduction in frequency and severity of paresthesia in R hand during daily activities and sleep, as measured by subjective report and symptom log. [MET 08/06/25] 3. Patient will improve R binding folder machine strength to =30 kg to support return to modified work tasks without increased symptoms. [MET 08/27/25] Telephony Engineer Goals Within 10 weeks: 1. 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 [ NOT MET 08/27/25] 2. Patient will perform all functional grasp, release, and manipulation tasks with RUE during simulated work tasks without symptom provocation and with normalized movement patterns. [MET 08/06/25] 3. Patient will demonstrate full pain-free AROM of the R hand and wrist, including digit flexion and extension within functional limits for age and job demands. [MET 08/06/25] 4. Patient will increase perceived level of independence during ADL and IADL task as evidenced by a QuickDASH score of </= 20 for all sections. [MET 08/27] - Treatment 1 Descriptor Patient was seen today for reassessment and review of progress toward established goals following right 3rd and 4th metacarpal fractures sustained on 04/01/25. Objective measures and functional status were reviewed in conjunction with patient report. Patient reports full resolution of pain related to the fractures and ability to complete all functional and work-related tasks independently. He notes a recent increase in numbness and tingling in the right hand, particularly following several consecutive workdays and a recent sailing trip that required sustained gripping and wrist use. Clinical testing today revealed positive Tinel?s and Phalen?s signs, consistent with possible carpal tunnel involvement. Patient was educated on carpal tunnel management strategies including activity modification, nighttime wrist positioning, and continuation of nerve gliding exercises. Discussion was held differentiating current nerve symptoms from previous post-fracture recovery. Patient reports overall satisfaction with progress and feels functionally ready for discharge from therapy. - Assessment Patient Response to Good Treatment Rehabilitation Excellent Potential Impairments ADLs,Body Mechanics,Coordination/Dexterity,Flexibility, Identified Functional Activities,Motor Function,Weakness,Range of Motion,Recreational Activities,Meaningful Activities, Stiffness Progress Towards Good Progress Goals Assessment of Improving Overall Progress Assessment of 35-year-old right-hand dominant male who sustained Improvement right 3rd and 4th metacarpal fractures after a skateboard fall on 04/01/25. At initial evaluation (06/04), he presented with significant swelling, stiffness , and weakness in the right hand and limited composite and hook fist formation. Sensory symptoms included intermittent tingling in the middle, ring, and small fingers. Skilled OT intervention included progressive AROM, tendon gliding, edema management, therapeutic strengthening with putty and Flexbar, coordination and dexterity retraining, proprioceptive and sensory activities, and use of tuning fork and massage for fascial mobility and neural desensitization. Education was provided throughout on activity modification, home exercise adherence, and symptom management. Since initiation of therapy, the patient has demonstrated excellent progress. Objective measures show substantial gains in binding folder machine strength from 19.7 kg to 42 kg, improved pinch strength from 17.3 lbs to 20.3 lbs, and full, pain-free AROM of the right hand and wrist. QuickDASH scores improved from 34.1 to 18, reflecting increased perceived independence and reduction in functional limitation. All short-term and long-term goals were met except for full binding folder machine strength symmetry, which is functionally adequate for his daily and occupational needs. 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 Mild recurrent paresthesia is likely attributable to increased hand use and potential early carpal tunnel irritation rather than fracture-related deficits. The patient was educated on conservative carpal tunnel management and advised to seek re-evaluation if symptoms persist or worsen. At this time, he has achieved functional recovery from his metacarpal fractures and is appropriate for discharge from occupational therapy. Home Exercise Tendon glides, theraputty hand/finger/wrist, retrograde Program massage, extension/flexion with resistance, ADDED: upper extremity nerve glides for the ulnar, radial, and median nerves, prayer/reverse prayer stretches-UPDATED 07/09/25-WB on BUE at table with graded pressure, isometric wrist flex/ext Reviewed with Goals,Progress Being Made,Home Exercise Program Patient/Caregiver Patient/Caregiver Good Understanding - Plan Therapy Discharge to Home Exercise Program Recommendations Amount of Therapy No Further Therapy Recommended Comment 1-2x/week as needed Frequency of No Further Therapy Treatment Therapeutic Contents Active Range of Motion,Client Education,Functional Activities,Home Exercise Program,Education,Self-Care, Stretching/Flexibility Activities,Therapeutic Activities,Therapeutic Exercises,Modalities Modalities As Needed Types of Modalities Other Additional Types of ice bath, MHP, paraffin Modalities
--- NOTE | 2025-08-28 11:02 | OT.OPPOC ---
Physical, Occupational & Speech Therapy At [facility] Ciaran Garcia [id number] 1990 Visit Care Team Role Provider Type Ruel Best DO Family Provider Physician Primary Care Provider Address: [address] [place] [address], [id number] Hoa Rojas PA-C Attending Provider Advanced Control Clerk Referring Provider Address: [address] [place] [address], [id number] UPDATED Occupational Therapy Plan of Care OT Outpatient Adult Evaluation Start: 06/04/25 08:31 Freq: Status: Active Protocol: Document 06/04/25 09:45 (Rec: 06/04/25 08:48 [id number]) General Information - Adult Visit Information Visit Number 1 of 12 Plan of Care Dates 06/04/25-09/19/25 Insurance no pre-auth;no copay/deductible;max 12 OT visits, Information including 1 evaluation, pe Session Time Visit Start Date 06/04/25 Visit Start Time 09:45 Visit Stop Time 10:30 Setting Treatment Setting Outpatient Care Visit Type Note Type Initial Evaluation Referral Referring Physician Hoa Rojas PA-C Reason for Referral right 3rd and 4th metacarpal fractures Identification Identification Yes Confirmed Identification EMR Confirmed By Social Information Social History I have noticed my hand and fingers will start to tingle mostly at night, but just in the last week or so Patient Questionnaires Quick Dash- Upper Extremity Quick Dash UE Score 34.1 Quick Dash- Work and Sports Modules Quick Dash W&S Score W: 56.3, S: 31.3 Quick Dash Work and 40 to 59% Impaired (Score 40-59) Sport Impairment Goals Objective Measurements Objective Oyster Planter Strength (Average of 3 trials): Measurements ? R: 19.7 lbs () ? L: 62 lbs (62/62) 3-Jaw Kobe Pinch (Average of 3 trials): ? R: 17.3 lbs (181618) ? L: 31.3 lbs (3032/32) AROM Measurements: Left Hand MCPs: 1st: 83?, 2nd: 92?, 3rd: 90?, 4th: 91? PIPs: 1st: 110?, 2nd: 108?, 3rd: 108?, 4th: 102? DIPs: 1st: 82?, 2nd: 90?, 3rd: 80?, 4th: 84? Right Hand MCPs: 1st: 94?, 2nd: 80?, 3rd: 72?, 4th: 70? PIPs: 1st: 96?, 2nd: 96?, 3rd: 100?, 4th: 94? DIPs: 1st: 62?, 2nd: 80?, 3rd: 60?, 4th: 64? Otenies significant pain but reports general stiffness and tightness in hand with use. Treatment Treatment Patient was educated on the physiology of fracture healing and potential causes of current paresthesia symptoms, which may be related to prolonged immobilization or increased activity demands. Discussion included expected progression through therapy, potential use of ice or heat modalities for inflammation, stiffness, or discomfort, and strategies for monitoring symptom provocation. Patient was instructed in a home exercise program including gentle active range of motion exercises for the wrist and digits, tendon gliding exercises, and thumb opposition with use of the left hand to assist as needed. Emphasis was placed on remaining within a pain-free range and avoiding overexertion. 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 Patient demonstrated good understanding and return demonstration of the home program. Short Term Goals Short Term Goals Within 6 weeks: 1. Patient will perform home tendon gliding and AROM exercises independently with 100% accuracy in form and adherence at least 5 days/week as reported or documented. 2. Patient will report a =50% reduction in frequency and severity of paresthesia in R hand during daily activities and sleep, as measured by subjective report and symptom log. 3. Patient will improve R dispersion mixer strength to =30 lbs to support return to modified work tasks without increased symptoms. Production Consultant Goals Detention Goals Within 10 weeks: 1. 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 2. Patient will perform all functional grasp, release, and manipulation tasks with RUE during simulated work tasks without symptom provocation and with normalized movement patterns. 3. Patient will demonstrate full pain-free AROM of the R hand and wrist, including digit flexion and extension within functional limits for age and job demands. 4. Patient will increase perceived level of independence during ADL and IADL task as evidenced by a QuickDASH score of </= 20 for all sections. Assessment/Plan Assessment Patient Response Good Rehabilitation Excellent Potential Impairments ADLs,Body Mechanics,Coordination/Dexterity,Flexibility, Identified Functional Activities,Motor Function,Weakness,Range of Motion,Recreational Activities,Meaningful Activities, Stiffness Treatment Assessment 35 year old RHD male referred to occupational therapy by Hoa Rojas PA-C after a ground level fall while skateboarding on 04/01/25. Pt presents today at 9 weeks post R 3rd and 4th metacarpal fractures with residual stiffness and moderate weakness of the R hand. Objective deficits include significant reductions in dispersion mixer and pinch strength compared to the L hand, and mild to moderate ROM limitations primarily in the 3rd and 4th digits. Paresthesia in the ulnar nerve distribution has emerged in the last week, potentially related to post-immobilization nerve irritation or cumulative stress with return to activity. Patient is highly motivated and demonstrates good insight and carryover. Will continue to benefit from skilled OT for progression of AROM, strengthening, edema/paresthesia management, and functional task retraining for return to full work participation. Home Exercise introduced tendon glides, AROM stretches Program Reviewed with Goals,Progress Being Made,Home Exercise Program Patient Patient Good Understanding Plan Length of treatment 12 (weeks) Plan of Care Start 06/04/25 Date Plan of Care End 09/19/25 Date Comment 1-2x week as needed Treatment Frequency Once a Week Treatment Duration 45 Minutes Therapeutic Contents Active Range of Motion,Client Education,Functional Activities,Home Exercise Program,Education,Self-Care, Stretching/Flexibility Activities,Therapeutic Activities,Therapeutic Exercises,Modalities Modalities As Needed Types of Modalities Other Additional Types of ice bath, MHP, paraffin Modalities Patient Instruction Home Exercise Program,Plan of Care,Questions/Concerns Patient Continue with Current Program Recommendations Functional Wrist/Hand Scan Hand Side Sensory Assessment Sensory Profile2 OT Outpatient Treatment Note - Adult Start: 06/04/25 08:31 Freq: Status: Active Protocol: Document 08/27/25 11:30 (Rec: 08/16/25 09:28 [id number]) OT Outpatient Adult Treatment Note Session Time Visit Start Date 08/27/25 Visit Start Time 11:30 Visit Stop Time 12:15 Visit Information Visit Number 10 of 12 Plan of Care Dates 06/04/25-09/19/25 Insurance no pre-auth;no copay/deductible;max 12 OT visits, Information including 1 evaluation Setting Treatment Setting Outpatient Care Visit Type Note Type Treatment Note General Information General Information requesting POC date extension to 09/19/25 to accommodate missed visits with 2 visits remaining. - Subjective Identification Type Name Identification Medical Record Reconciled With Observations I feel like I haven't been doing a good job of doing my exercises Patient/Caregiver Good Compliance with Home Exercise Program - Objective Objective Tinel's sign (+), Phalen's test (+) Measurements Quick Dash: 18 (34.1 on eval) W: 18.75 (56.3 on eval), S: 12.5 (31.3 on eval) Oyster Planter Strength (Average of 3 trials): (mistakenly noted in eval as lb, measurements on eval were measured in kg for dispersion mixer in eval and today) 06/04/25 (on eval)-R: 19.7 kg (/) L: 62 kg (62/ 62/62) 08/06/25 R: Avg 42kg (44, 44 painful at wrist, 38) L: Avg 64.2kg (65, 66, 62) 3-Jaw Kobe Pinch (Average of 3 trials): 06/04/25 R: 17.3 lbs (18//18) ? L: 31.3 lbs (30/32/32) 08/06/25 R: Avg 20.3lbs ( 21, 19, 21 ); L: Avg 31.3 (30 , 32, 32) AROM Measurements: Left Hand: 06/04/25 MCPs: 1st: 83?, 2nd: 92?, 3rd: 90?, 4th: 91? 08/06/25 MCPs 1st: 96?, 2nd: 104?, 3rd: 102?, 4th: 96? 06/04/25 PIPs: 1st: 110?, 2nd: 108?, 3rd: 108?, 4th: 102? 08/06/25 PIPs: 1st:108 ?, 2nd: 106?, 3rd: 112?, 4th: 102 06/04/25 DIPs: 1st: 82?, 2nd: 90?, 3rd: 80?, 4th: 84? 9/30/35 1st: 74?, 2nd: 90?, 3rd: 86?, 4th: 89 Right Hand: 06/04/25 MCPs: 1st: 94?, 2nd: 80?, 3rd: 72?, 4th: 70? 08/06/25 MCPs 1st: 98?, 2nd: 94?, 3rd: 84?, 4th: 88 06/04/25 PIPs: 1st: 96?, 2nd: 96?, 3rd: 100?, 4th: 94? 08/06/25 PIPs 1st: 108?, 2nd: 108?, 3rd: 112?, 4th: 106? 06/04/25 DIPs: 1st: 62?, 2nd: 80?, 3rd: 60?, 4th: 64? 08/06/25 DIPs: 1st: 90?, 2nd: 92?, 3rd: 80?, 4th: 80 Short Term Goals Within 6 weeks: 1. Patient will perform home tendon gliding and AROM exercises independently with 100% accuracy in form and adherence at least 5 days/week as reported or documented. [MET 06/18/25] 2. Patient will report a =50% reduction in frequency and severity of paresthesia in R hand during daily activities and sleep, as measured by subjective report and symptom log. [MET 08/06/25] 3. Patient will improve R dispersion mixer strength to =30 kg to support return to modified work tasks without increased symptoms. [MET 08/27/25] Detention Goals Within 10 weeks: 1. 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 [ PROGRESSING 08/27/25] 2. Patient will perform all functional grasp, release, and manipulation tasks with RUE during simulated work tasks without symptom provocation and with normalized movement patterns. [MET 08/06/25] 3. Patient will demonstrate full pain-free AROM of the R hand and wrist, including digit flexion and extension within functional limits for age and job demands. [MET 08/06/25] 4. Patient will increase perceived level of independence during ADL and IADL task as evidenced by a QuickDASH score of </= 20 for all sections. [MET 08/27] - Treatment 1 Descriptor Patient was seen today for reassessment and review of progress toward established goals following right 3rd and 4th metacarpal fractures sustained on 04/01/25. Objective measures and functional status were reviewed in conjunction with patient report. Patient reports full resolution of pain related to the fractures and ability to complete all functional and work-related tasks independently. He notes a recent increase in numbness and tingling in the right hand, particularly following several consecutive workdays and a recent sailing trip that required sustained gripping and wrist use. Clinical testing today revealed positive Tinel?s and Phalen?s signs, consistent with possible carpal tunnel involvement. Patient was educated on carpal tunnel management strategies including activity modification, nighttime wrist positioning, and continuation of nerve gliding exercises. Discussion was held differentiating current nerve symptoms from previous post-fracture recovery. Patient reports overall satisfaction with progress. - Assessment Patient Response to Good Treatment Rehabilitation Excellent Potential Impairments ADLs,Body Mechanics,Coordination/Dexterity,Flexibility, Identified Functional Activities,Motor Function,Weakness,Range of Motion,Recreational Activities,Meaningful Activities, Stiffness Progress Towards Good Progress Goals Assessment of Improving Overall Progress Assessment of Since initiation of therapy on 06/04/25, he has made Improvement significant functional progress with resolution of pain , normalization of AROM, and marked improvement in dispersion mixer and pinch strength. QuickDASH scores have improved from 34.1 at evaluation to 18, reflecting meaningful gains in independence and functional performance. Despite these improvements, measurable strength deficits persist in the right hand, with dispersion mixer strength averaging 42 kg compared to 64.2 kg on the left. The patient also continues to report intermittent paresthesia in the right hand, now primarily consistent with mild carpal tunnel irritation following increased workload and repetitive gripping activities. Patient demonstrates full participation and understanding of therapeutic education and home programming but admits inconsistent adherence to resistive strengthening exercises. Continued skilled OT intervention remains indicated to address ongoing strength asymmetry, improve intrinsic endurance, and reduce neural irritability through progressive strengthening, proprioceptive re-education, and activity modification strategies. Patient is highly motivated and expected to make continued gains toward remaining long-term goals with ongoing treatment. Home Exercise Tendon glides, theraputty hand/finger/wrist, retrograde Program massage, extension/flexion with resistance, ADDED: upper extremity nerve glides for the ulnar, radial, and median nerves, prayer/reverse prayer stretches-UPDATED 07/09/25-WB on BUE at table with graded pressure, isometric wrist flex/ext Reviewed with Goals,Progress Being Made,Home Exercise Program Patient/Caregiver Patient/Caregiver Good Understanding - Plan Therapy Continue with Current Program Recommendations Amount of Therapy 3-4 Months Recommended Comment 1-2x/week as needed Frequency of Once a Week Treatment Length of Session 45 Minutes Treatment Emphasis test dispersion mixer/pinch strength, review education Next Session Therapeutic Contents Active Range of Motion,Client Education,Functional Activities,Home Exercise Program,Education,Self-Care, Stretching/Flexibility Activities,Therapeutic Activities,Therapeutic Exercises,Modalities Modalities As Needed Types of Modalities Other Additional Types of ice bath, MHP, paraffin Modalities Electronically Signed by: Ana Hickman OT 08/28/25 [id number] If you are in agreement with this Plan of Care, please return a signed and dated copy. I have reviewed this Plan of Care and certify that the skilled therapy services above are required to meet the patient?s needs. Physician Signature Date Printed Name and Credentials Clinical Instructor Signature Printed Name and Credentials
--- NOTE | 2025-09-18 12:46 | OT.OP.DC ---
Visit Care Team Role Provider Type Ruel Best DO Family Provider Physician Primary Care Provider Address: [address] [place] [address], [id number] Email: [email or web address] Attending Provider Advanced Last Putter Away Referring Provider Address: [address] [place] [address], [id number] Email: [email or web address] Outpatient OT Outpatient Adult Evaluation Start: 06/04/25 08:31 Freq: Status: Active Protocol: Document 06/04/25 09:45 (Rec: 06/04/25 08:48 [id number]) General Information - Adult Visit Information Visit Number 1 of 12 Plan of Care Dates 06/04/25- Insurance no pre-auth;no copay/deductible;max 12 OT visits, Information including 1 evaluation, pe Session Time Visit Start Date 06/04/25 Visit Start Time 09:45 Visit Stop Time 10:30 Setting Treatment Setting Outpatient Care Visit Type Note Type Initial Evaluation Referral Referring Physician Hoa Rojas PA-C Reason for Referral right 3rd and 4th metacarpal fractures Identification Identification Yes Confirmed Identification EMR Confirmed By Social Information Social History I have noticed my hand and fingers will start to tingle mostly at night, but just in the last week or so Patient Questionnaires Quick Dash- Upper Extremity Quick Dash UE Score 34.1 Quick Dash- Work and Sports Modules Quick Dash W&S Score W: 56.3, S: 31.3 Quick Dash Work and 40 to 59% Impaired (Score 40-59) Sport Impairment Goals Objective 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 R: 19.7 lbs () ? L: 62 lbs (6262/62) 3-Jaw Kobe Pinch (Average of 3 trials): ? R: 17.3 lbs (1618) ? L: 31.3 lbs (/32) AROM Measurements: Left Hand MCPs: 1st: 83?, 2nd: 92?, 3rd: 90?, 4th: 91? PIPs: 1st: 110?, 2nd: 108?, 3rd: 108?, 4th: 102? DIPs: 1st: 82?, 2nd: 90?, 3rd: 80?, 4th: 84? Right Hand MCPs: 1st: 94?, 2nd: 80?, 3rd: 72?, 4th: 70? PIPs: 1st: 96?, 2nd: 96?, 3rd: 100?, 4th: 94? DIPs: 1st: 62?, 2nd: 80?, 3rd: 60?, 4th: 64? Otenies significant pain but reports general stiffness and tightness in hand with use. Treatment Treatment Patient was educated on the physiology of fracture healing and potential causes of current paresthesia symptoms, which may be related to prolonged immobilization or increased activity demands. Discussion included expected progression through therapy, potential use of ice or heat modalities for inflammation, stiffness, or discomfort, and strategies for monitoring symptom provocation. Patient was instructed in a home exercise program including gentle active range of motion exercises for the wrist and digits, tendon gliding exercises, and thumb opposition with use of the left hand to assist as needed. Emphasis was placed on remaining within a pain-free range and avoiding overexertion. 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 Patient demonstrated good understanding and return demonstration of the home program. Short Term Goals Short Term Goals Within 6 weeks: 1. Patient will perform home tendon gliding and AROM exercises independently with 100% accuracy in form and adherence at least 5 days/week as reported or documented. 2. Patient will report a =50% reduction in frequency and severity of paresthesia in R hand during daily activities and sleep, as measured by subjective report and symptom log. 3. 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 Half-Way Goals Half-Way Goals Within 10 weeks: 1. 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 2. Patient will perform all functional grasp, release, and manipulation tasks with RUE during simulated work tasks without symptom provocation and with normalized movement patterns. 3. Patient will demonstrate full pain-free AROM of the R hand and wrist, including digit flexion and extension within functional limits for age and job demands. 4. Patient will increase perceived level of independence during ADL and IADL task as evidenced by a QuickDASH score of </= 20 for all sections. Assessment/Plan Assessment Patient Response Good Rehabilitation Excellent Potential Impairments ADLs,Body Mechanics,Coordination/Dexterity,Flexibility, Identified Functional Activities,Motor Function,Weakness,Range of Motion,Recreational Activities,Meaningful Activities, Stiffness Treatment Assessment 35 year old RHD male referred to occupational therapy by Hoa Rojas PA-C after a ground level fall while skateboarding on 04/01/25. Pt presents today at 9 weeks post R 3rd and 4th metacarpal fractures with residual stiffness and moderate weakness of the R hand. 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 Paresthesia in the ulnar nerve distribution has emerged in the last week, potentially related to post-immobilization nerve irritation or cumulative stress with return to activity. Patient is highly motivated and demonstrates good insight and carryover. Will continue to benefit from skilled OT for progression of AROM, strengthening, edema/paresthesia management, and functional task retraining for return to full work participation. Home Exercise introduced tendon glides, AROM stretches Program Reviewed with Goals,Progress Being Made,Home Exercise Program Patient Patient Good Understanding Plan Length of treatment 12 (weeks) Plan of Care Start 06/04/25 Date Plan of Care End 08/27/25 Date Comment 1-2x week as needed Treatment Frequency Once a Week Treatment Duration 45 Minutes Therapeutic Contents Active Range of Motion,Client Education,Functional Activities,Home Exercise Program,Education,Self-Care, Stretching/Flexibility Activities,Therapeutic Activities,Therapeutic Exercises,Modalities Modalities As Needed Types of Modalities Other Additional Types of ice bath, MHP, paraffin Modalities Patient Instruction Home Exercise Program,Plan of Care,Questions/Concerns Patient Continue with Current Program Recommendations Functional Wrist/Hand Scan Hand Side Sensory Assessment Sensory Profile2 OT Outpatient Treatment Note - Adult Start: 06/04/25 08:31 Freq: Status: Active Protocol: Document 09/18/25 12:41 (Rec: 08/30/25 10:46 [id number]) OT Outpatient Adult Treatment Note Visit Information Plan of Care Dates 06/04/25-09/19/25 Insurance no pre-auth;no copay/deductible;max 12 OT visits, Information including 1 evaluation Setting Treatment Setting Outpatient Care Visit Type Note Type Discharge Summary General Information General Information POC extended per patient request at last visit however final 2 visits were cancelled without reschedule, will discharge at this time as patient has achieved significant progress and improved function. Patient aware at last session that if symptoms worsen or persist, a new referral can be placed. - - Objective Short Term Goals Within 6 weeks: 1. Patient will perform home tendon gliding and AROM exercises independently with 100% accuracy in form and adherence at least 5 days/week as reported or documented. [MET 06/18/25] 2. Patient will report a =50% reduction in frequency and severity of paresthesia in R hand during daily activities and sleep, as measured by subjective report and symptom log. [MET 08/06/25] 3. 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 [ PARTIALLY MET 09/18/25] 2. Patient will perform all functional grasp, release, and manipulation tasks with RUE during simulated work tasks without symptom provocation and with normalized movement patterns. [MET 08/06/25] 3. Patient will demonstrate full pain-free AROM of the R hand and wrist, including digit flexion and extension within functional limits for age and job demands. [MET 08/06/25] 4. Patient will increase perceived level of independence during ADL and IADL task as evidenced by a QuickDASH score of </= 20 for all sections. [MET 08/27] - - Assessment Patient Response to Good Treatment Rehabilitation Excellent Potential Impairments ADLs,Body Mechanics,Coordination/Dexterity,Flexibility, Identified Functional Activities,Motor Function,Weakness,Range of Motion,Recreational Activities,Meaningful Activities, Stiffness Progress Towards Good Progress Goals Assessment of Rehabilitated Overall Progress Assessment of 35-year-old right-hand dominant male who sustained Improvement right 3rd and 4th metacarpal fractures after a skateboard fall on 04/01/25. At initial evaluation (06/04), he presented with significant swelling, stiffness , and weakness in the right hand and limited composite and hook fist formation. Sensory symptoms included intermittent tingling in the middle, ring, and small fingers. Skilled OT intervention included progressive AROM, tendon gliding, edema management, therapeutic strengthening with putty and Flexbar, coordination and dexterity retraining, proprioceptive and sensory activities, and use of tuning fork and massage for fascial mobility and neural desensitization. Education was provided throughout on activity modification, home exercise adherence, and symptom management. Since initiation of therapy, the patient has demonstrated excellent progress. Objective measures show substantial gains in computer hardware developer strength from 19.7 kg to 42 kg, improved pinch strength from 17.3 lbs to 20.3 lbs, and full, pain-free AROM of the right hand and wrist. QuickDASH scores improved from 34.1 to 18, reflecting increased perceived independence and reduction in functional limitation. All short-term and long-term goals were met except for full computer hardware developer strength symmetry, which is functionally adequate for his daily and occupational needs. 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 Mild recurrent paresthesia is likely attributable to increased hand use and potential early carpal tunnel irritation rather than fracture-related deficits. The patient was educated on conservative carpal tunnel management and advised to seek re-evaluation if symptoms persist or worsen. At this time, he has achieved functional recovery from his metacarpal fractures and is appropriate for discharge from occupational therapy. Home Exercise Tendon glides, theraputty hand/finger/wrist, retrograde Program massage, extension/flexion with resistance, ADDED: upper extremity nerve glides for the ulnar, radial, and median nerves, prayer/reverse prayer stretches-UPDATED 07/09/25-WB on BUE at table with graded pressure, isometric wrist flex/ext Reviewed with Goals,Progress Being Made,Home Exercise Program Patient/Caregiver Patient/Caregiver Good Understanding - Plan Therapy Discharge to Home Exercise Program,Discharge from Recommendations Occupational Therapy Amount of Therapy No Further Therapy Recommended Frequency of No Further Therapy Treatment Therapeutic Contents Active Range of Motion,Client Education,Functional Activities,Home Exercise Program,Education,Self-Care, Stretching/Flexibility Activities,Therapeutic Activities,Therapeutic Exercises,Modalities Modalities As Needed Types of Modalities Other Additional Types of ice bath, MHP, paraffin Modalities
== END 2025-09-19 12:29 | disposition home or self-care (01) ==
LOC: OT 11:30
PROVIDERS: Family Provider Family Medicine; PCP Family Medicine; Referring Provider Physician Assistant Surgical; Visit Provider Physician Assistant Surgical
DX: S62.324D Displaced fracture of shaft of fourth metacarpal bone, right hand, subsequent encounter for fracture with routine healing (principal); S62.322D Displaced fracture of shaft of third metacarpal bone, right hand, subsequent encounter for fracture with routine healing
CPT/HCPCS: 97110; 97165; 97530